=== PATIENT | female | born 1960 | race Two or more races ===

== ENCOUNTER 2020-09-20 12:51 | Outpatient (REF) | payer OTHER, SELFPAY ==
[2020-09-20 14:06] LABS: Alanine Aminotransferase 14 U/L (0-31); Albumin Level 4.1 g/dL (3.5-5.0); Alkaline Phosphatase 70 U/L (39-117); Anion Gap 10 (12-20); Aspartate Amino Transferase 17 U/L (5-31); Bilirubin Total 0.4 mg/dL (0.0-1.0); Blood Urea Nitrogen 14 mg/dL (9-16); Calcium 9.6 mg/dL (8.4-10.2); Carbon Dioxide 28 mmol/L (22-29); Chloride 106 mmol/L (96-108); Cholesterol 201 mg/dL; Estimated Glomerular Filt Rate > 60; Glucose Fasting 96 mg/dL (60-99); HDL Cholesterol 49 mg/dL; LDL Cholesterol Calculated 134 mg/dl; Potassium 4.3 mmol/L (3.3-5.1); Sodium 140 mmol/L (135-145); Total Protein 7.3 g/dL (6.5-8.0); Triglycerides 91 mg/dL
[2020-09-20 14:28] LABS: Vitamin D 25-OH Total 32.7 ng/mL (>30)
== END 2020-09-20 12:52 | disposition home or self-care (01) ==
LOC: HO.LAB 12:51
PROVIDERS: PCP Internal Medicine; Visit Provider Internal Medicine
DX: E55.9 Vitamin D deficiency, unspecified (principal); Z82.49 Family history of ischemic heart disease and other diseases of the circulatory system
CPT/HCPCS: 36415; 80053; 80061; 82306

== ENCOUNTER 2021-01-24 13:16 | Outpatient (REF) | payer OTHER, SELFPAY ==
[2021-01-25 01:10] LABS: CT PCR NOT DETECTED (Not Detect.); NG PCR NOT DETECTED (Not Detect.)
[2021-01-28 12:27] LABS: HPV mRNA E6/E7 rflx Not Detected (Not Detected)
== END 2021-01-24 13:17 | disposition home or self-care (01) ==
LOC: HO.LAB 13:16
PROVIDERS: PCP Internal Medicine; Visit Provider Advanced Practice Midwife
DX: Z01.419 Encounter for gynecological examination (general) (routine) without abnormal findings (principal); Z20.2 Contact with and (suspected) exposure to infections with a predominantly sexual mode of transmission
CPT/HCPCS: 87491; 87591; 87624; 88142

== ENCOUNTER 2021-03-01 12:56 | Outpatient (REF) | payer OTHER, SELFPAY ==
--- NOTE | ~2021-03-01 | MM_ITS ---
EXAMINATION: MM SCREENING DIGITAL BREAST TOMOSYNTHESIS, BILATERAL CLINICAL INFORMATION: Screening. Asymptomatic. The lifetime risk of breast cancer based on the Tyrer-Cuzick Model is 12%. COMPARISON: Mammography: 09/02/2017, 08/15/2016, 05/03/2015 TECHNIQUE: Digital breast tomosynthesis is performed in both the craniocaudal and mediolateral oblique views along with computer-aided detection (CAD). Synthesized 2D images are generated from the tomosynthesis. FINDINGS: There are scattered areas of fibroglandular density (ACR BI-RADS breast composition Category b). There are no significant masses, abnormal calcifications, or other abnormalities. Parenchymal pattern is similar to prior studies. There is no developing density or architectural abnormality. The axilla and skin contours are unremarkable. No significant changes. MM/MM tomosynthesis screening BI IMPRESSION: No mammographic evidence of malignancy. ASSESSMENT: BI-RADS 1: Negative RECOMMENDATION: Routine annual mammography screening. This patient's information was entered into a reminder system with a target due date for their next mammogram.
== END 2021-03-01 12:57 | disposition home or self-care (01) ==
LOC: HO.MAMMO 12:56
PROVIDERS: Visit Provider Advanced Practice Midwife
DX: Z12.31 Encounter for screening mammogram for malignant neoplasm of breast (principal)
CPT/HCPCS: 77063; 77067

== ENCOUNTER 2021-11-11 08:53 | Outpatient (REF) | payer OTHER, SELFPAY ==
[2021-11-11 09:05] LABS: MANUAL DIFF FLAG NO
[2021-11-11 09:12] LABS: Basophils Percent Auto 0.4 % (0-2); Eosinophils Percent Auto 0.4 % (0-4); Hematocrit 41.8 % (37.0-47.0); Hemoglobin 13.7 g/dl (12.0-16.0); Imm Gran Abs Auto 0.01 X10*3/uL (0.00-0.03); Imm Gran Pct Auto 0.1 % (0.0-0.4); Lymphocytes Percent Auto 40.4 % (20-40); Mean Corpuscular HGB Conc 32.8 g/dl (31.0-35.0); Mean Corpuscular Hemoglobin 30.4 pg (27.0-33.0); Mean Corpuscular Volume 92.7 fL (80.0-98.0); Mean Platelet Volume 11.3 fL (9.4-12.3); Monocytes Absolute Auto 0.6 X10*3/uL (0.1-1.2); Monocytes Percent Auto 8.1 % (2-11); Neutrophils Absolute Auto 3.8 x10*3/uL (2.0-8.3); Neutrophils Percent Auto 50.6 % (45-73); Platelet Count 262 X10*3/uL (160-400); Red Blood Count 4.51 X10*6/uL (4.20-5.50); Red Cell Distribution Width 13.1 % (11.0-16.0); White Blood Count 7.5 X10*3/uL (4.8-10.8)
[2021-11-11 09:44] LABS: Alanine Aminotransferase 15 U/L (0-31); Albumin Level 4.3 g/dL (3.5-5.0); Alkaline Phosphatase 75 U/L (39-117); Anion Gap 14 (12-20); Aspartate Amino Transferase 18 U/L (5-31); Bilirubin Total 0.4 mg/dL (0.0-1.0); Blood Urea Nitrogen 15 mg/dL (9-16); Calcium 9.7 mg/dL (8.4-10.2); Carbon Dioxide 25 mmol/L (22-29); Chloride 106 mmol/L (96-108); Cholesterol 217 mg/dL; Estimated Glomerular Filt Rate > 60; Glucose Fasting 94 mg/dL (60-99); HDL Cholesterol 50 mg/dL; LDL Cholesterol Calculated 150 mg/dl; Potassium 4.1 mmol/L (3.3-5.1); Sodium 141 mmol/L (135-145); Total Protein 7.5 g/dL (6.5-8.0); Triglycerides 89 mg/dL
[2021-11-11 10:05] LABS: Free T4 (Free Thyroxine) 1.15 ng/dL (0.71-1.85); Thyroid Stimulating Hormone 1.63 uIU/mL (0.32-4.0); Vitamin D 25-OH Total 30.7 ng/mL (>30)
[2021-11-11 11:09] LABS: Folate 19.4 ng/mL (> or = 4.0); Vitamin B12 795 pg/mL (200-900)
== END 2021-11-11 08:54 | disposition home or self-care (01) ==
LOC: HO.LAB 08:53
PROVIDERS: PCP Internal Medicine; Visit Provider Internal Medicine
DX: Z00.00 Encounter for general adult medical examination without abnormal findings (principal); E78.5 Hyperlipidemia, unspecified; R53.82 Chronic fatigue, unspecified; E55.9 Vitamin D deficiency, unspecified
CPT/HCPCS: 36415; 80053; 80061; 82306; 82607; 82746; 84439; 84443; 85025

== ENCOUNTER 2022-03-05 12:04 | Outpatient (REF) | payer OTHER, SELFPAY ==
--- NOTE | ~2022-03-05 | MM_ITS ---
EXAMINATION: MM SCREENING DIGITAL BREAST TOMOSYNTHESIS, BILATERAL CLINICAL INFORMATION: Screening. Asymptomatic. The lifetime risk of breast cancer based on the Tyrer-Cuzick Model is 10.5%. COMPARISON: Mammography: March 01, 2021 and studies dating back to April 04, 2014 TECHNIQUE: Digital breast tomosynthesis is performed in both the craniocaudal and mediolateral oblique views along with computer-aided detection (CAD). Synthesized 2D images are generated from the tomosynthesis. FINDINGS: The breasts are heterogeneously dense, which may obscure small masses (ACR BI-RADS breast composition Category c). There are no new significant masses, abnormal calcifications, or other abnormalities. A stable asymmetric density seen superior aspect of the left breast. MM/MM tomosynthesis screening BI IMPRESSION: No significant changes from prior exam. ASSESSMENT: BI-RADS 2: Benign RECOMMENDATION: Routine annual mammography screening. This patient's information was entered into a reminder system with a target due date for their next mammogram.
== END 2022-03-05 12:05 | disposition home or self-care (01) ==
LOC: HO.MAMMO 12:04
PROVIDERS: PCP Internal Medicine; Visit Provider Advanced Practice Midwife
DX: Z12.31 Encounter for screening mammogram for malignant neoplasm of breast (principal)
CPT/HCPCS: 77063; 77067

== ENCOUNTER 2022-04-23 10:31 | Outpatient (REF) | payer OTHER, SELFPAY ==
[2022-04-23 11:59] LABS: Anion Gap 13 (12-20); Blood Urea Nitrogen 24 mg/dL (9-16); Calcium 9.4 mg/dL (8.4-10.2); Carbon Dioxide 26 mmol/L (22-29); Chloride 107 mmol/L (96-108); Estimated Glomerular Filt Rate > 60; Glucose Fasting 95 mg/dL (60-99); Potassium 4.4 mmol/L (3.3-5.1); Sodium 142 mmol/L (135-145)
== END 2022-04-23 10:32 | disposition home or self-care (01) ==
LOC: HO.LAB 10:31
PROVIDERS: PCP Internal Medicine; Visit Provider Nurse Practitioner Family
DX: Z13.1 Encounter for screening for diabetes mellitus (principal); L98.9 Disorder of the skin and subcutaneous tissue, unspecified
CPT/HCPCS: 36415; 80048

== ENCOUNTER 2022-06-03 06:28 | Emergency (ER) | payer OTHER, SELFPAY ==
--- NOTE | ~2022-06-03 | XR_ITS ---
EXAMINATION: XR CHEST CLINICAL INFORMATION: SOB COMPARISON: None available. TECHNIQUE: 2 views of the chest were obtained. FINDINGS: No significant abnormality is noted involving the heart, lungs, mediastinum, bony thorax or soft tissues. XR/XR chest 2V IMPRESSION: Unremarkable chest exam.
[2022-06-03 06:39] VITALS: BP 120/70; BP 126/65; PULSE 67; PULSE 70; RESP 17; TEMP 37.1; O2SAT 100; BMI 22.3
--- NOTE | 2022-06-03 06:45 | ED_ITS ---
HPI - Asthma General Chief Complaint: Asthma Stated Complaint: SOB, 100% RA,FULL SENTENCES PER EMS Time Seen by Provider: 06/03/22 06:39 Source: patient and EMS Mode of arrival: EMS History of Present Illness HPI Narrative: 61-year-old female with a past medical history of asthma, HLD, presenting to the ED complaining sudden onset SOB since 04:00AM. Admits symptoms are intermittent. Denies associated chest pain, nausea/vomiting, pedal edema, calf pain. Admits grandson recently positive for influenza. MD complaint: shortness of breath Onset (ago): hour(s) Related Data Previous Rx's Medication Instructions Recorded albuterol sulfate 90 mcg/actuation 2 inh inhalation Q4-6H PRN 03/13/20 breath activated powder inhaler shortness of breath or wheezing 30 (ProAir RespiClick) days #1 ea cholecalciferol (vitamin D3) 25 25 mcg PO DAILY #30 caps 06/26/21 mcg (1,000 unit) tablet fluticasone propionate 50 2 inh inhalation BID 30 days #60 ea 06/26/21 mcg/actuation blister powder for inhalation (Flovent Diskus) hydrocortisone 1 % topical cream 1 appl topical TID PRN skin 04/04/22 (Anti-Itch (hydrocortisone)) irritation 30 days #28.4 grams albuterol sulfate 2.5 mg/3 mL 0.8333 mg PO Q6H #90 mL 04/16/22 (0.083 %) solution for nebulization Allergies Allergy/AdvReac Type Severity Reaction Status Date / Time Sulfa (Sulfonamide Allergy Intermediate swelling, Verified 04/22/22 15:40 Antibiotics) itchiness Review of Systems Review of Systems: Constitutional: No Fever, No Chills, No Fatigue, No Malaise ENT/Mouth: No Ear Pain, No Nasal Congestion, No sore throat, No Rhinorrhea, No Swallowing Difficulty Eyes: No Eye Pain, No Swelling, No Redness, No Vision Changes Cardiovascular: No Chest Pain, + SOB, No Dyspnea on Exertion, No Orthopnea, No Edema, No Palpitations Respiratory: No Cough, No Sputum, No Dyspnea Gastrointestinal: No Nausea, No Vomiting, No Diarrhea, No Constipation, No Abdominal pain Genitourinary: No Dysuria, No Urinary Frequency, No Hematuria, No Flank Pain Musculoskeletal: No joint pain, No Myalgias, No Joint Swelling Skin: No Skin Lesions, No rash Neuro: No Weakness, No Numbness, No Dizziness, No Headache Yes all other systems are reviewed and are negative Constitutional: Constitutional: Reports as per [facility] Past Medical History Attestation statement: The following information was validated with the patient. Medical History Hypovitaminosis D Moderate persistent asthma Pure hypercholesterolemia Surgical History History of tubal ligation Family History Family History Father Asthma Heart attack Mother Heart attack Asthma Sister History of breast cancer Family/Other Ovarian cancer Maternal Uncle Prostate cancer Paternal Uncle Colon cancer Social History Social History Housing: Apartment Alcohol intake: never Patient Tobacco Use Status: Never used Tobacco Smoked in Last 30 Days: No e-Cigarette/Vaping Use: Never Used Second Hand Smoke Exposure: No Advance Directives: No Advance Directives Information Provided: Yes Patient : No service: No Current occupational status: disabled Cognitive needs: No Hearing needs: No Vision needs: Yes Physical Exam Vital Signs: Vital Signs: Last Vital Signs Temp 98.6 F 06/03/22 07:44 Pulse 66 06/03/22 11:26 Resp 10 L 06/03/22 11:26 BP 117/65 06/03/22 11:26 Pulse Ox 98 06/03/22 11:26 O2 Del Method Room Air 06/03/22 11:26 BMI result Body Mass Index 22.3 Const: General: cooperative, healthy appearing and no acute distress Orientation/consciousness: patient oriented x3 Limitations: no limitations HEENT: Head: Yes normal to inspection and Yes atraumatic Ears: hearing pablo sly normal bilaterally General nose exam: Normal external nose present Face and sinus: Yes normal facial exam Eyes: General: appearance normal, both eyes and all related structures EOM: EOMs intact bilaterally Neck: Neck: Yes normal visual inspection and Yes no meningeal signs Resp: Effort & Inspection: normal respiratory effort and no respiratory distress Auscultation: clear to auscultation bilaterally, no crackles, no rales, no rhonchi and no wheezes Cardio: Rate: regular rate Heart sounds: S1 normal heart sound present and S2 normal heart sound present GI: Inspection: Yes normal to inspection Palpation (GI): Soft to palpation, nontender, no guarding and not rigid Skin: Rashes: no rashes Wounds: no wounds Neuro: General: patient oriented x3, tone normal and no meningeal signs Gait exam (Neuro): Normal gait present Extrem: General: Yes normal to inspection, Yes no pedal edema and Yes no calf tenderness Course Course Course Narrative: -1117--labs reassuring. Troponin x2 negative -CXR unremarkable Results discussed with patient including worrisome signs and symptoms and strict return precautions, and when to return to the emergency department. They verbalized understanding and feel safe for discharge at this time. Medical Decision Making Medical Decision Making MDM Narrative: 61-year-old female with a past medical history of asthma, HLD, presenting to the ED complaining sudden onset SOB since 04:00AM. On exam vital signs stable, NAD, nontoxic appearing, lungs CTA, abdomen soft/nontender, no pedal edema or calf tenderness. Concern for anxiety reaction vs atypical ACS vs ? Asthma exacerbation. Low suspicion for CHF or PE or dissection Plan: EKG, labs, CXR, COVID/flu testing Please refer to course for remaining clinical decision making, interpretation of labs/imaging results, and discussions with consultants and/or family members. Differential Diagnosis Differential Diagnoses: The differential diagnosis associated with the presentation includes As above Admission/Observation Consideration of admission/observation: Escalation of care including admission/observation considered Lab Data [facility] Lab Attestation statement: I reviewed the patient's lab results. 06/03/22 07:56 06/03/22 07:56 Labs: Lab Results 06/03/22 06/03/22 06/03/22 Range/Units 07:56 07:56 07:56 WBC 7.7 (4.8-10.8) X10*3/uL RBC 4.21 (4.20-5.50) X10*6/uL Hgb 12.7 (12.0-16.0) g/dl Hct 38.9 (37.0-47.0) % MCV 92.4 (80.0-98.0) fL MCH 30.2 (27.0-33.0) pg MCHC 32.6 (31.0-35.0) g/dl RDW 12.5 (11.0-16.0) % Plt Count 260 (160-400) X10*3/uL MPV 11.3 (9.4-12.3) fL Immature Gran % (Auto) 0.3 (0.0-0.4) % Neut % (Auto) 64.9 (45-73) % Lymph % (Auto) 26.2 (20-40) % Dupage % (Auto) 8.2 (2-11) % Eos % (Auto) 0.3 (0-4) % Baso % (Auto) 0.1 (0-2) % Lymph # (Auto) 2.0 (1.2-4.9) X10*3/uL Dupage # (Auto) 0.6 (0.1-1.2) X10*3/uL Eos # (Auto) 0.0 (0.0-0.4) X10*3/uL Baso # (Auto) 0.0 (0.0-0.2) X10*3/uL Abs Immat Gran (auto) 0.02 (0.00-0.03) X10*3/uL Absolute Neuts (auto) 5.0 (2.0-8.3) x10*3/uL Absolute Nucleated RBC 0.000 (0.0-0.012) X10*3/uL Nucleated RBC % (auto) 0.0 (0.0-0.2) /100WBC Sodium 143 (135-145) mmol/L Potassium 3.8 (3.3-5.1) mmol/L Chloride 110 H (96-108) mmol/L Carbon Dioxide 27 (22-29) mmol/L Anion Gap 10 L (12-20) BUN 18 H (9-16) mg/dL Creatinine 0.69 (0.5-1.4) mg/dL Estim Creat Clear Calc 85.3 Estimated GFR > 60 Random Glucose 95 (60-115) mg/dL Calcium 9.4 (8.4-10.2) mg/dL Troponin I High Sens < 2.7 (<3.5-17.0) ng/L COVID-19 (MARIFER) (Negative) COVID-19 Clin Com Influenza Type A (HAKEEM) (Negative) Influenza Type B (HAKEEM) (Negative) Influenza A & B Note 06/03/22 06/03/22 06/03/22 Range/Units 07:56 07:56 10:46 WBC (4.8-10.8) X10*3/uL RBC (4.20-5.50) X10*6/uL Hgb (12.0-16.0) g/dl Hct (37.0-47.0) % MCV (80.0-98.0) fL MCH (27.0-33.0) pg MCHC (31.0-35.0) g/dl RDW (11.0-16.0) % Plt Count (160-400) X10*3/uL MPV (9.4-12.3) fL Immature Gran % (Auto) (0.0-0.4) % Neut % (Auto) (45-73) % Lymph % (Auto) (20-40) % Dupage % (Auto) (2-11) % Eos % (Auto) (0-4) % Baso % (Auto) (0-2) % Lymph # (Auto) (1.2-4.9) X10*3/uL Dupage # (Auto) (0.1-1.2) X10*3/uL Eos # (Auto) (0.0-0.4) X10*3/uL Baso # (Auto) (0.0-0.2) X10*3/uL Abs Immat Gran (auto) (0.00-0.03) X10*3/uL Absolute Neuts (auto) (2.0-8.3) x10*3/uL Absolute Nucleated RBC (0.0-0.012) X10*3/uL Nucleated RBC % (auto) (0.0-0.2) /100WBC Sodium (135-145) mmol/L Potassium (3.3-5.1) mmol/L Chloride (96-108) mmol/L Carbon Dioxide (22-29) mmol/L Anion Gap (12-20) BUN (9-16) mg/dL Creatinine (0.5-1.4) mg/dL Estim Creat Clear Calc Estimated GFR Random Glucose (60-115) mg/dL Calcium (8.4-10.2) mg/dL Troponin I High Sens < 2.7 (<3.5-17.0) ng/L COVID-19 (MARIFER) Negative (Negative) COVID-19 Clin Com See Note Influenza Type A (HAKEEM) Negative (Negative) Influenza Type B (HAKEEM) Negative (Negative) Influenza A & B Note See Note Independent Interpretation I performed an independent interpretation of an: EKG Interpretation: EKG normal sinus rhythm at a rate of 64. CT interval 160. QTC 429. No STEMI Radiology Impression Discussion of test interpretation with radiology: I have reviewed the radiologist's reading. External Record Review External record reviewed: Inpatient record, Office record, Outpatient record, P rior outpatient labs, Prior outpatient radiology, Primary care record and Outside ED record Discharge Plan Discharge Clinical Impression: Shortness of breath Patient Disposition: Home, Self-Care Instructions: Shortness of Breath (ED) Additional Instructions: Your blood work and x-ray were reassuring Please follow-up with her doctor If symptoms persist or worsen return to the Prescriptions: No Action ProAir RespiClick 90 mcg/actuation aerosol powdr breath activated 2 inh inhalation Q4-6H PRN (Reason: shortness of breath or wheezing) 30 Days Qty: 1 6RF Flovent Diskus 50 mcg/actuation blister with device 2 inh inhalation BID 30 Days Qty: 60 6RF cholecalciferol (vitamin D3) 25 mcg (1,000 unit) tablet 25 mcg PO DAILY Qty: 30 6RF hydrocortisone [Anti-Itch (HC)] 1 % cream 1 appl topical TID PRN (Reason: skin irritation) 30 Days Qty: 28.4 0RF albuterol sulfate 2.5 mg /3 mL (0.083 %) solution for nebulization 0.8333 mg PO Q6H Qty: 90 0RF Referrals: Rama Mays MD [Primary Care Provider] - 5 days Interventions: ED Discharge Assessment Last Done: 06/03/22 12:32 Discharge Date/Time: 06/03/22 12:33
--- NOTE | 2022-06-03 06:50 | ECG_ITS ---
Test Reason : SOB Blood Pressure : / mmHG Vent. Rate : 065 BPM Atrial Rate : 065 BPM P-R Int : 148 ms QRS Dur : 086 ms QT Int : 418 ms P-R-T Axes : 026 050 062 degrees QTc Int : 434 ms Normal sinus rhythm Septal infarct , age undetermined Abnormal ECG No previous ECGs available Referred By: Courtney Calderon Electronically Signed By:NENO MORENO
[2022-06-03 07:44] VITALS: BP 124/76; PULSE 65; RESP 14; TEMP 37; O2SAT 97
[2022-06-03 08:05] LABS: MANUAL DIFF FLAG NO
[2022-06-03 08:07] LABS: Basophils Percent Auto 0.1 % (0-2); Eosinophils Percent Auto 0.3 % (0-4); Hematocrit 38.9 % (37.0-47.0); Hemoglobin 12.7 g/dl (12.0-16.0); Imm Gran Abs Auto 0.02 X10*3/uL (0.00-0.03); Imm Gran Pct Auto 0.3 % (0.0-0.4); Lymphocytes Percent Auto 26.2 % (20-40); Mean Corpuscular HGB Conc 32.6 g/dl (31.0-35.0); Mean Corpuscular Hemoglobin 30.2 pg (27.0-33.0); Mean Corpuscular Volume 92.4 fL (80.0-98.0); Mean Platelet Volume 11.3 fL (9.4-12.3); Monocytes Absolute Auto 0.6 X10*3/uL (0.1-1.2); Monocytes Percent Auto 8.2 % (2-11); Neutrophils Percent Auto 64.9 % (45-73); Platelet Count 260 X10*3/uL (160-400); Red Blood Count 4.21 X10*6/uL (4.20-5.50); Red Cell Distribution Width 12.5 % (11.0-16.0); White Blood Count 7.7 X10*3/uL (4.8-10.8)
[2022-06-03 08:22] LABS: Anion Gap 10 (12-20); Blood Urea Nitrogen 18 mg/dL (9-16); Calcium 9.4 mg/dL (8.4-10.2); Carbon Dioxide 27 mmol/L (22-29); Chloride 110 mmol/L (96-108); Creatinine Clr Calc Pharmacy 85.3; Estimated Glomerular Filt Rate > 60; Glucose Random 95 mg/dL (60-115); Potassium 3.8 mmol/L (3.3-5.1); Sodium 143 mmol/L (135-145)
[2022-06-03 08:24] LABS: COVID-19 Test Negative (Negative); IDNOW Serial# 08D9AD1C; IDNOW Serial# BCCEAD1C; Influenza A Negative (Negative); Influenza B2 Negative (Negative)
[2022-06-03 08:35] LABS: Troponin-I High Sensitivity < 2.7 ng/L (<3.5-17.0)
[2022-06-03 11:14] LABS: Troponin-I High Sensitivity < 2.7 ng/L (<3.5-17.0)
[2022-06-03 11:26] VITALS: BP 117/65; PULSE 66; RESP 10; O2SAT 98
== END 2022-06-03 12:33 | disposition home or self-care (01) ==
PROVIDERS: Physician Assistant; Emergency Provider Emergency Medicine; PCP Internal Medicine
DX: R06.02 Shortness of breath (principal); Z20.822 Contact with and (suspected) exposure to COVID-19
CPT/HCPCS: 36415; 71046; 80048; 84484; 85025; 87502; 87635; 93005; 99283; 99284

== ENCOUNTER 2022-06-11 13:35 | Outpatient (REF) | payer OTHER, SELFPAY ==
[2022-06-11 15:42] LABS: Appearance Urine Clear; Color Urine Yellow; Glucose Urine UA Negative (Negative); Leukocyte Esterase Urine Moderate (2+) (Negative); Nitrite Urine Negative (Negative); PH 5.5 (5.0-9.0); Specific Gravity - Urine 1.025 (1.005-1.025); UMIC TRIGGER UACC YES; Urine Blood Trace (Negative); Urine Ketones Trace mg/dL (Negative); Urine Protein Trace mg/dL (Neg-Trace)
[2022-06-11 17:10] LABS: Bacteria Urine 3+ (None Seen); Hyaline Casts Urine 0-2 /LPF (0-2); RBC Urine 0-2 /HPF (0-2); Squamous Epithelial Cell Urine 0-2 /HPF (0-2); UACC Culture Trigger YES
== END 2022-06-11 13:36 | disposition home or self-care (01) ==
LOC: HO.LAB 13:35
PROVIDERS: PCP Internal Medicine; Visit Provider Internal Medicine
DX: R30.0 Dysuria (principal)
CPT/HCPCS: 81001; 87086; 87088; 87186

== ENCOUNTER 2022-10-14 15:07 | Outpatient (REF) | payer OTHER, SELFPAY ==
--- NOTE | 2022-10-14 16:07 | PFT_ITS ---
FLOWS: 1. FEV1 91% of predicted at 2.62 L. 2. FVC 85% of predicted at 3.19 L. 3. FEV1 to FVC ratio of 0.82. 4. Positive bronchodilator response. LUNG VOLUMES: 1. Total lung capacity 83% of predicted at 4.63 L. 2. Residual volume 45% of predicted at 1.03 L. 3. Slow vital capacity 106% of predicted at 3.61 L. 4. Expiratory reserve volume 62% of predicted at 0.61 L. 5. Diffusion capacity is mildly decreased. IMPRESSION: No obstructive or restrictive ventilatory defect. Positive bronchodilator response. Decreased diffusion capacity suggests emphysema. Jose Guadalupe Amos MD AP/MODL / [id number]
== END 2022-10-14 15:08 | disposition home or self-care (01) ==
LOC: HO.RESP 15:07
PROVIDERS: PCP Internal Medicine; Visit Provider Internal Medicine
DX: J45.30 Mild persistent asthma, uncomplicated (principal)
CPT/HCPCS: 94010; 94727; 94729

== ENCOUNTER → 2022-10-14 16:07 | Outpatient (BNV) | payer OTHER, SELFPAY | PROVIDERS: PCP Internal Medicine; Visit Provider Internal Medicine Pulmonary Disease | DX: J45.30 Mild persistent asthma, uncomplicated (principal) | CPT/HCPCS: 94060; 94727; 94729 ==

== ENCOUNTER 2022-11-12 12:48 | Outpatient (AMB) | payer OTHER, SELFPAY ==
--- NOTE | 2022-11-12 12:50 | MHC.PC.OV ---
Vital Signs 11/12/22 12:53 Height 5 ft 8 in Weight 150 lb BMI 22.8 BP 110/62 Blood Pressure Location Lt brachial Position Sitting Intake Visit Reasons: Annual Exam Intake Note: Patient here for an annual physical exam General House Worker Required: No Accompanied by: Spouse Allergies Sulfa (Sulfonamide Antibiotics) Allergy (Intermediate, Verified 11/12/22 13:08) swelling, itchiness Medication List - Last Reconciled 11/12/22 by Rama Lockett MD albuterol sulfate 90 mcg/actuation (ProAir RespiClick) 2 inhalations inhalation Q4-6H PRN 30 days albuterol sulfate 0.8333 mg PO Q6H cholecalciferol (vitamin D3) 25 mcg PO DAILY clotrimazole 1% (Antifungal (clotrimazole)) 1 appl topical BID 2 weeks fluticasone propionate 50 mcg/actuation (Flovent Diskus) 2 inhalations inhalation BID 30 days hydrocortisone 1% (Anti-Itch (hydrocortisone)) 1 appl topical TID PRN 30 days Tobacco use date assessed: 04/22/22 Dental Screening Dental Screen Date: 11/12/22 Did you have a dental visit in the last 12 months?: Yes Did you have a dental problem in the last 6 months where you did not have access to dental care?: No Was dental information given to patient?: Patient has dentist HPI HPI Comments History of Present Illness Details This is a 62-year-old female that comes accompanied for her physical exam. Depression is in remission but she cannot sleep well. She also has headaches few times a week. Last mammogram was February 2022 but she has noticed a right breast lump at 04:00 o'clock and ultrasound of the breast and diagnostic mammogram will be order. Cologuard was done 2021 and was negative. Pap smear was done 2020 and was normal with HPV negative. Also complains of right hip pain that has been bothering her for few months but has full active range of motion. [facility] Medical History (Updated 11/12/22 @ 13:27 by Rama Lockett MD) Pure hypercholesterolemia Hypovitaminosis D Moderate persistent asthma Surgical History History of tubal ligation Family History Father Asthma Heart attack Mother Heart attack Asthma Sister History of breast cancer Family/Other Ovarian cancer Maternal Uncle Prostate cancer Paternal Uncle Colon cancer Social History Housing: Apartment Alcohol intake: never Patient Tobacco Use Status: Never used Tobacco e-Cigarette/Vaping Use: Never Used Second Hand Smoke Exposure: No service: No Current occupational status: disabled Cognitive needs: No Hearing needs: No Vision needs: Yes Female Reproductive History Menstrual Age of Menarche: 12 Questionnaire Thrive Questionnaire Date Thrive assessed: 03/17/22 JUSTUS-7 AMB Questionnaire JUSTUS-7 Date JUSTUS - 7 assessed: 03/17/22 Source: Developed by Drs. Narayan Nuñez, Thea Fisher, Radhames Young and colleagues, with an educational mark from [employer]. Review of Systems Const All systems reviewed & are unremarkable except as noted in HPI and below Eyes Reports no additional complaints, Denies change in vision and Denies other visual disturbances Card Denies chest pain at rest, Denies chest pain with activity, Denies edema, Denies irregular heart rhythm, Denies claudication, Denies dyspnea, Denies dyspnea on exertion, Denies orthopnea, Denies paroxysmal nocturnal dyspnea and Denies slow heart rate Resp Denies cough, Denies dyspnea and Denies dyspnea on exertion GI Denies abdominal pain, Denies change in bowel habits, Denies excessive flatus, Denies nausea and Denies vomiting Denies urinary incontinence, Denies urinary hesitancy and Denies urinary urgency Musc Denies abnormal gait, Denies atrophy, Denies deformity and Denies limited range of motion Skin/Breast Denies bleeding lesions, Denies changing lesions and Denies rash Neuro Denies abnormal gait and Denies lack of coordination Physical exam (Primary Care) Vital Signs: Last Vital Signs BP 110/62 11/12/22 12:53 BMI result Body Mass Index 22.8 Tobacco/Smoking Status: Tobacco use Status Tobacco use date assessed 04/22/22 11/12/22 12:52 Patient Tobacco Use Status Never used Tobacco 11/12/22 12:52 e-Cigarette/Vaping Use Never Used 11/12/22 12:52 Thrive Assessment: Date of Thrive Assessment Date Thrive assessed 03/17/22 11/12/22 12:52 Const Orientation/consciousness: patient oriented x3 HENMT Head: Yes normal to inspection, Yes normocephalic and Yes atraumatic Ears: external ears normal Eyes General: appearance normal, both eyes and all related structures Eyelids: Yes eyelids normal Conjunctivae: conjunctivae normal Neck Neck: Yes normal visual inspection and Yes supple Chest Breast/axilla palpation: abnormal palpation of the breast (lump at 4 o'clock) Resp Effort & Inspection: normal respiratory effort Auscultation: clear to auscultation bilaterally Cardio Jugular venous distension: no JVD Rate: regular rate Rhythm: regular rhythm Heart sounds: S1 normal heart sound present and S2 normal heart sound present GI Inspection: Yes normal to inspection Palpation (GI): Soft to palpation and nontender Auscultation: normal bowel sounds Skin General skin exam: no rashes or lesions noted Neuro General: patient oriented x3 and no focal motor deficits Extrem General: Yes full ROM Psych Appearance: grossly normal Assessment and Plan Assessment & Plan (1) Encounter for physical examination: Code(s): Z00.00 - Encounter for general adult medical examination without abnormal findings Plan: Repeat in a year (2) Mild recurrent major depression: Code(s): F33.0 - Major depressive disorder, recurrent, mild Plan: In remission Orders: Orders Vitamin D 25-OH Total Today E55.9 - Vitamin D deficiency, unspecified Lipid Panel Today Z00.00 - Encounter for general adult medical examination without abnormal findings MM diagnostic mammo unilat RT Today N63.10 - Unspecified lump in the right breast, unspecified quadrant Comprehensive Crosby. Panel Fast Today Z00.00 - Encounter for general adult medical examination without abnormal findings US breast RT complete Today N63.10 - Unspecified lump in the right breast, unspecified quadrant XR hip RT min 2V Today M25.551 - Pain in right hip Medications: New sumatriptan succinate do not exceed 8 doses per 24 hrs 25 mg PO Q2-4H 30 days PRN 9 tabs 2RF migraine headache amitriptyline 10 mg PO BEDTIME 90 days 90 tabs 1RF G47.00 - Insomnia, unspecified Changed From cholecalciferol (vitamin D3) 25 mcg PO DAILY 30 caps 6RF To cholecalciferol (vitamin D3) 25 mcg PO DAILY 90 days 90 caps 3RF Coding Level of Care Code Est Pt Prev Care 40-64y(42423) Diagnoses Encounter for physical examination Z00.00 Mild recurrent major depression F33.0 Time Spent (min) 35
[2022-11-12 12:53] VITALS: BP 110/62; BMI 22.8
== END 2022-11-12 13:18 | disposition home or self-care (01) ==
PROVIDERS: Visit Provider Internal Medicine
DX: Z00.00 Encounter for general adult medical examination without abnormal findings (principal); F33.0 Major depressive disorder, recurrent, mild
CPT/HCPCS: 99396

== ENCOUNTER 2022-11-12 13:37 | Outpatient (REF) | payer OTHER, SELFPAY ==
--- NOTE | ~2022-11-12 | XR_ITS ---
EXAMINATION: XR HIP, RIGHT CLINICAL INFORMATION: Pain. COMPARISON: None available. TECHNIQUE: AP and frog-leg lateral views of the right hip. FINDINGS: No fracture. Alignment is anatomic. Hip joint space is maintained. Soft tissues are unremarkable. XR/XR hip RT min 2V IMPRESSION: Normal right hip.
== END 2022-11-12 13:38 | disposition home or self-care (01) ==
LOC: HO.XRAY 13:37
PROVIDERS: PCP Internal Medicine; Visit Provider Internal Medicine
DX: M25.551 Pain in right hip (principal)
CPT/HCPCS: 73502

== ENCOUNTER 2022-11-13 13:31 | Outpatient (AMB) | payer OTHER, SELFPAY ==
--- NOTE | 2022-11-13 13:34 | MHC.OFFVIS ---
Intake Vital Signs 11/13/22 13:39 Height 5 ft 8 in Weight 149 lb 14.629 oz BMI 22.8 BP 92/62 Blood Pressure Location Lt brachial Pulse 79 Pulse Source Doppler Pulse Oximetry (%) 96 Intake Visit Reasons: COPD Allergies Sulfa (Sulfonamide Antibiotics) Allergy (Intermediate, Verified 11/12/22 13:08) swelling, itchiness HPI COPD HPI Details 62-year-old lady, nonsmoker, with underlying history of asthma referred for management of her pulmonary concerns. Patient states she gets intermittent wheezing that is suboptimally controlled on her current regimen of Flovent and albuterol MDI. She does complain of multiple environmental allergies. Patient is scheduled to see in airframe and power plant mechanic. She does not have pets in her house, though her daughter does have a dog in she gets worse allergy symptoms when visiting her. She denies exposure to industrial dusts. Patient's mother and father both have asthma. [facility] Medical History (Updated 11/13/22 @ 14:14 by Jose Guadalupe Amos MD) Pure hypercholesterolemia Hypovitaminosis D Moderate persistent asthma Surgical History History of tubal ligation Family History Father Asthma Heart attack Mother Heart attack Asthma Sister History of breast cancer Family/Other Ovarian cancer Maternal Uncle Prostate cancer Paternal Uncle Colon cancer Social History Housing: Apartment Alcohol intake: never Patient Tobacco Use Status: Never used Tobacco e-Cigarette/Vaping Use: Never Used Second Hand Smoke Exposure: No service: No Current occupational status: disabled Cognitive needs: No Hearing needs: No Vision needs: Yes Female Reproductive History Menstrual Age of Menarche: 12 Review of Systems Const Denies daytime sleepiness, Denies excessive sweating, Denies fatigue, Denies fever(s), Denies lethargy, Denies malaise, Denies night sweats, Denies snoring and Denies weight loss Eyes Denies blurry vision and Denies itchy eyes ENT Denies nasal congestion, Denies post nasal drip, Denies sinus pain, Denies sinus pressure and Denies other ( Thrush) Card Denies chest pain, Denies pedal edema, Denies dyspnea, Denies orthopnea and Denies paroxysmal nocturnal dyspnea Resp Denies cough, Denies hemoptysis, Denies excessive phlegm production, Denies dyspnea, Denies snoring and Reports wheezing GI Denies abdominal pain and Denies heartburn Musc Denies myalgias, Denies arthralgias and Denies joint swelling Skin/Breast Denies rash Neuro Denies memory loss and Denies seizure-like activity Psych Denies abnormal sleep pattern, Denies anxiety and Denies memory loss Endo Denies excessive sweating, Denies fatigue and Denies heat intolerance Cesar/Lymph Denies easy bruising Aller/Immun Denies itchy eyes, Denies seasonal rhinorrhea and Reports wheezing Physical Exam Vital Signs: Last Vital Signs Pulse 79 11/13/22 13:39 BP 92/62 11/13/22 13:39 Pulse Ox 96 11/13/22 13:39 BMI result Body Mass Index 22.8 Const General: no acute distress and alert Nutritional Appearance: not obese Orientation/consciousness: Other orientation findings ( oriented) HEENT Head: Yes atraumatic Eyes General: appearance normal, both eyes and all related structures Sclerae: sclerae normal EOM: EOMs intact bilaterally Neck Neck: Yes supple Lymphatic: no lymphadenopathy noted Resp Effort & Inspection: normal respiratory effort and no use of accessory muscles Auscultation: clear to auscultation bilaterally Cardio Rate: regular rate Rhythm: regular rhythm Heart sounds: no gallops, no murmurs and no rubs Skin General skin exam: other ( warm) Extrem General: No clubbing, No cyanosis and No edema Assessment & Plan Assessment & Plan (1) Moderate persistent asthma: Code(s): J45.40 - Moderate persistent asthma, uncomplicated Plan: Results of pulmonary function test reviewed. Underlying asthma suboptimally controlled on Flovent and albuterol MDI. Will change Flovent to Breo. (2) Environmental allergies: Code(s): Z91.09 - Other allergy status, other than to drugs and biological substances Plan: Will obtain IgE level, CBC with differential, and RAST panel for further evaluation. Orders: Orders Complete Blood Count Auto Diff Today J45.30 - Mild persistent asthma, uncomplicated Rast Allergen Today J45.30 - Mild persistent asthma, uncomplicated Medications: New fluticasone furoate-vilanterol 200-25 mcg/dose (Breo Ellipta) 1 inh inhalation DAILY 30 days 1 ea 6RF Discontinued fluticasone propionate 50 mcg/actuation (Flovent Diskus) Discontinued Reason: Doctor's Order 2 inhalations inhalation BID 30 days 60 ea 6RF Coding Level of Care Code New Pt Level 4 (68670) Diagnoses Moderate persistent asthma J45.40 Environmental allergies Z91.09
[2022-11-13 13:39] VITALS: BP 92/62; PULSE 79; O2SAT 96; BMI 22.8
== END 2022-11-13 13:54 | disposition home or self-care (01) ==
PROVIDERS: PCP Internal Medicine; Visit Provider Internal Medicine Pulmonary Disease
DX: J45.40 Moderate persistent asthma, uncomplicated (principal); Z91.09 Other allergy status, other than to drugs and biological substances
CPT/HCPCS: 99214

== ENCOUNTER → 2022-11-13 13:31 | Outpatient (BNVA) | payer OTHER, SELFPAY | PROVIDERS: PCP Internal Medicine; Visit Provider Internal Medicine Pulmonary Disease | DX: J45.40 Moderate persistent asthma, uncomplicated (principal); Z79.899 Other long term (current) drug therapy; Z91.09 Other allergy status, other than to drugs and biological substances | CPT/HCPCS: 99212 ==

== ENCOUNTER 2022-11-14 15:53 | Outpatient (REF) | payer OTHER, SELFPAY ==
[2022-11-14 16:07] LABS: MANUAL DIFF FLAG NO
[2022-11-14 16:13] LABS: Basophils Percent Auto 0.1 % (0-2); Eosinophils Percent Auto 0.4 % (0-4); Hematocrit 41.3 % (37.0-47.0); Hemoglobin 13.6 g/dl (12.0-16.0); Imm Gran Abs Auto 0.01 X10*3/uL (0.00-0.03); Imm Gran Pct Auto 0.1 % (0.0-0.4); Lymphocytes Absolute Auto 2.8 X10*3/uL (1.2-4.9); Lymphocytes Percent Auto 35.1 % (20-40); Mean Corpuscular HGB Conc 32.9 g/dl (31.0-35.0); Mean Corpuscular Hemoglobin 30.6 pg (27.0-33.0); Mean Platelet Volume 11.3 fL (9.4-12.3); Monocytes Absolute Auto 0.6 X10*3/uL (0.1-1.2); Monocytes Percent Auto 7.3 % (2-11); Neutrophils Absolute Auto 4.5 x10*3/uL (2.0-8.3); Platelet Count 269 X10*3/uL (160-400); Red Blood Count 4.44 X10*6/uL (4.20-5.50); Red Cell Distribution Width 12.9 % (11.0-16.0); White Blood Count 7.9 X10*3/uL (4.8-10.8)
[2022-11-14 17:25] LABS: Alanine Aminotransferase 10 U/L (0-31); Alkaline Phosphatase 76 U/L (39-117); Anion Gap 15 (12-20); Aspartate Amino Transferase 18 U/L (5-31); Bilirubin Total 0.4 mg/dL (0.0-1.0); Blood Urea Nitrogen 22 mg/dL (9-16); Calcium 9.3 mg/dL (8.4-10.2); Carbon Dioxide 24 mmol/L (22-29); Chloride 106 mmol/L (96-108); Cholesterol 208 mg/dL (<200); Estimated Glomerular Filt Rate > 60; Glucose Fasting 86 mg/dL (60-99); HDL Cholesterol 49 mg/dL (>40); LDL Cholesterol Calculated 122 mg/dL (<100); Potassium 4.2 mmol/L (3.3-5.1); Sodium 141 mmol/L (135-145); Total Protein 7.7 g/dL (6.5-8.0); Triglycerides 189 mg/dL (<150)
[2022-11-14 17:30] LABS: Vitamin D 25-OH Total 36.5 ng/mL (>30)
== END 2022-11-14 15:54 | disposition home or self-care (01) ==
LOC: HO.LAB 15:53
PROVIDERS: PCP Internal Medicine; Visit Provider Internal Medicine Pulmonary Disease
DX: Z00.00 Encounter for general adult medical examination without abnormal findings (principal); J45.30 Mild persistent asthma, uncomplicated; E55.9 Vitamin D deficiency, unspecified
CPT/HCPCS: 36415; 80053; 80061; 82306; 82785; 85025; 86003

== ENCOUNTER 2022-12-03 14:12 | Outpatient (REF) | payer OTHER, SELFPAY ==
--- NOTE | ~2022-12-03 | MM_ITS ---
EXAMINATION: MM DIAGNOSTIC DIGITAL BREAST TOMOSYNTHESIS, BILATERAL US BREAST LIMITED, RIGHT MAMMOGRAPHY: CLINICAL INFORMATION: 62-year-old female complaining of right breast palpable lump at the 4:00 axis. COMPARISON: Mammography: 03/05/2022, 03/01/2021, 09/02/2017, 08/15/2016, 05/03/2015 TECHNIQUE: Digital breast tomosynthesis is performed in both the craniocaudal and mediolateral oblique views along with computer-aided detection (CAD). Synthesized 2D images are generated from the tomosynthesis. FINDINGS: There are scattered areas of fibroglandular density (ACR BI-RADS breast composition Category b). There are no suspicious masses, suspicious grouped calcifications, or areas of architectural distortion in either breast. The parenchymal pattern is stable from prior exams. There are no skin changes or axillary abnormalities. No mammographic abnormalities evident in the region of the palpable focus of concern marked by a skin marker technologist. ULTRASOUND: CLINICAL INFORMATION: 62-year-old female complaining of right breast palpable lump at the 4:00 axis. COMPARISON: None relevant. TECHNIQUE: Targeted sonographic evaluation was performed using a high frequency linear transducer. Attention was given to the palpable abnormality right breast at the 4:00 axis. Selected archived documentation. FINDINGS: RIGHT BREAST: There is a mixture of fatty and fibroglandular tissue. No suspicious mass is seen. There is no pathologic acoustic shadowing. There is no axillary adenopathy.. There is no sonographic correlate or abnormality in the region of breast pain. MM/MM tomosynthesis diagnostic BI IMPRESSION: There are no findings suspicious for malignancy in either breast. Right breast shows no imaging abnormality associated with a palpable focus in the 4:00 region. Recommend clinical management. Otherwise, recommend resuming routine screening. OVERALL ASSESSMENT: Mammography: BI-RADS 1 - Negative Ultrasound: BI-RADS 1 - Negative RECOMMENDATION: 1. Patient should be managed based on the clinical impression. Decision to proceed with biopsy should be based on clinical grounds and degree of clinical concern. 2. Otherwise, routine annual screening mammography. Results were provided to the patient at time of visit by the technologist. This patient's information was entered into a reminder system with a target due date for their next mammogram.
== END 2022-12-03 14:13 | disposition home or self-care (01) ==
LOC: HO.MAMMO 14:12
PROVIDERS: PCP Internal Medicine; Visit Provider Internal Medicine
DX: N63.14 Unspecified lump in the right breast, lower inner quadrant (principal)
CPT/HCPCS: 76642; 77062; 77066

== ENCOUNTER → 2022-12-03 15:00 | Outpatient (BNV) | payer OTHER, SELFPAY | PROVIDERS: PCP Internal Medicine; Visit Provider Radiology Diagnostic Radiology | DX: R92.323 Mammographic fibroglandular density, bilateral breasts (principal); N63.14 Unspecified lump in the right breast, lower inner quadrant | CPT/HCPCS: 76642; 77062; 77066 ==

== ENCOUNTER 2022-12-11 13:07 | Outpatient (AMB) | payer OTHER, SELFPAY ==
[2022-12-11 13:08] VITALS: BP 102/60; PULSE 86; O2SAT 96; BMI 23.1
--- NOTE | 2022-12-11 13:08 | A.OFFVIS_ITS ---
Intake Vital Signs 12/11/22 13:08 Height 5 ft 8 in Weight 152 lb 1.903 oz BMI 23.1 BP 102/60 Blood Pressure Location Lt brachial Position Sitting Pulse 86 Pulse Source Doppler Pulse Oximetry (%) 96 Oxygen Delivery Method Room Air Intake Visit Reasons: COPD Allergies Sulfa (Sulfonamide Antibiotics) Allergy (Intermediate, Verified 12/11/22 13:10) swelling, itchiness HPI COPD HPI Details 62-year-old lady, nonsmoker, with underl yadira history of asthma referred for management of her pulmonary concerns. Patient states she gets intermittent wheezing that is suboptimally controlled on her current regimen of Flovent and albuterol MDI. She does complain of multiple environmental allergies. Patient is scheduled to see an alumni relations officer. She does not have pets in her house, though her daughter does have a dog in she gets worse allergy symptoms when visiting her. She denies exposure to industrial dusts. Patient's mother and father both have asthma. At the last office visit patient has been switched from Flovent to Symbicort with significantly improved symptom control. She also completed her immunologic testing. She denies any recent exacerbations. [facility] Medical History (Updated 11/13/22 @ 14:14 by Jose Guadalupe Amos MD) Pure hypercholesterolemia Hypovitaminosis D Moderate persistent asthma Surgical History History of tubal ligation Family History Father Asthma Heart attack Mother Heart attack Asthma Sister History of breast cancer Family/Other Ovarian cancer Maternal Uncle Prostate cancer Paternal Uncle Colon cancer Social History (Reviewed 11/13/22 @ 13:42 by Karol Mccarthy [facility]) Housing: Apartment Alcohol intake: never Patient Tobacco Use Status: Never used Tobacco e-Cigarette/Vaping Use: Never Used Second Hand Smoke Exposure: No service: No Current occupational status: disabled Cognitive needs: No Hearing needs: No Vision needs: Yes Female Reproductive History Menstrual Age of Menarche: 12 Review of Systems Const Denies daytime sleepiness, Denies excessive sweating, Denies fatigue, Denies fever(s), Denies lethargy, Denies malaise, Denies night sweats, Denies snoring and Denies weight loss Eyes Denies blurry vision and Denies itchy eyes ENT Denies nasal congestion, Denies post nasal drip, Denies sinus pain, Denies sinus pressure and Denies other ( Thrush) Card Denies chest pain, Denies pedal edema, Denies dyspnea, Denies orthopnea and Denies paroxysmal nocturnal dyspnea Resp Denies cough, Denies hemoptysis, Denies excessive phlegm production, Denies dyspnea, Denies snoring and Denies wheezing GI Denies abdominal pain and Denies heartburn Musc Denies myalgias, Denies arthralgias and Denies joint swelling Skin/Breast Denies rash Neuro Denies memory loss and Denies seizure-like activity Psych Denies abnormal sleep pattern, Denies anxiety and Denies memory loss Endo Denies excessive sweating, Denies fatigue and Denies heat intolerance Cesar/Lymph Denies easy bruising Aller/Immun Denies itchy eyes, Denies seasonal rhinorrhea and Denies wheezing Physical Exam Vital Signs: Last Vital Signs Pulse 86 12/11/22 13:08 BP 102/60 12/11/22 13:08 Pulse Ox 96 12/11/22 13:08 Oxygen Delivery Method Room Air 12/11/22 13:08 BMI result Body Mass Index 23.1 Const General: no acute distress and alert Nutritional Appearance: not obese Orientation/consciousness: Other orientation findings ( oriented) HEENT Head: Yes atraumatic Eyes General: appearance normal, both eyes and all related structures Sclerae: sclerae normal EOM: EOMs intact bilaterally Neck Neck: Yes supple Lymphatic: no lymphadenopathy noted Resp Effort & Inspection: normal respiratory effort and no use of accessory muscles Auscultation: clear to auscultation bilaterally Cardio Rate: regular rate Rhythm: regular rhythm Heart sounds: no gallops, no murmurs and no rubs Skin General skin exam: other ( warm) Extrem General: No clubbing, No cyanosis and No edema Assessment & Plan Assessment & Plan (1) Mild persistent asthma: Code(s): J45.30 - Mild persistent asthma, uncomplicated Plan: Now symptoms are well controlled on Symbicort and albuterol MDI. Continue current regimen. (2) Environmental allergies: Code(s): Z91.09 - Other allergy status, other than to drugs and biological substances Plan: Results for immunologic testing including IgE level, CBC with differential, and RAST panel reviewed. Patient does have underlying min allergic component and if her symptoms stop being controlled with inhaled corticosteroid/long-acting beta agonist, will consider immunologic therapy. Coding Level of Care Code Est Pt Level 4 (17505) Diagnoses Mild persistent asthma J45.30 Environmental allergies Z91.09
== END 2022-12-11 13:19 | disposition home or self-care (01) ==
PROVIDERS: PCP Internal Medicine; Visit Provider Internal Medicine Pulmonary Disease
DX: J45.30 Mild persistent asthma, uncomplicated (principal); Z91.09 Other allergy status, other than to drugs and biological substances
CPT/HCPCS: 99214

== ENCOUNTER → 2022-12-11 13:07 | Outpatient (BNVA) | payer OTHER, SELFPAY | PROVIDERS: PCP Internal Medicine; Visit Provider Internal Medicine Pulmonary Disease | DX: J45.30 Mild persistent asthma, uncomplicated (principal); Z91.09 Other allergy status, other than to drugs and biological substances | CPT/HCPCS: 99212 ==

== ENCOUNTER 2023-02-03 12:36 | Outpatient (REF) | payer OTHER, SELFPAY ==
[2023-02-04 12:43] LABS: BV Int Neg Control Negative (Negative); BV Int Pos Control Positive (Positive)
== END 2023-02-03 12:37 | disposition home or self-care (01) ==
LOC: HO.LAB 12:36
PROVIDERS: Visit Provider Advanced Practice Midwife
DX: Z01.419 Encounter for gynecological examination (general) (routine) without abnormal findings (principal); Z20.2 Contact with and (suspected) exposure to infections with a predominantly sexual mode of transmission
CPT/HCPCS: 87480; 87510; 87660; 99396

== ENCOUNTER 2023-02-03 12:36 | Outpatient (AMB) | payer OTHER, SELFPAY ==
--- NOTE | 2023-02-03 12:46 | MHC.OFFVIS ---
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 She is doing well with no concerns. Attempting to eat a healthy diet with calcium and vitamin D and stays active with exercise. Currently sexually active. Denies any vaginal dryness or irritation. STI testing offered; she accepts. Last pap smear; 01/2021. Last mammogram; 11/2022. Colonoscopy is UTD. Denies any family history of breast, ovarian or colon cancer. [facility] Medical History Pure hypercholesterolemia Hypovitaminosis D Moderate persistent asthma Surgical History History of tubal ligation Family History Father Asthma Heart attack Mother Heart attack Asthma Sister History of breast cancer Family/Other Ovarian cancer Maternal Uncle Prostate cancer Paternal Uncle Colon cancer Social History Housing: Apartment Alcohol intake: never Patient Tobacco Use Status: Never used Tobacco e-Cigarette/Vaping Use: Never Used Second Hand Smoke Exposure: No service: No Current occupational status: disabled Cognitive needs: No Hearing needs: No Vision needs: Yes Female Reproductive History Menstrual Age of Menarche: 12 Total pregnancies: 4 Full term: 2 Number of Living Children: 2 Ab spontaneous: 2 Date of last pap smear: 01/24/21 (neg pap and hpv) Date of Mammogram: 03/05/22 (Birad 2) Review of Systems Const All systems reviewed & are unremarkable except as noted in HPI and below Reports as per HPI Eyes Reports no additional complaints ENT Reports no additional complaints Card Reports no additional complaints Resp Reports no additional complaints GI Reports as per HPI and Reports no additional complaints Reports as per HPI Musc Reports no additional complaints Skin/Breast Reports as per HPI Neuro Reports no additional complaints Psych Reports no additional complaints Endo Reports no additional complaints Cesar/Lymph Reports no additional complaints Aller/Immun Reports no additional complaints Physical Exam Vital Signs: Last Vital Signs BP 100/64 02/03/23 12:47 BMI result Body Mass Index 23.1 Const General: cooperative, healthy appearing, no acute distress, well developed and alert Orientation/consciousness: patient oriented x3 HEENT Head: Yes normal to inspection Eyes General: appearance normal, both eyes and all related structures Neck Neck: Yes normal visual inspection Thyroid: Thyroid normal Chest Chest palpation & inspection: normal inspection of the chest and other (no puckering, dimpling, peau de orange, retraction, discharge, masses) Breast/axilla inspection: normal inspection of the breasts Breast/axilla palpation: normal palpation of the breasts Resp Effort & Inspection: normal respiratory effort GI Inspection: Yes normal to inspection Palpation (GI): Soft to palpation Rectal Exam - Female: deferred General: Yes bladder normal to palpation External Female Exam: normal external appearance and normal appearance of the urethra Speculum Exam - Vagina: normal appearance of the vagina, normal palpation and normal vaginal discharge Speculum Exam - Cervix: normal appearance of the cervix and normal palpation Bimanual exam- vagina & uterus: normal bimanual exam, normal palpation, uterine size normal, bladder normal to palpation, normal palpation and non-tender Bimanual Exam- Adnexa, other: no masses Skin General skin exam: no rashes or lesions noted Rashes: no rashes Neuro General: patient oriented x3 Cognition (Neuro): normal cognition Extrem General: Yes normal to inspection Psych Attitude: cooperative Thought process: Normal thought process present Assessment & Plan Assessment & Plan (1) Encounter for well woman exam with routine gynecological exam: Code(s): Z01.419 - Encounter for gynecological examination (general) (routine) without abnormal findings Plan Discussed: Current recommendations for pap smears per ASCCP guidelines. Breast awareness, periodic self breast exams and yearly mammogram. Maintain a healthy lifestyle, well balanced diet including Calcium 1,200 mg and Vitamin D 600 IU daily, and routine exercise. Use of condoms for STI if indicated. Contact the office with any postmenopausal bleeding. All of her questions and concerns were addressed to the best of my ability. RTO in 1 year for annual management analyst exam. This note is constructed using voice recognition software. While every effort has been made to ensure accuracy, investor relations associate errors may have been included. Orders: Orders HIV Ab/Ag Today Z20.2 - Contact with and (suspected) exposure to infections with a predominantly sexual mode of transmission Hepatitis B Core Antibody Today Z20.2 - Contact with and (suspected) exposure to infections with a predominantly sexual mode of transmission Bacterial Vaginosis Panel Today Z20.2 - Contact with and (suspected) exposure to infections with a predominantly sexual mode of transmission CT NG by PCR Today Z20.2 - Contact with and (suspected) exposure to infections with a predominantly sexual mode of transmission Hepatitis C Antibody Today Z20.2 - Contact with and (suspected) exposure to infections with a predominantly sexual mode of transmission Syphilis Screen Today Z20.2 - Contact with and (suspected) exposure to infections with a predominantly sexual mode of transmission Coding Level of Care Code Est Pt Prev Care 40-64y(00004) Diagnoses Encounter for well woman exam with routine gynecological exam Z01.419
[2023-02-03 12:47] VITALS: BP 100/64; BMI 23.1
== END 2023-02-03 13:27 | disposition home or self-care (01) ==
PROVIDERS: Visit Provider Advanced Practice Midwife
DX: Z01.419 Encounter for gynecological examination (general) (routine) without abnormal findings (principal)
CPT/HCPCS: 99396

== ENCOUNTER 2023-02-03 13:16 | Outpatient (REF) | payer OTHER, SELFPAY | END 2023-02-03 13:17 | disposition home or self-care (01) | LOC: HO.LNP 13:16 | PROVIDERS: Visit Provider Advanced Practice Midwife | DX: Z13.89 Encounter for screening for other disorder (principal) ==

== ENCOUNTER 2023-02-03 13:24 | Outpatient (REF) | payer OTHER, SELFPAY ==
[2023-02-03 16:19] LABS: CT PCR NOT DETECTED (Not Detect.); NG PCR NOT DETECTED (Not Detect.)
[2023-02-04 04:23] LABS: Syphilis Screen Nonreactive (Nonreactive)
[2023-02-04 04:41] LABS: HBc Num1 0.14 S/CO (0.00-0.79); HIV AB/AG Nonreactive (Nonreactive); HIV Num 1 0.06 S/CO (0.00-0.99); Hepatitis B Core Antibody Nonreactive (Nonreactive); ~HepC Num1 0.11 S/CO (0.00-0.79); ~Hepatitis C Antibody Nonreactive (Nonreactive)
== END 2023-02-03 13:25 | disposition home or self-care (01) ==
LOC: HO.LAB 13:24
PROVIDERS: PCP Internal Medicine; Visit Provider Advanced Practice Midwife
DX: Z20.2 Contact with and (suspected) exposure to infections with a predominantly sexual mode of transmission (principal)
CPT/HCPCS: 0353U; 86704; 86780; 86803; 87389

== ENCOUNTER 2023-02-19 14:40 | Outpatient (AMB) | payer OTHER, SELFPAY ==
[2023-02-19 14:41] VITALS: BP 108/70; PULSE 84; O2SAT 97; BMI 23.3
--- NOTE | 2023-02-19 14:41 | MHC.PC.OV ---
Vital Signs 02/19/23 14:41 Height 5 ft 8 in Weight 153 lb 0.8 oz BMI 23.3 BP 108/70 Blood Pressure Location Lt brachial Position Sitting Pulse 84 Pulse Source Pulse Oximeter Pulse Oximetry (%) 97 Oxygen Delivery Method Room Air Intake Visit Reasons: right ankle pain and swelling Intake Note: pt states right ankle pain and swelling [id number] Network Applications Specialist Required: No Allergies Sulfa (Sulfonamide Antibiotics) Allergy (Intermediate, Verified 02/19/23 14:45) swelling, itchiness Tobacco use date assessed: 02/19/23 HPI right ankle pain and swelling HPI Details 62-year-old female with a history of asthma hypercholesterolemia coming in for an acute problem. Patient states during her youth she had right ankle injury but this has been doing good did not ever have any workup. In the last month though have noted swelling of the right ankle with pain denies any fall or trauma and this has prompted for consultation. As for the asthma patient uses albuterol only once or twice a week and so has not been using any other inhaler. Discussed about the blood work having an elevated cholesterol and discussed about diet [facility] Medical History Pure hypercholesterolemia Hypovitaminosis D Moderate persistent asthma Surgical History History of tubal ligation Family History Father Asthma Heart attack Mother Heart attack Asthma Sister History of breast cancer Family/Other Ovarian cancer Maternal Uncle Prostate cancer Paternal Uncle Colon cancer Social History Housing: Apartment Alcohol intake: never Patient Tobacco Use Status: Never used Tobacco e-Cigarette/Vaping Use: Never Used Second Hand Smoke Exposure: No service: No Current occupational status: disabled Cognitive needs: No Hearing needs: No Vision needs: Yes Female Reproductive History Menstrual Age of Menarche: 12 Questionnaire PHQ-9 Over the last 2 weeks, how often have you been bothered by any of the following problems? 1. Little interest or pleasure in doing things: not at all 2. Feeling down, depressed, or hopeless: not at all 3. Trouble falling or staying asleep, or sleeping too much: not at all 4. Feeling tired or having little energy: not at all 5. Poor appetite or overeating: not at all 6. Feeling bad about yourself - or that you are a failure or have let yourself or your family down: not at all 7. Trouble concentrating on things, such as reading the newspaper or watching television: not at all 8. Moving or speaking so slowly that other people could have noticed. Or the opposite - being so fidgety or restless that you have been moving around a lot more than usual: not at all 9. Thoughts that you would be better off or of hurting yourself in some way: not at all Total score: 0 Depression Screening Interpretation: Positive Depression Screening Follow-up: Existing condition and Community Mental Health Worker F/U Depression Screening Done: Yes 74735 - PHQ-9 Billing: Yes Source: Developed by Drs. Narayan Nuñez, Thea Fisher, Radhames Young and colleagues, with an educational mark from [employer]. Thrive Questionnaire Date Thrive assessed: 03/17/22 AUDIT C Alcohol Use Questionnaire (AUDIT-C) 1. How often do you have a drink containing alcohol?: Never Total Score: 0 Score Reviewed/Action Taken: No UJSTUS-7 AMB Questionnaire JUSTUS-7 Date JUSTUS - 7 assessed: 02/19/23 Feeling nervous, anxious, or on edge: 1 = Several days Not being able to stop or control worryin = Not at all Worrying too much about different things: 0 = Not at all Trouble relaxin = Not at all Being so restless that it is hard to sit still: 0 = Not at all Becoming easily annoyed or irritable: 0 = Not at all Feeling afraid as if something awful might happen: 0 = Not at all Total JUSTUS-7 score (0-4 normal; 5-9 mild; 10-14 moderate; 15-21 severe): 1 Source: Developed by Drs. Narayan Nuñez, Thea Fisher, Radhames Young and colleagues, with an educational mark from [employer]. Physical exam (Primary Care) Vital Signs: Last Vital Signs Pulse 84 02/19/23 14:41 BP 108/70 02/19/23 14:41 Pulse Ox 97 02/19/23 14:41 Oxygen Delivery Method Room Air 02/19/23 14:41 BMI result Body Mass Index 23.3 Tobacco/Smoking Status: Tobacco use Status Tobacco use date assessed 02/19/23 02/19/23 14:47 Patient Tobacco Use Status Never used Tobacco 02/19/23 14:47 e-Cigarette/Vaping Use Never Used 02/19/23 14:47 PHQ-9: PHQ-9 Score PHQ-9: Total score 0 02/19/23 14:50 Depression Screening Interpretation: Positive Depression Screening Follow-up: Existing condition and Community Mental Health Worker F/U Thrive Assessment: Date of Thrive Assessment Date Thrive assessed 03/17/22 02/19/23 14:47 Immunizations pneumoc 20-terrell conj-dip cr(PF) 0.5 mL IM syringe Performing Provider: Rusty Chavez MD [facility] Administered by: DIEGO Davis on 02/19/23 15:16 Dose Route Admin Location Dispensed Lot Number Expiration Date NDC Wire Coater 0.5 mL IM Left Deltoid 0.5 mL [id number] 03/20/24 0333-7210-67 AGLOGIC/Dwllr VIS Given Date VIS Provided VIS Publication Date 02/19/23 Single Vaccine 21 Eligibility Eligibility Date Funding Source Not [facility] Eligible 02/19/23 Private Assessment and Plan Assessment & Plan (1) Mild persistent asthma: Code(s): J45.30 - Mild persistent asthma, uncomplicated Plan: controlled and uses albuterol once a week only-controlled (2) Ankle pain, right: Code(s): M25.571 - Pain in right ankle and joints of right foot Plan: xray to do , advised voltaren gel for now, if pain persist - ortho referral (3) Pure hypercholesterolemia: Code(s): E78.00 - Pure hypercholesterolemia, unspecified Plan: Avoid fried foods, chicken skin, eggs, butter margarine, pastries and meat. Be it pork or beef they have a lot of cholesterol LDL goal of less than 130 and triglyceride of less than 150 Orders: Orders Pneumococcal 20 Immunization Today Z23 - Encounter for immunization XR ankle RT 2V Today M25.571 - Pain in right ankle and joints of right foot Coding Level of Care Code Est Pt Level 4 (75315) Diagnoses Mild persistent asthma J45.30 Ankle pain, right M25.571 Pure hypercholesterolemia E78.00
== END 2023-02-19 15:18 | disposition home or self-care (01) ==
PROVIDERS: PCP Internal Medicine; Visit Provider Internal Medicine
DX: J45.30 Mild persistent asthma, uncomplicated (principal); M25.571 Pain in right ankle and joints of right foot; E78.00 Pure hypercholesterolemia, unspecified; Z23 Encounter for immunization
CPT/HCPCS: 90471; 90677; 99214

== ENCOUNTER 2023-02-19 15:25 | Outpatient (REF) | payer OTHER, SELFPAY ==
--- NOTE | ~2023-02-19 | XR_ITS ---
EXAMINATION: XR ANKLE, RIGHT CLINICAL INFORMATION: Right ankle pain COMPARISON: None available. TECHNIQUE: AP, lateral, and mortise views of the right ankle. FINDINGS: BONES: Bony structures are intact. Sharp dorsal and plantar calcaneal spurs are present. There is no focal bone destruction or periosteal reaction seen. JOINTS: Alignment of joints is normal. SOFT TISSUE: Soft tissue is normal. No radiopaque foreign body or abnormal air collection is seen. XR/XR ankle RT 2V IMPRESSION: 1. Sharp right Calcaneal spurs. 2. No fracture or dislocation could be seen in the right ankle.
== END 2023-02-19 15:26 | disposition home or self-care (01) ==
LOC: HO.XRAY 15:25
PROVIDERS: Visit Provider Internal Medicine
DX: M25.571 Pain in right ankle and joints of right foot (principal)
CPT/HCPCS: 73600

== ENCOUNTER 2023-06-18 15:45 | Outpatient (REF) | payer OTHER, SELFPAY ==
[2023-06-18 17:42] LABS: Appearance Urine Cloudy; Color Urine Yellow; Glucose Urine UA Negative (Negative); Leukocyte Esterase Urine Moderate (2+) (Negative); Nitrite Urine Negative (Negative); UMIC TRIGGER UACC YES; Urine Blood Negative (Negative); Urine Ketones Negative (Negative); Urine Protein Negative (Neg-Trace)
[2023-06-18 17:55] LABS: Bacteria Urine 1+ (None Seen); Hyaline Casts Urine 0-2 /LPF (0-2); RBC Urine 0-2 /HPF (0-2); WBC Urine 0-5 /HPF (0-5)
== END 2023-06-18 15:46 | disposition home or self-care (01) ==
LOC: HO.LAB 15:45
PROVIDERS: PCP Internal Medicine; Visit Provider Internal Medicine
DX: R39.9 Unspecified symptoms and signs involving the genitourinary system (principal)
CPT/HCPCS: 81001

== ENCOUNTER 2023-07-22 14:53 | Outpatient (AMB) | payer OTHER, SELFPAY ==
[2023-07-22 15:00] VITALS: BP 122/72; PULSE 70; O2SAT 97; BMI 23.3
--- NOTE | 2023-07-22 15:00 | A.OFFVIS_ITS ---
Vital Signs 07/22/23 15:00 Height 5 ft 8 in Weight 153 lb 3.54 oz BMI 23.3 BP 122/72 Blood Pressure Location Rt brachial Position Sitting Pulse 70 Pulse Source Doppler Pulse Oximetry (%) 97 Oxygen Delivery Method Room Air Intake Visit Reasons: COPD Allergies Sulfa (Sulfonamide Antibiotics) Allergy (Intermediate, Verified 07/22/23 15:05) swelling, itchiness HPI HPI COPD: Details: 62-year-old lady, nonsmoker, Now followed for underlying asthma and GERD. Patient states that her asthma symptoms are well controlled on Symbicort and albuterol MDI/ nebs. She does complain of worsening GERD symptoms. She denies any recent exacerbations of her underlying asthma. [facility] Medical History Pure hypercholesterolemia Hypovitaminosis D Moderate persistent asthma Surgical History History of tubal ligation Family History Father Asthma Heart attack Mother Heart attack Asthma Sister History of breast cancer Family/Other Ovarian cancer Maternal Uncle Prostate cancer Paternal Uncle Colon cancer Social History Housing: Apartment Alcohol intake: never Patient Tobacco Use Status: Never used Tobacco e-Cigarette/Vaping Use: Never Used Second Hand Smoke Exposure: No service: No Current occupational status: disabled Cognitive needs: No Hearing needs: No Vision needs: Yes Female Reproductive History Menstrual Age of Menarche: 12 Review of Systems Const Denies daytime sleepiness, Denies excessive sweating, Denies fatigue, Denies fever(s), Denies lethargy, Denies malaise, Denies night sweats, Denies snoring and Denies weight loss Eyes Denies blurry vision and Denies itchy eyes ENT Denies nasal congestion, Denies post nasal drip, Denies sinus pain, Denies sinus pressure and Denies other ( Thrush) Card Denies chest pain, Denies pedal edema, Denies dyspnea, Denies orthopnea and Denies paroxysmal nocturnal dyspnea Resp Denies cough, Denies hemoptysis, Denies excessive phlegm production, Denies dyspnea, Denies snoring and Denies wheezing GI Denies abdominal pain and Denies heartburn Musc Denies myalgias, Denies arthralgias and Denies joint swelling Skin/Breast Denies rash Neuro Denies memory loss and Denies seizure-like activity Psych Denies abnormal sleep pattern, Denies anxiety and Denies memory loss Endo Denies excessive sweating, Denies fatigue and Denies heat intolerance Cesar/Lymph Denies easy bruising Aller/Immun Denies itchy eyes, Denies seasonal rhinorrhea and Denies wheezing Physical Exam Vital Signs: Last Vital Signs Pulse 70 07/22/23 15:00 BP 122/72 07/22/23 15:00 Pulse Ox 97 07/22/23 15:00 Oxygen Delivery Method Room Air 07/22/23 15:00 BMI result Body Mass Index 23.3 Const General: no acute distress and alert Nutritional Appearance: not obese Orientation/consciousness: Other orientation findings ( oriented) HEENT Head: Yes atraumatic Eyes General: appearance normal, both eyes and all related structures Sclerae: sclerae normal EOM: EOMs intact bilaterally Neck Neck: Yes supple Lymphatic: no lymphadenopathy noted Resp Effort & Inspection: normal respiratory effort and no use of accessory muscles Auscultation: clear to auscultation bilaterally Cardio Rate: regular rate Rhythm: regular rhythm Heart sounds: no gallops, no murmurs and no rubs Skin General skin exam: other ( warm) Extrem General: No clubbing, No cyanosis and No edema Assessment & Plan Assessment & Plan (1) Moderate persistent asthma: Code(s): J45.40 - Moderate persistent asthma, uncomplicated Category: Medical Plan: Well controlled on current regimen of Symbicort and albuterol MDI. Continue current regimen. (2) GERD (gastroesophageal reflux disease): Code(s): K21.9 - Gastro-esophageal reflux disease without esophagitis Category: Medical Plan: now suboptimally controlled, will start on omeprazole 40 mg twice a day. Medications: New omeprazole 40 mg PO BID 60 caps 1RF Refilled budesonide-formoterol 160-4.5 mcg/actuation (Symbicort) 2 puffs inhalation BID 30 days 10.2 grams 6RF Coding Level of Care Code Est Pt Level 4 (12942) Diagnoses Moderate persistent asthma J45.40 GERD (gastroesophageal reflux disease) K21.9
== END 2023-07-22 15:15 | disposition home or self-care (01) ==
PROVIDERS: PCP Internal Medicine; Visit Provider Internal Medicine Pulmonary Disease
DX: J45.40 Moderate persistent asthma, uncomplicated (principal); K21.9 Gastro-esophageal reflux disease without esophagitis
CPT/HCPCS: 99214

== ENCOUNTER → 2023-07-22 14:53 | Outpatient (BNVA) | payer OTHER, SELFPAY | PROVIDERS: PCP Internal Medicine; Visit Provider Internal Medicine Pulmonary Disease | DX: J45.40 Moderate persistent asthma, uncomplicated (principal); K21.9 Gastro-esophageal reflux disease without esophagitis | CPT/HCPCS: 99212 ==

== ENCOUNTER 2024-03-07 16:43 | Outpatient (AMB) | payer OTHER, SELFPAY ==
--- NOTE | 2024-03-07 16:44 | A.OFFPC_ITS ---
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 Name: Rama Lockett MD Information Interpreted: non-clinical & clinical Accompanied by: Spouse Allergies Sulfa (Sulfonamide Antibiotics) Allergy (Intermediate, Verified 03/07/24 16:57) swelling, itchiness Medication List - Last Reconciled 03/07/24 by Rama Lockett MD albuterol sulfate 0.8333 mg PO Q6H amitriptyline 10 mg PO BEDTIME 90 days budesonide-formoterol 160-4.5 mcg/actuation (Symbicort) 2 puffs inhalation BID 30 days cholecalciferol (vitamin D3) 25 mcg PO DAILY 90 days clotrimazole 1% (Antifungal (clotrimazole)) 1 appl topical BID 2 weeks omeprazole 40 mg PO BID sumatriptan succinate 25 mg PO Q2-4H PRN 30 days Ventolin HFA 90 mcg/actuation (albuterol sulfate) 2 puffs inhalation Q6H PRN 30 days NS Tobacco use date assessed: 03/07/24 Fall risk assessment: No Falls in past year Last assessed Fall Risk: 03/07/24 Dental Screening Dental Screen Date: 03/07/24 Did you have a dental visit in the last 12 months?: No Did you have a dental problem in the last 6 months where you did not have access to dental care?: No Was dental information given to patient?: Patient has dentist HPI HPI Comments History of Present Illness Details The patient is a 63-year-old female presenting with musculoskeletal pain in the right foot and spine, migraine headaches, and gastrointestinal discomfort. She reports ongoing discomfort in her right foot, attributed to a possible bone spur affecting her ability to walk and perform daily activities. The discomfort has persisted for approximately a year, intensifying with prolonged walking. She describes spinal discomfort, possibly related to a longstanding presence of bumps accompanied by itching. Her migraine headaches, occurring primarily on the left side, are severe enough to affect her sleep. She experiences associated cheek numbness and discomfort that extends to the ear and molar region. Gastrointestinal symptoms have been troubling her for the last two weeks, with complaints of abdominal pain and a history of a gallbladder issue identified in a prior sonogram. Nausea occurs occasionally, and lower abdominal ache is noted, although diarrhea is absent. [facility] Medical History (Updated 03/07/24 @ 17:17 by Rama Lockett MD) Mild recurrent major depression Pure hypercholesterolemia Hypovitaminosis D Moderate persistent asthma Surgical History History of tubal ligation Family History Father Asthma Heart attack Mother Heart attack Asthma Sister History of breast cancer Family/Other Ovarian cancer Maternal Uncle Prostate cancer Paternal Uncle Colon cancer Social History Housing: Apartment Alcohol intake: never Patient Tobacco Use Status: Never used Tobacco e-Cigarette/Vaping Use: Never Used Second Hand Smoke Exposure: No service: No Current occupational status: disabled Cognitive needs: No Hearing needs: No Vision needs: Yes Female Reproductive History Menstrual Age of Menarche: 12 Questionnaire PHQ-9 Over the last 2 weeks, how often have you been bothered by any of the following problems? 1. Little interest or pleasure in doing things: not at all 2. Feeling down, depressed, or hopeless: not at all 3. Trouble falling or staying asleep, or sleeping too much: not at all 4. Feeling tired or having little energy: not at all 5. Poor appetite or overeating: not at all 6. Feeling bad about yourself - or that you are a failure or have let yourself or your family down: not at all 7. Trouble concentrating on things, such as reading the newspaper or watching television: not at all 8. Moving or speaking so slowly that other people could have noticed. Or the opposite - being so fidgety or restless that you have been moving around a lot more than usual: not at all 9. Thoughts that you would be better off or of hurting yourself in some way: not at all Total score: 0 Depression Screening Interpretation: Negative Depression Screening Done: Yes 06925 - PHQ-9 Billing: Yes Source: Developed by Drs. Narayan Nuñez, Thea Fisher, Radhames Young and colleagues, with an educational mark from [employer]. Thrive Questionnaire Date Thrive assessed: 03/07/24 I am a: Patient What is your living situation today?: I have a steady place to live Within the past 12 months, did the food you bought not last and you didn't have the money to get more?: Never true Within the past 12 months, did you worry whether your food would run out before you got money to buy more?: Never true Do you have trouble paying for medicines?: No Do you have trouble getting transportation to medical appointments?: No Do you have trouble paying your heating and electricity bill?: No Do you have trouble taking care of your child, family member or friend?: No Do you have trouble with day-to-day activities such as bathing, preparing meals, shopping, managing finances, etc.?: No Are you currently unemployed and looking for a job?: No Are you interested in more education?: No Please select the resources that you would like help with: None Currently or been in a relationship where the following occur: No concerns reported THRIVE Score: 0 AUDIT C Alcohol Use Questionnaire (AUDIT-C) 1. How often do you have a drink containing alcohol?: Never Total Score: 0 Score Reviewed/Action Taken: No JUSTUS-7 AMB Questionnaire JUSTUS-7 Date JUSTUS - 7 assessed: 03/07/24 Feeling nervous, anxious, or on edge: 0 = Not at all Not being able to stop or control worryin = Not at all Worrying too much about different things: 0 = Not at all Trouble relaxin = Not at all Being so restless that it is hard to sit still: 0 = Not at all Becoming easily annoyed or irritable: 0 = Not at all Feeling afraid as if something awful might happen: 0 = Not at all Total JUSTUS-7 score (0-4 normal; 5-9 mild; 10-14 moderate; 15-21 severe): 0 Source: Developed by Drs. Narayan Nuñez, Thea Fisher, Radhames Young and colleagues, with an educational mark from [employer]. JUSTUS-7 Assessment Billing JUSTUS-7 Assessment Tool: JUSTUS-7 Assessment 16930 Review of Systems Const All systems reviewed & are unremarkable except as noted in HPI and below ENT Reports neck pain Card Denies chest pain at rest, Denies chest pain with activity, Denies edema, Denies irregular heart rhythm, Denies claudication, Denies dyspnea, Denies dyspnea on exertion, Denies orthopnea, Denies paroxysmal nocturnal dyspnea and Denies slow heart rate Resp Denies cough, Denies dyspnea and Denies dyspnea on exertion GI Reports abdominal pain, Denies change in bowel habits, Denies excessive flatus, Denies nausea and Denies vomiting Denies urinary incontinence, Denies urinary hesitancy and Denies urinary urgency Musc Reports back pain, Denies atrophy, Denies deformity, Reports arthralgias, Denies limited range of motion and Reports neck pain Skin/Breast Denies bleeding lesions, Denies changing lesions, Reports lesions and Denies rash Physical exam (Primary Care) Vital Signs: Last Vital Signs BP 136/70 03/07/24 16:45 BMI result Body Mass Index 22.0 Tobacco/Smoking Status: Tobacco use Status Tobacco use date assessed 03/07/24 03/07/24 16:52 Patient Tobacco Use Status Never used Tobacco 03/07/24 16:52 e-Cigarette/Vaping Use Never Used 03/07/24 16:52 PHQ-9: PHQ-9 Score PHQ-9: Total score 0 03/07/24 17:01 Depression Screening Interpretation: Negative Thrive Assessment: Date of Thrive Assessment Date Thrive assessed 03/07/24 03/07/24 16:52 Currently or been in a relationship where the following occur: No concerns reported Resp Effort & Inspection: normal respiratory effort Auscultation: clear to auscultation bilaterally Cardio Jugular venous distension: no JVD Rate: regular rate Rhythm: regular rhythm Heart sounds: S1 normal heart sound present and S2 normal heart sound present GI Inspection: Yes normal to inspection Palpation (GI): Soft to palpation and nontender Auscultation: normal bowel sounds Skin Lesions: lesion noted Extrem General: Yes full ROM Immunizations Boostrix Tdap 2.5 Lf unit-8 mcg-5 Lf/0.5 mL intramuscular syringe Performing Provider: Rama Lockett MD [facility] Administered by: DIEGO Sainz on 03/07/24 17:08 Dose Route Admin Location Dispensed Lot Number Expiration Date NDC [place] Work[employer] 0.5 mL IM Left Deltoid 0.5 mL [id number] 05/04/26 [id number] [employer] VIS Given Date VIS Provided VIS Publication Date 03/07/24 Single Vaccine 20 Eligibility Eligibility Date Funding Source Not VFC Eligible 03/07/24 Private Coding Level of Care Code Est Pt Level 4 (59374) Complex EM visit Add On G2211 Diagnoses Skin lesion L98.9 GERD (gastroesophageal reflux disease) K21.9 Moderate persistent asthma J45.40 Ankle pain, right M25.571 Migraines G43.909 Additional Codes PHQ-9 - 20810 - PHQ-9 Billing: Yes ([id number]) JUSTUS-7 Assessment Billing - JUSTUS-7 Assessment Tool: JUSTUS-7 Assessment 24644 ([id number]) Time Spent (min) 23 Assessment & Plan Assessment & Plan (1) Skin lesion: Code(s): L98.9 - Disorder of the skin and subcutaneous tissue, unspecified Category: Medical (2) GERD (gastroesophageal reflux disease): Code(s): K21.9 - Gastro-esophageal reflux disease without esophagitis Category: Medical (3) Moderate persistent asthma: Code(s): J45.40 - Moderate persistent asthma, uncomplicated Category: Medical (4) Ankle pain, right: Code(s): M25.571 - Pain in right ankle and joints of right foot Category: Medical (5) Migraines: Code(s): G43.909 - Migraine, unspecified, not intractable, without status migrainosus Category: Medical Plan - Refer to podiatry for further evaluation and management of the right foot pain, likely due to a bone spur. - Recommend imaging of the spine to assess the longstanding bumps and discomfort. - Prescribe sumatriptan for the management of migraines, considering current migraine severity. - Evaluate gastrointestinal symptoms with pending lab work and consider follow- up imaging if necessary. - Continue current medications, including Symbicort and omeprazole, and vitamin D supplementation. Patient was informed and verbally consented to the use of an ambient scribe for clinic note documentation during this visit. During our discussion, I detailed the importance of evaluating the right foot pain and spinal discomfort thoroughly, including referral to podiatry and consideration of further imaging. We talked about managing migraine severity with the prescribed sumatriptan and maintaining the current regimen of Symbicort and omeprazole. I emphasized the necessity of further evaluation of gastrointestinal discomfort with additional possible diagnostics. We agreed that addressing these issues will improve her quality of life and discussed the importance of follow-up with any emerging symptoms. Orders: Orders XR ankle RT 2V Today M25.571 - Pain in right ankle and joints of right foot TDaP Immunization Today Z23 - Encounter for immunization Lipid Panel Today E78.5 - Hyperlipidemia, unspecified Vitamin D 25-OH Total Today E55.9 - Vitamin D deficiency, unspecified US abdomen complete Today R10.9 - Unspecified abdominal pain Complete Blood Count Auto Diff Today R10.9 - Unspecified abdominal pain Comprehensive [place]. Panel Fast Today R10.9 - Unspecified abdominal pain Referrals Podiatry Referral M25.571 - Pain in right ankle and joints of right foot Dermatology Referral L98.9 - Disorder of the skin and subcutaneous tissue, unspecified Medications: New clotrimazole-betamethasone 1-0.05 % 1 appl topical BID 2 weeks 15 grams 1RF Changed From omeprazole 40 mg PO BID 60 caps 1RF To omeprazole 40 mg PO DAILY 90 days 90 caps 1RF Refilled sumatriptan succinate do not exceed 8 doses per 24 hrs 25 mg PO Q2-4H 30 days PRN 9 tabs 2RF migraine headache Patient Instructions: - Follow up with a customs agent for foot pain evaluation. - Take sumatriptan as prescribed for migraines. - Continue with current medications: Symbicort, omeprazole, and vitamin D. - Monitor gastrointestinal symptoms and seek care if symptoms worsen. - Report any new or worsening symptoms promptly for further evaluation.
[2024-03-07 16:45] VITALS: BP 136/70; BMI 22.0
== END 2024-03-07 17:16 | disposition home or self-care (01) ==
PROVIDERS: PCP Internal Medicine; Visit Provider Internal Medicine
DX: L98.9 Disorder of the skin and subcutaneous tissue, unspecified (principal); K21.9 Gastro-esophageal reflux disease without esophagitis; J45.40 Moderate persistent asthma, uncomplicated; M25.571 Pain in right ankle and joints of right foot; G43.909 Migraine, unspecified, not intractable, without status migrainosus; Z23 Encounter for immunization

== ENCOUNTER → 2024-03-07 16:43 | Outpatient (BNVA) | payer OTHER, SELFPAY | PROVIDERS: PCP Internal Medicine; Visit Provider Internal Medicine | DX: Z23 Encounter for immunization (principal); L98.9 Disorder of the skin and subcutaneous tissue, unspecified; K21.9 Gastro-esophageal reflux disease without esophagitis; J45.40 Moderate persistent asthma, uncomplicated; M25.571 Pain in right ankle and joints of right foot; G43.909 Migraine, unspecified, not intractable, without status migrainosus | CPT/HCPCS: 90471; 90715; 96127; 99212 ==

== ENCOUNTER 2024-03-10 12:11 | Outpatient (REF) | payer OTHER, SELFPAY ==
--- NOTE | ~2024-03-10 | XR_ITS ---
CLINICAL HISTORY: M25.571 - Pain in right ankle and joints of right foot 4 view right ankle Comparison: None Findings: Bones intact. No dislocations. No significant loss of joint space, osteophytes, or erosions. There is a nonspecific plantar calcaneal spur. No ankle effusion. No radiopaque foreign body. IMPRESSION: 1. No acute findings. This document has been electronically signed by: Yahir Marvin MD on 03/12/2024 08:02:34
== END 2024-03-10 12:12 | disposition home or self-care (01) ==
LOC: HO.LAB 12:11
PROVIDERS: PCP Internal Medicine; Visit Provider Internal Medicine
DX: M25.571 Pain in right ankle and joints of right foot (principal)
CPT/HCPCS: 73600

== ENCOUNTER → 2024-03-10 12:17 | Outpatient (BNV) | payer OTHER, SELFPAY | PROVIDERS: PCP Internal Medicine; Visit Provider Specialist | DX: M25.571 Pain in right ankle and joints of right foot (principal) | CPT/HCPCS: 73610 ==

== ENCOUNTER 2024-04-01 10:40 | Outpatient (REF) | payer OTHER, SELFPAY ==
--- NOTE | ~2024-04-01 | US_ITS ---
CLINICAL HISTORY: R10.9 - Unspecified abdominal pain US abdomen complete Comparison: None Findings: The visualized pancreas is normal. The aorta and inferior vena cava are normal caliber. The appearance of the liver suggests fatty infiltration without focal lesion. There is no intrahepatic bile duct dilatation. The common duct is 3.0 mm in diameter. There is a 0.4 cm polyp versus sludge ball. The gallbladder is otherwise normal. There is no sonographic Bahena sign. The main portal vein is antegrade. The right kidney is 10.4 cm in length. The left kidney is 9.8 cm in length. The spleen is normal. No ascites. IMPRESSION: 1. Hepatic steatosis. 2. Possible incidental gallbladder polyp versus sludge ball. Consider a 6-12 month follow-up ultrasound to reassess. This document has been electronically signed by: Yahir Marvin MD on 04/02/2024 08:41:30
--- OUTSIDE RECORDS SUMMARY | 2024-04-01 11:29 | XMS_ITS | Clinical Summary ---
Author Organization [address] [place] [address] Address [address] [place] [address] Phone Care Team Providers Care Warehouse Receiver Name Role Phone Rama Lockett MD Primary Care Provider [phone] Allergies Active Allergy Reactions Criticality Noted Date Comments Sulfa (Sulfonamide Antibiotics) 08/14/2016 Other Reaction(s): Hives/Urticaria Medications cholecalciferol (VITAMIN D-3) 50 mcg (2,000 unit) capsule Take by mouth daily. Active Social History Tobacco Use Types Packs/Day Years Used Date Smoking Tobacco: Never Assessed Comments Unknown Sex and Gender Information Value Date Recorded Sex Assigned at Not on file Legal Sex Female 2:16 AM EST Gender Identity Not on file Sexual Orientation Not on file Plan of Treatment Upcoming Encounters Date Type Department Care Team (Late st Contact Info) Description 05/18/2024 1:15 PM EDT Office Visit Orthopedic Surgery - [place] [address] [id number] Hernán [place], KELLY [address] [address] Health Maintenance Due Date Last Done Comments Breast Cancer Screening 1960 DTaP,Tdap,and Td Vaccines (1 - Tdap) 11/06/1978 Pneumococcal Vaccine: 50+ Years (1 of 1 - PCV) 11/06/2009 Zoster Vaccines (1 of 2) 11/06/2009 Hepatitis B Vaccines (3 of 3 - 19+ 3-dose series) 02/18/2017 10/21/2016, 08/18/2016 Cervical Cancer Screening: P ap Smear 03/30/2017 03/30/2014, 03/30/2014 COVID-19 Vaccine ( - 2023-2 5 season) 2023 Influenza Vaccine (#1) 2023 Colorectal Cancer Screening: Colonoscopy 03/30/2024 Depression Screening 03/30/2024 Social Influencers of Health Screening 03/30/2024 RSV Immunization Patients 60 + Years Old (1 - 1-dose 75+ series) 11/06/2034 HIV Screening Completed 08/14/2016 Hepatitis C Screening Completed 08/14/2016 HIB Vaccines Aged Out No longer eligi ble based on patient's age to complete this topic HPV Vaccines Aged Out No longer eligi ble based on patient's age to complete this topic Hepatitis A Vaccines Aged Out No long er eligible based on patient's age to complete this topic IPV Vaccines Aged Out No longer eligi ble based on patient's age to complete this topic MMR Vaccines Aged Out No longer eligi ble based on patient's age to complete this topic Meningococcal ACWY Vaccine Aged Out N o longer eligible based on patient's age to complete this topic Meningococcal B Vacine Aged Out No lo nger eligible based on patient's age to complete this topic Pneumococcal Vaccine: Pediatrics (0 to 5 Years) and At-Risk Patients (6 to 64 Years) Aged Out No longer eligible b ased on patient's age to complete this topic RSV Immunization Patients Under 20 months Aged Out No longer eligible b ased on patient's age to complete this topic Varicella Vaccines Aged Out No longer eligible based on patient's age to complete this topic Procedures Procedure Name Priority Date/Time Associated Diagnosis Comments HEPATITIS C SCREENING Routine 08/14/2016 HIV SCREENING Routine 08/14/2016 HPV Routine 03/30/2014 from Last 3 Months or Most Recently Relevant to Health Maintenance Results * HIV Screening (08/14/2016) HIV Screening abstracted us Historical Provider HEALTH MAINTENANCE Final Result * Hepatitis C Screening (08/14/2016) Hepatitis C Screening abstracted us Historical Provider HEALTH MAINTENANCE Final Result * Cervical Cancer Screening: HPV (03/30/2014) Cervical Cancer Screening: HPV no interpreta tion,abstr acted us Historical Provider HEALTH MAINTENANCE Final Result from Last 3 Months or Most Recently Relevant to Health Maintenance Insurance [facility] [employer] Care Teams Warehouse Receiver Relationship Specialty Start Date End Date Rama Lockett MD [address] [facility] , [address] [facility]: [facility] [place], [place] PCP - General Internal Medicine 08/12/16
== END 2024-04-01 10:41 | disposition home or self-care (01) ==
LOC: HO.US 10:40
PROVIDERS: PCP Internal Medicine; Visit Provider Internal Medicine
DX: R10.9 Unspecified abdominal pain (principal)
CPT/HCPCS: 76700

== ENCOUNTER → 2024-04-01 10:42 | Outpatient (BNV) | payer OTHER, SELFPAY | PROVIDERS: PCP Internal Medicine; Visit Provider Specialist | DX: K76.0 Fatty (change of) liver, not elsewhere classified (principal) | CPT/HCPCS: 76700 ==

== ENCOUNTER 2024-04-12 09:51 | Outpatient (AMB) | payer OTHER, SELFPAY ==
--- NOTE | 2024-04-12 09:53 | MHC.OFFVIS ---
Vital Signs 04/12/24 10:03 Height 5 ft 8 in Weight 145 lb BMI 22.0 BP 126/76 Blood Pressure Location Rt brachial Position Sitting Pulse 80 Intake Visit Reasons: abdominal pain, gallbladder Intake Note: Patient referred by pcp Dr. Bennie Lockett for abdominal pain gallbladder. Patient c/o: abdominal pain that comes and goes. Pain started 1m ago. US Abd: 04-01-2024 Transportation Maintenance Supervisor Required: No Accompanied by: Wilmer Bush Allergies Sulfa (Sulfonamide Antibiotics) Allergy (Intermediate, Verified 04/12/24 09:59) swelling, itchiness HPI Comments Details: Patient presents with a significant other. She has had several bouts of epigastric/right upper quadrant pain. Because of persistence of the symptoms, she went on to have an ultrasound which demonstrates cholelithiasis/sludge. She presents here further evaluation. Patient was states at this point, all foods tend to bring on her symptoms. She has never been jaundiced before. She otherwise has regular bowel habits. Chart was reviewed and patient evaluated. Past medical history most noteworthy for asthma. [facility] Medical History Mild recurrent major depression Pure hypercholesterolemia Hypovitaminosis D Moderate persistent asthma Surgical History History of tubal ligation Family History Father Asthma Heart attack Mother Heart attack Asthma Sister History of breast cancer Family/Other Ovarian cancer Maternal Uncle Prostate cancer Paternal Uncle Colon cancer Social History Housing: Apartment Alcohol intake: never Patient Tobacco Use Status: Never used Tobacco e-Cigarette/Vaping Use: Never Used Second Hand Smoke Exposure: No service: No Current occupational status: disabled Cognitive needs: No Hearing needs: No Vision needs: Yes Female Reproductive History Menstrual Age of Menarche: 12 Physical Exam Vital Signs: Last Vital Signs Pulse 80 04/12/24 10:03 BP 126/76 04/12/24 10:03 BMI result Body Mass Index 22.0 Eyes Other: Anicteric Chest Other: Chest breath sounds bilaterally, HS 1 in 2 GI Other: Abdomen is soft, benign Assessment & Plan Assessment & Plan (1) Recurrent biliary colic: Code(s): K80.50 - Calculus of bile duct without cholangitis or cholecystitis without obstruction Category: Surgical Plan Risks, benefits, and alternatives of laparoscopic possible open cholecystectomy reviewed with the patient included but not limited to bleeding, infection, recurrence of symptoms, numbness, pain, scarring, bowel or bile duct injury or leak and the patient wishes to proceed. All questions answered. Arrangements were made for this on a day which is convenient for her. Coding Level of Care Code New Pt Level 5 (42384) Diagnoses Recurrent biliary colic K80.50
[2024-04-12 10:03] VITALS: BP 126/76; PULSE 80; BMI 22.0
--- OUTSIDE RECORDS SUMMARY | 2024-04-12 11:14 | XMS_ITS | Clinical Summary ---
Author Organization [address] [place] [address] Address [address] [place] [address] Phone Care Team Providers Care Brake Repair Mechanic Name Role Phone Rama Lockett MD Primary Care Provider [phone] Allergies Active Allergy Reactions Criticality Noted Date [...] PM EDT Office Visit Orthopedic Surgery - [place] [address] [phone] Hernán Dover, KELLY [address] [address] Health Maintenance Due Date Last Done Comments [...] Most Recently Relevant to Health Maintenance Insurance [facility] [employer] PLAN Care Teams Brake Repair Mechanic Relationship Specialty Start Date End Date Rama Lockett MD 2 [facility] , [address] [facility] Physician Associ D/B/A: [facility] [place], [place] PCP - General Internal Medicine 08/12/16
== END 2024-04-12 10:06 | disposition home or self-care (01) ==
PROVIDERS: PCP Internal Medicine; Visit Provider Surgery
DX: K80.50 Calculus of bile duct without cholangitis or cholecystitis without obstruction (principal)
CPT/HCPCS: 99204

== ENCOUNTER → 2024-04-12 09:51 | Outpatient (BNVA) | payer OTHER, SELFPAY | PROVIDERS: PCP Internal Medicine; Visit Provider Surgery | DX: K80.50 Calculus of bile duct without cholangitis or cholecystitis without obstruction (principal) | CPT/HCPCS: 99202 ==

== ENCOUNTER 2024-05-02 17:18 | Outpatient (AMB) | payer OTHER, SELFPAY ==
--- NOTE | 2024-05-02 17:22 | A.OFFPC_ITS ---
Vital Signs 05/02/24 17:24 Height 5 ft 8 in Weight 146 lb BMI 22.2 BP 118/70 Blood Pressure Location Lt brachial Position Sitting Intake Visit Reasons: Annual Exam Intake Note: Patient here for a physical exam Heavy Equipment Sales Associate Required: Yes Heavy Equipment Sales Associate Language: Shift Engineer Name: Rama Lockett MD Information Interpreted: non-clinical & clinical Accompanied by: Self / Same As Patient Allergies Sulfa (Sulfonamide Antibiotics) Allergy (Intermediate, Verified 05/02/24 17:34) swelling, itchiness Medication List - Last Reconciled 05/02/24 by Rama Lockett MD albuterol sulfate 0.8333 mg PO Q6H amitriptyline 10 mg PO BEDTIME 90 days budesonide-formoterol 160-4.5 mcg/actuation (Symbicort) 2 puffs inhalation BID 30 days cholecalciferol (vitamin D3) 25 mcg PO DAILY 90 days clotrimazole 1% (Antifungal (clotrimazole)) 1 appl topical BID 2 weeks clotrimazole-betamethasone 1-0.05 % 1 appl topical BID 2 weeks sumatriptan succinate 25 mg PO Q2-4H PRN 30 days Ventolin HFA 90 mcg/actuation (albuterol sulfate) 2 puffs inhalation Q6H PRN 30 days NS Tobacco use date assessed: 03/07/24 Fall risk assessment: No Falls in past year Last assessed Fall Risk: 05/02/24 Dental Screening Dental Screen Date: 05/02/24 Did you have a dental visit in the last 12 months?: Yes Did you have a dental problem in the last 6 months where you did not have access to dental care?: No Was dental information given to patient?: Patient has dentist HPI HPI Comments 2 History of Present Illness Details The patient is a 63-year-old female presenting for an annual physical examination and review of ongoing medical issues, particularly concerning the upcoming cholecystectomy planned for cholelithiasis. She reports chronic pain in the left leg and abdominal region associated with gallbladder disease, for which she has been advised to reduce dietary fat following her diagnosis and scheduled surgery. Her past medical history includes migraines, which are managed with sumatriptan, and allergy to sulfa drugs. Moderate depression scores and mild anxiety are noted without current psychiatric treatment due to the patient's preference. A family history indicates the presence of asthma and heart disease in both parents and breast cancer in a sister. She has undergone relevant screenings, including a prior Cologuard test in November 2021, with adequate follow-up screening plans arranged. - Mammography screening ordered - Bone density screening (DEXA scan) rec ommended every two years - Colon cancer screening was last comple karl with Cologuard in November 2021; next screening due in 2024 - Upcoming gallbladder removal [facility] Medical History Mild recurrent major depression Pure hypercholesterolemia Hypovitaminosis D Moderate persistent asthma Surgical History History of tubal ligation Family History Father Asthma Heart attack Mother Heart attack Asthma Sister History of breast cancer Family/Other Ovarian cancer Maternal Uncle Prostate cancer Paternal Uncle Colon cancer Social History Housing: Apartment Alcohol intake: never Patient Tobacco Use Status: Never used Tobacco e-Cigarette/Vaping Use: Never Used Second Hand Smoke Exposure: No service: No Current occupational status: disabled Cognitive needs: No Hearing needs: No Vision needs: Yes Female Reproductive History Menstrual Age of Menarche: 12 Questionnaire PHQ-9 Over the last 2 weeks, how often have you been bothered by any of the following problems? 1. Little interest or pleasure in doing things: several days 2. Feeling down, depressed, or hopeless: several days 3. Trouble falling or staying asleep, or sleeping too much: nearly every day 4. Feeling tired or having little energy: nearly every day 5. Poor appetite or overeating: several days 6. Feeling bad about yourself - or that you are a failure or have let yourself or your family down: several days 7. Trouble concentrating on things, such as reading the newspaper or watching television: several days 8. Moving or speaking so slowly that other people could have noticed. Or the opposite - being so fidgety or restless that you have been moving around a lot more than usual: not at all 9. Thoughts that you would be better off or of hurting yourself in some way: not at all Total score: 11 Depression Screening Interpretation: Positive Depression Screening Follow-up: Existing condition, Follow-up Visit Requested and Declines treatment Depression Screening Done: Yes 63163 - PHQ-9 Billing: Yes Source: Developed by Drs. Narayan Nuñez, Thea Fisher, Radhames Young and colleagues, with an educational mark from [employer] Thrive Questionnaire Date Thrive assessed: 03/07/24 I am a: Patient What is your living situation today?: I have a steady place to live Within the past 12 months, did the food you bought not last and you didn't have the money to get more?: Never true Within the past 12 months, did you worry whether your food would run out before you got money to buy more?: Never true Do you have trouble paying for medicines?: No Do you have trouble getting transportation to medical appointments?: No Do you have trouble paying your heating and electricity bill?: No Do you have trouble taking care of your child, family member or friend?: No Do you have trouble with day-to-day activities such as bathing, preparing meals, shopping, managing finances, etc.?: No Are you currently unemployed and looking for a job?: No Are you interested in more education?: No Please select the resources that you would like help with: None Currently or been in a relationship where the following occur: No concerns reported THRIVE Score: 0 AUDIT C Alcohol Use Questionnaire (AUDIT-C) 1. How often do you have a drink containing alcohol?: Never Total Score: 0 Score Reviewed/Action Taken: No JUSTUS-7 AMB Questionnaire JUSTUS-7 Date JUSTUS - 7 assessed: 03/07/24 Feeling nervous, anxious, or on edge: 1 = Several days Not being able to stop or control worryin = Nearly every day Worrying too much about different things: 3 = Nearly every day Trouble relaxin = Nearly every day Being so restless that it is hard to sit still: 3 = Nearly every day Becoming easily annoyed or irritable: 3 = Nearly every day Feeling afraid as if something awful might happen: 3 = Nearly every day Total JUSTUS-7 score (0-4 normal; 5-9 mild; 10-14 moderate; 15-21 severe): 19 Source: Developed by Drs. Narayan Nuñez, Thea Fisher, Radhames Young and colleagues, with an educational mark from [employer] JUSTUS-7 Assessment Billing JUSTUS-7 Assessment Tool: JUSTUS-7 Assessment 30494 Review of Systems Const All systems reviewed & are unremarkable except as noted in HPI and below Card Denies chest pain at rest, Denies chest pain with activity, Denies edema, Denies irregular heart rhythm, Denies claudication, Denies dyspnea, Denies dyspnea on exertion, Denies orthopnea, Denies paroxysmal nocturnal dyspnea and Denies slow heart rate Resp Denies cough, Denies dyspnea and Denies dyspnea on exertion GI Denies abdominal pain, Denies change in bowel habits, Denies excessive flatus, Denies nausea and Denies vomiting Physical exam (Primary Care) Vital Signs: Last Vital Signs BP 118/70 05/02/24 17:24 BMI result Body Mass Index 22.2 Tobacco/Smoking Status: Tobacco use Status Tobacco use date assessed 03/07/24 05/02/24 17:29 Patient Tobacco Use Status Never used Tobacco 05/02/24 17:29 e-Cigarette/Vaping Use Never Used 05/02/24 17:29 PHQ-9: PHQ-9 Score PHQ-9: Total score 11 05/02/24 17:39 Depression Screening Interpretation: Positive Depression Screening Follow-up: Existing condition, Follow-up Visit Requested and Declines treatment Thrive Assessment: Date of Thrive Assessment Date Thrive assessed 03/07/24 05/02/24 17:29 Currently or been in a relationship where the following occur: No concerns reported [facility] Head: Yes normal to inspection, Yes normocephalic and Yes atraumatic Ears: external ears normal Eyes General: appearance normal, both eyes and all related structures Eyelids: Yes eyelids normal Conjunctivae: conjunctivae normal Neck Neck: Yes normal visual inspection and Yes supple Resp Effort & Inspection: normal respiratory effort Auscultation: clear to auscultation bilaterally Cardio Jugular venous distension: no JVD Rate: regular rate Rhythm: regular rhythm Heart sounds: S1 normal heart sound present and S2 normal heart sound present GI Inspection: Yes normal to inspection Palpation (GI): Soft to palpation and nontender Auscultation: normal bowel sounds Skin General skin exam: no rashes or lesions noted Neuro General: no focal motor deficits Extrem General: Yes full ROM Psych Appearance: grossly normal Coding Level of Care Code Est Pt Prev Care 40-64y([address]062) Diagnoses Encounter for physical examination Z00.00 Additional Codes JUSTUS-7 Assessment Billing - JUSTUS-7 Assessment Tool: JUSTUS-7 Assessment 52991 ([id number]) PHQ-9 - 87105 - PHQ-9 Billing: Yes ([id number]) Time Spent (min) 31 Assessment & Plan Assessment & Plan (1) Encounter for physical examination: Code(s): Z00.00 - Encounter for general adult medical examination without abnormal findings Category: Medical Plan Scheduled surgery for cholelithiasis will be conducted progressively, with dietary adjustments recommended to mitigate pain until the procedure. Osteoporosis screening is maintained with a DEXA scan every two years. The patient's depression and anxiety management align with her current preferences against medication or therapy, yet require ongoing observation. Coordination of care with pulmonology to evaluate respiratory symptoms is advised, ensuring a holistic approach to musculoskeletal complaints. Routine follow-ups for preven tive screenings and mammography are established, with colonoscopy planned post- 2024. Patient was informed and verbally consented to the use of an ambient scribe for clinic note documentation during this visit. I discussed with the patient the need for surgery for gallbladder removal due to persistent abdominal pain and the role of dietary fat in exacerbating her symptoms. I reviewed the options for managing her depression and anxiety, respecting her choice against pharmacological treatment, and explained the importance of monitoring symptoms periodically. I highlighted the significance of continuing her scheduled screenings and consultations with a construction director, emphasizing preventive care and maintenance of her current regiment of medications. We agreed on the current plan and acknowledged areas requiring further assessment. Orders: Orders XR DEXA axial skeleton Today Z78.0 - Asymptomatic menopausal state Vitamin D 25-OH Total Today E55.9 - Vitamin D deficiency, unspecified Comprehensive Tiro. Panel Fast Today R10.9 - Unspecified abdominal pain Complete Blood Count Auto Diff Today R10.9 - Unspecified abdominal pain Lipid Panel Today E78.5 - Hyperlipidemia, unspecified, Z00.00 - Encounter for general adult medical examination without abnormal findings MM tomosynthesis screening BI Today Z12.31 - Encounter for screening mammogram for malignant neoplasm of breast Patient Instructions: - Follow dietary guidelines to reduce fat intake to manage gallbladder symptoms before surgery - Continue current medications for migraines and asthma management - Attend all scheduled appointments, including with pulmonology - Prioritize DEXA scan every two years for osteoporosis monitoring - Maintain regular cancer screening schedule; next Cologuard test in 2024 - Monitor symptoms of fatigue and leg pain, and report any significant changes - Consider emotional well-being and follow up further if depressive symptoms increase
[2024-05-02 17:24] VITALS: BP 118/70; BMI 22.2
--- OUTSIDE RECORDS SUMMARY | 2024-05-02 18:40 | XMS_ITS | Clinical Summary ---
Author Organization [address] [place] [address] Address [address] [place] [address] Phone Care Team Providers Care Granite Polisher Machine Name Role Phone Rama Lockett MD Primary Care Provider [phone] Allergies Active Allergy Reactions Criticality Noted Date [...] PM EDT Office Visit Orthopedic Surgery - [place] [address] [phone] Hernán Dover, KELLY [address] [address] Health Maintenance Due Date Last Done Comments [...] Most Recently Relevant to Health Maintenance Insurance [facility] [employer] PLAN Care Teams Granite Polisher Machine Relationship Specialty Start Date End Date Rama Lockett MD 2 [facility] , [address] [facility] Physician Associ D/B/A: [facility] [place], [place] PCP - General Internal Medicine 08/12/16
== END 2024-05-02 17:51 | disposition home or self-care (01) ==
LOC: HO.HMCH 17:18
PROVIDERS: PCP Internal Medicine; Visit Provider Internal Medicine
DX: Z00.00 Encounter for general adult medical examination without abnormal findings (principal)

== ENCOUNTER → 2024-05-02 17:18 | Outpatient (BNVA) | payer OTHER, SELFPAY | PROVIDERS: PCP Internal Medicine; Visit Provider Internal Medicine | DX: Z00.00 Encounter for general adult medical examination without abnormal findings (principal) | CPT/HCPCS: 96127; 99396 ==

== ENCOUNTER 2024-05-04 10:28 | Outpatient (REF) | payer OTHER, SELFPAY ==
[2024-05-04 11:09] LABS: MANUAL DIFF FLAG NO
[2024-05-04 11:43] LABS: Basophils Percent Auto 0.4 % (0-2); Eosinophils Percent Auto 0.3 % (0-4); Hematocrit 39.5 % (37.0-47.0); Imm Gran Abs Auto 0.01 X10*3/uL (0.00-0.03); Imm Gran Pct Auto 0.1 % (0.0-0.4); Lymphocytes Absolute Auto 2.6 X10*3/uL (1.2-4.9); Lymphocytes Percent Auto 37.3 % (20-40); Mean Corpuscular HGB Conc 32.9 g/dl (31.0-35.0); Mean Corpuscular Hemoglobin 30.7 pg (27.0-33.0); Mean Corpuscular Volume 93.4 fL (80.0-98.0); Mean Platelet Volume 11.8 fL (9.4-12.3); Monocytes Absolute Auto 0.5 X10*3/uL (0.1-1.2); Monocytes Percent Auto 7.1 % (2-11); Neutrophils Absolute Auto 3.9 x10*3/uL (2.0-8.3); Neutrophils Percent Auto 54.8 % (45-73); Platelet Count 254 X10*3/uL (160-400); Red Blood Count 4.23 X10*6/uL (4.20-5.50); White Blood Count 7.1 X10*3/uL (4.8-10.8)
[2024-05-04 12:21] LABS: Alanine Aminotransferase 14 U/L (0-31); Albumin Level 3.8 g/dL (3.5-5.0); Alkaline Phosphatase 75 U/L (39-117); Anion Gap 7 (12-20); Aspartate Amino Transferase 19 U/L (5-31); Bilirubin Total 0.6 mg/dL (0.0-1.0); Blood Urea Nitrogen 17 mg/dL (9-16); Calcium 9.1 mg/dL (8.4-10.2); Carbon Dioxide 27 mmol/L (22-29); Chloride 110 mmol/L (96-108); Cholesterol 197 mg/dL (<200); Estimated Glomerular Filt Rate > 60; Glucose Fasting 90 mg/dL (60-99); HDL Cholesterol 48 mg/dL (>40); LDL Cholesterol Calculated 129 mg/dL (<100); Sodium 140 mmol/L (135-145); Total Protein 7.4 g/dL (6.5-8.0); Triglycerides 102 mg/dL (<150)
== END 2024-05-04 10:29 | disposition home or self-care (01) ==
LOC: HO.LAB 10:28
PROVIDERS: PCP Internal Medicine; Visit Provider Internal Medicine
DX: Z01.811 Encounter for preprocedural respiratory examination (principal); Z91.09 Other allergy status, other than to drugs and biological substances; J45.40 Moderate persistent asthma, uncomplicated; E55.9 Vitamin D deficiency, unspecified; R10.9 Unspecified abdominal pain; E78.5 Hyperlipidemia, unspecified
CPT/HCPCS: 36415; 80053; 80061; 82306; 85025; 99212

== ENCOUNTER 2024-05-04 10:28 | Outpatient (AMB) | payer OTHER, SELFPAY ==
--- NOTE | 2024-05-04 10:40 | A.OFFVIS_ITS ---
Vital Signs 05/04/24 10:42 Height 5 ft 8 in Weight 145 lb BMI 22.0 BP 108/70 Blood Pressure Location Rt brachial Position Sitting Pulse 70 Pulse Source Doppler Pulse Oximetry (%) 98 Oxygen Delivery Method Room Air Intake Visit Reasons: Pre-op cholecystectomy Allergies Sulfa (Sulfonamide Antibiotics) Allergy (Intermediate, Verified 05/04/24 10:44) swelling, itchiness HPI HPI Pre-op cholecystectomy: Details: 63-year-old lady, nonsmoker, Now followed for underlying asthma and GERD. Patient states that her asthma symptoms continue to be well controlled on Symbicort and albuterol MDI/ nebs. She denies any recent exacerbations of her underlying asthma. She does complain of worsening allergic rhinitis. [facility] Medical History Mild recurrent major depression Pure hypercholesterolemia Hypovitaminosis D Moderate persistent asthma Surgical History History of tubal ligation Family History Father Asthma Heart attack Mother Heart attack Asthma Sister History of breast cancer Family/Other Ovarian cancer Maternal Uncle Prostate cancer Paternal Uncle Colon cancer Social History Housing: Apartment Alcohol intake: never Patient Tobacco Use Status: Never used Tobacco e-Cigarette/Vaping Use: Never Used Second Hand Smoke Exposure: No service: No Current occupational status: disabled Cognitive needs: No Hearing needs: No Vision needs: Yes Female Reproductive History Menstrual Age of Menarche: 12 Review of Systems Const Denies daytime sleepiness, Denies excessive sweating, Denies fatigue, Denies fever(s), Denies lethargy, Denies malaise, Denies night sweats, Denies snoring and Denies weight loss Eyes Denies blurry vision and Denies itchy eyes ENT Reports nasal congestion, Reports post nasal drip, Denies sinus pain, Denies sin us pressure and Denies other ( Thrush) Card Denies chest pain, Denies pedal edema, Denies dyspnea, Denies orthopnea and Denies paroxysmal nocturnal dyspnea Resp Denies cough, Denies hemoptysis, Denies excessive phlegm production, Denies dyspnea, Denies snoring and Denies wheezing GI Denies abdominal pain and Denies heartburn Musc Denies myalgias, Denies arthralgias and Denies joint swelling Skin/Breast Denies rash Neuro Denies memory loss and Denies seizure-like activity Psych Denies abnormal sleep pattern, Denies anxiety and Denies memory loss Endo Denies excessive sweating, Denies fatigue and Denies heat intolerance Cesar/Lymph Denies easy bruising Aller/Immun Denies itchy eyes, Denies seasonal rhinorrhea and Denies wheezing Physical Exam Vital Signs: Last Vital Signs Pulse 70 05/04/24 10:42 BP 108/70 05/04/24 10:42 Pulse Ox 98 05/04/24 10:42 Oxygen Delivery Method Room Air 05/04/24 10:42 BMI result Body Mass Index 22.0 Const General: no acute distress and alert Nutritional Appearance: not obese Orientation/consciousness: Other orientation findings ( oriented) HEENT Head: Yes atraumatic Eyes General: appearance normal, both eyes and all related structures Sclerae: sclerae normal EOM: EOMs intact bilaterally Neck Neck: Yes supple Lymphatic: no lymphadenopathy noted Resp Effort & Inspection: normal respiratory effort and no use of accessory muscles Auscultation: clear to auscultation bilaterally Cardio Rate: regular rate Rhythm: regular rhythm Heart sounds: no gallops, no murmurs and no rubs Skin General skin exam: other ( warm) Extrem General: No clubbing, No cyanosis and No edema Assessment & Plan Assessment & Plan (1) Moderate persistent asthma: Code(s): J45.40 - Moderate persistent asthma, uncomplicated Category: Medical Plan: Well controlled on current regimen of Symbicort and albuterol MDI/nebs. Continue current regimen. (2) Environmental allergies: Code(s): Z91.09 - Other allergy status, other than to drugs and biological substances Category: Medical Plan: Now with worsening allergic rhinitis, will start on empiric nasal ipratropium. Will obtain RAST panel, CBC with differential, and IgE level for further evaluation. (3) Encounter for preoperative pulmonary examination: Code(s): Z01.811 - Encounter for preprocedural respiratory examination Category: Medical Plan: At this time patient is at low risk for pulmonary perioperative complications for the proposed cholecystectomy under general anesthesia. Medications: New ipratropium bromide administer into each nostril 2 sprays intranasal TID-QID PRN 15 mL 3RF nasal congestion Coding Level of Care Code Est Pt Level 4 (28907) Complex EM visit Add On G2211 Diagnoses Moderate persistent asthma J45.40 Environmental allergies Z91.09 Encounter for preoperative pulmonary examination Z01.811
[2024-05-04 10:42] VITALS: BP 108/70; PULSE 70; O2SAT 98; BMI 22.0
--- OUTSIDE RECORDS SUMMARY | 2024-05-04 12:23 | XMS_ITS | Clinical Summary ---
Author Organization [address] [place] [address] Address [address] [place] [address] Phone Care Team Providers Care Manager Administrative Name Role Phone Rama Lockett MD Primary Care Provider [phone] Allergies Active Allergy Reactions Criticality Noted Date [...] PM EDT Office Visit Orthopedic Surgery - [place] [address] [phone] Hernán Dover, KELLY [address] [address] Health Maintenance Due Date Last Done Comments [...] Most Recently Relevant to Health Maintenance Insurance [facility] [employer] Care Teams Manager Administrative Relationship Specialty Start Date End Date Rama Lockett MD 2 [facility] , [address] [facility] Physician Associ D/B/A: [facility] [place], [place] PCP - General Internal Medicine 08/12/16
== END 2024-05-04 10:54 | disposition home or self-care (01) ==
LOC: HO.HPS 10:29
PROVIDERS: PCP Internal Medicine; Visit Provider Internal Medicine Pulmonary Disease
DX: J45.40 Moderate persistent asthma, uncomplicated (principal); Z91.09 Other allergy status, other than to drugs and biological substances; Z01.811 Encounter for preprocedural respiratory examination
CPT/HCPCS: 99214; G2211

== ENCOUNTER 2024-05-27 11:39 | Day surgery (SDC) | payer OTHER, SELFPAY ==
[2024-05-24 15:10] VITALS: BMI 22.0
--- NOTE | 2024-05-26 12:07 | P.HPSUR_ITS ---
Pre-Procedural Eval Section A - 24 Hr Update-Section A only Date of Service: 05/27/24 The patient is an INPATIENT: No Changes since office visit: No Cold of Flu in the past 2 weeks, No New Medical Problems, No Changes in Medication and No Patient answered all questions Section B - Complete if H&P > 30 days Chief Complaint: Calculus of bile duct without cholangitis or arminda Allergies: Allergies Allergy/AdvReac Type Severity Reaction Status Date / Time Sulfa (Sulfonamide Allergy Intermediate swelling, Verified 05/04/24 10:44 Antibiotics) itchiness Review of Systems Sugical H&P ROS: Negative: Constitution, Cardiovascular, Respiratory, Neurological, Psychiatric, Hem-Onc, Allergic/Immunologic, Gastrointestinal, Genitourinary, Musculoskeletal, Integumentary, Endocrine and Eyes/Ears/Nose/Throat Exam Surgical H&P Exam: Normal: HEENT, Normal: Heart, Normal: Lungs, Normal: Ext remities, Normal: Abdomen, Normal: Skin and Normal: Neurological Plan I have reviewed the history and physical and performed a pertinent physical examination on my patient. No changes have occurred unless specified. Time Spent With Patient Time: Total time managing care of this patient today ____ minutes.
[2024-05-27] VITALS (7 sets, daily range): BP systolic 120–134; BP diastolic 56–67; PULSE 60–77; RESP 12–18; TEMP 36.3–36.4; O2SAT 97–99; BMI 21.5
[2024-05-27] MEDS: Lactated Ringers 1,000 ML 100 ML IVCONT (12:15)
--- NOTE | 2024-05-27 13:51 | HO.ANESPROP2 ---
Documented by User: Miroslava Blandon NP 05/26/24 12:48 HPI - Anesthesia Eval Consult details Narrative: 63yo F for Cholecystectomy Laparoscopic, possible open [place] [facility] asthma/allergic rhinitis. Stable and optimized to proceed. ON LICENSE OF [facility] Active Problems Active Problems: All Active Problems Encounter for preoperative pulmonary examination (Acute) Recurrent biliary colic (Acute) Gallbladder anomaly (Acute) Abdominal pain (Acute) Migraines (Acute) Skin lesion (Acute) GERD (gastroesophageal reflux disease) (Acute) Moderate persistent asthma (Acute) COVID-19 virus infection (Acute) Ankle pain, right (Acute) Environmental allergies (Acute) Right hip pain (Acute) Lump of right breast (Acute) Insomnia (Acute) Rash (Acute) Mild persistent asthma (Acute) Screening for diabetes mellitus (Acute) Skin lesion (Acute) Multiple allergies (Acute) Encounter for physical examination (Acute) Chronic fatigue (Acute) Encounter for annual routine gynecological examination (Acute) Pure hypercholesterolemia (Acute) Hypovitaminosis D (Acute) Moderate persistent asthma (Acute) Past Medical History Medical History (Updated 05/24/24 @ 15:12 by Blanca Sparks RN) Allergic rhinitis Mild recurrent major depression Pure hypercholesterolemia Hypovitaminosis D Moderate persistent asthma Family History Family History Father Asthma Heart attack Mother Heart attack Asthma Sister History of breast cancer Family/Other Ovarian cancer Maternal Uncle Prostate cancer Paternal Uncle Colon cancer Surgical History Surgical History History of tubal ligation Social History Social History Housing: Apartment Alcohol intake: never Patient Tobacco Use Status: Never used Tobacco e-Cigarette/Vaping Use: Never Used Second Hand Smoke Exposure: No Have you been hit, kicked, punched, or otherwise hurt by someone within the past year? If so, by whom?: No Are you DNR?: No Advance Directives: No Advance Directives Information Provided: Yes service: No Current occupational status: disabled Cognitive needs: No Hearing needs: No Vision needs: Yes Meds Allergies Allergy/AdvReac Type Severity Reaction Status Date / Time Sulfa (Sulfonamide Allergy Intermediate swelling, Verified 05/04/24 10:44 Antibiotics) itchiness Exam Height,Weight and Vital Signs: Height 5 ft 8 in Weight 65.771 kg Pertinent Lab Results Pertinent Lab Results: Laboratory Tests 05/04/24 11:07 WBC 7.1 Hgb 13.0 Hct 39.5 Plt Count 254 Sodium 140 Potassium 4.0 Chloride 110 H Carbon Dioxide 27 BUN 17 H Creatinine 0.63 Assessment and Plan Assessment Anesthesia Assessment: Chart Reviewed Documented by User: Ciera Landeros DO 05/27/24 13:52 ON LICENSE OF [facility] Past Medical History Medical History (Updated 05/24/24 @ 15:12 by Blanca Sparks RN) Allergic rhinitis Mild recurrent major depression Pure hypercholesterolemia Hypovitaminosis D Moderate persistent asthma Family History Family History Father Asthma Heart attack Mother Heart attack Asthma Sister History of breast cancer Family/Other Ovarian cancer Maternal Uncle Prostate cancer Paternal Uncle Colon cancer Family history of problems with anesthesia: No Surgical History Surgical History History of tubal ligation History of Problems with Anesthesia: No Social History Social History Housing: Apartment Alcohol intake: never Patient Tobacco Use Status: Never used Tobacco e-Cigarette/Vaping Use: Never Used Second Hand Smoke Exposure: No Have you been hit, kicked, punched, or otherwise hurt by someone within the past year? If so, by whom?: No Are you DNR?: No Advance Directives: No Advance Directives Information Provided: Yes service: No Current occupational status: disabled Cognitive needs: No Hearing needs: No Vision needs: Yes Meds Allergies Allergy/AdvReac Type Severity Reaction Status Date / Time Sulfa (Sulfonamide Allergy Intermediate swelling, Verified 05/04/24 10:44 Antibiotics) itchiness Exam Exam Date and Time: 05/27/24 1350 Height,Weight and Vital Signs: Height 5 ft 8 in Weight 65.771 kg Vital Signs Temperature 97.4 F 05/27/24 11:53 Pulse Rate 77 05/27/24 11:53 Respiratory Rate 18 05/27/24 11:53 Blood Pressure 126/67 05/27/24 11:53 Pulse Oximetry 98 05/27/24 11:53 Oxygen Delivery Method Blow By 05/27/24 11:53 Temperature 97.4 F 05/27/24 11:53 Pulse Rate 77 05/27/24 11:53 Respiratory Rate 18 05/27/24 11:53 Blood Pressure 126/67 05/27/24 11:53 Pulse Oximetry 98 05/27/24 11:53 Oxygen Delivery Method Blow By 05/27/24 11:53 Airway Mallampati Class: I TM Dist: >3cm Neck ROM: Full Partial: Upper and Lower Heart: S1S2 Lungs: CTAB Assessment and Plan Assessment Anesthesia Assessment: Anesthesia Plan Discussed and Chart Reviewed Final Anesthetic Review Family History of Problems with Anesthesia: No History of Problems with Anesthesia: No NPO: Yes ASA Class: II Final Preanesthetic Review: No Changes in Pt Med Stat, Meds/Allgs Chart Reviewed, Consent Obtained/Reviewed and Anes Risks/Benef Reviewed Patient Risk: Low Procedure Risk: Intermediate Anesthetic Plan Anesthetic Plan: GA and Agree w/ Assess. and Plan Disposition: Standard PACU
--- NOTE | 2024-05-27 15:58 | W.PM.OPN ---
Operative Note Operative Note Date of Service: 05/27/24 Narrative: Preoperative diagnosis: [] Symptomatic gallbladder Postop diagnosis: [] The same Procedure [] laparoscopic cholecystectomy Surgeon: [] Harvinder End User Consultant: [] Luz Maria Type of Anesthesia: [] General Indication for surgery: [] Gallbladder with omental adhesions to it. Moderately intrahepatic gallbladder. Findings: [] Patient brought to the operating room, placed on operative table supine position, after an adequate level of general anesthesia was induced, the patient's abdomen was prepped and draped in usual sterile fashion. Using a supraumbilical curvilinear incision, Arnold technique was used to insufflate abdominal cavity to 15 mm of CO2. Upper midline and right subcostal ports were placed under direct laparoscopic view, and the patient placed in reverse Trendelenburg position, and tilted to the left. Findings were as noted above. Gallbladder was grasped using laparoscopic graspers and retracted superiorly and laterally. Soft omental adhesions were swept off the gallbladder the hilum was approached. Cystic artery and cystic duct were each identified, circumferentially skeletonized, traced directly into the gallbladder, and critical view obtained. Each was clipped proximally x2, distally x1, and transected. The gallbladder which was moderately intrahepatic was then cauterized from the gallbladder fossa using Bovie. Specimen was placed in an Endo-Catch bag, and retrieved through the umbilical port. Abdominal cavity was copiously irrigated and secured hemostasis. All ports removed under direct laparoscopic view. Wounds were closed in the following manner; umbilical wound is fascia reapproximated using interrupted 0 Vicryl sutures. Skin wounds were closed using subcuticular 4-0 Vicryl sutures followed by Steri-Strips and sterile dressings. Wounds were infiltrated 0.5% Marcaine at completion. Sponge, needle, and instrument counts reported correct. Patient tolerated the procedure well and emerged from anesthesia stable condition. EBL minimal
== END 2024-05-27 17:04 | disposition home or self-care (01) ==
PROVIDERS: PCP Internal Medicine; Visit Provider Surgery
PROC: 0FT44ZZ Resection of Gallbladder, Percutaneous Endoscopic Approach (ICD-10-PCS; CPT 47562; principal; 2024-05-27 13:40)
DX: K81.1 Chronic cholecystitis (principal); K82.8 Other specified diseases of gallbladder; Q44.1 Other congenital malformations of gallbladder; E78.00 Pure hypercholesterolemia, unspecified; E55.9 Vitamin D deficiency, unspecified; J45.40 Moderate persistent asthma, uncomplicated; F33.0 Major depressive disorder, recurrent, mild; Z79.51 Long term (current) use of inhaled steroids; Z79.899 Other long term (current) drug therapy; Z88.2 Allergy status to sulfonamides
CPT/HCPCS: 47562; 88304; J0131; J0690; J1100; J1885; J2003; J2250; J2371; J2405; J2704; J2795; J3010

== ENCOUNTER → 2024-05-27 11:39 | Outpatient (BNV) | payer OTHER, SELFPAY | PROVIDERS: PCP Internal Medicine; Visit Provider Surgery | DX: K80.50 Calculus of bile duct without cholangitis or cholecystitis without obstruction (principal) | CPT/HCPCS: 47562 ==

== ENCOUNTER 2024-06-07 10:41 | Outpatient (AMB) | payer OTHER, SELFPAY ==
--- NOTE | 2024-06-07 10:47 | A.OFFVIS_ITS ---
Vital Signs 06/07/24 10:52 Weight 142 lb BP 117/66 Blood Pressure Location Rt brachial Position Sitting Pulse 76 Intake Visit Reasons: S/P lap arminda Intake Note: Patient here s/p laparoscopic cholecystectomy. Reports incision healing well. Patient c/o: some steri strips fell off. Only took pain meds for the first night. Surgery: 05-27-2024. Claim Investigator Required: No Accompanied by: Allergies Sulfa (Sulfonamide Antibiotics) Allergy (Intermediate, Verified 06/07/24 10:52) swelling, itchiness HPI Comments Details: Patient presents with her significant other. Status post laparoscopic cholecystectomy. Patient was doing well. She is tolerating a diet. She is having regular bowel habits. Increasing her activity level. Minimal incisional discomfort [facility] Medical History (Updated 05/24/24 @ 15:12 by Blanca Sparks RN) Allergic rhinitis Mild recurrent major depression Pure hypercholesterolemia Hypovitaminosis D Moderate persistent asthma Surgical History (Updated 06/07/24 @ 11:04 by Ruben Blanton MD) History of tubal ligation Family History Father Asthma Heart attack Mother Heart attack Asthma Sister History of breast cancer Family/Other Ovarian cancer Maternal Uncle Prostate cancer Paternal Uncle Colon cancer Social History Housing: Apartment Alcohol intake: never Patient Tobacco Use Status: Never used Tobacco e-Cigarette/Vaping Use: Never Used Second Hand Smoke Exposure: No service: No Current occupational status: disabled Cognitive needs: No Hearing needs: No Vision needs: Yes Female Reproductive History Menstrual Age of Menarche: 12 Physical Exam Vital Signs: Last Vital Signs Pulse 76 06/07/24 10:52 BP 117/66 06/07/24 10:52 Eyes Other: Anicteric GI Other: Abdomen is soft. All wounds clean dry and intact healing well Assessment & Plan Assessment & Plan (1) Status post laparoscopic cholecystectomy: Code(s): Z90.49 - Acquired absence of other specified parts of digestive tract Category: Medical Plan Patient was been given local instructions including avoiding strenuous activities next few weeks time and will otherwise follow-up p.r.n.. All questions answered. Coding Level of Care Code Global (55523) Diagnoses Status post laparoscopic cholecystectomy Z90.49
[2024-06-07 10:52] VITALS: BP 117/66; PULSE 76
--- OUTSIDE RECORDS SUMMARY | 2024-06-07 12:44 | XMS_ITS | Clinical Summary ---
Author Organization [address] [facility] Address [address] [place] [address] Phone Care Team Providers Care Boilermaker Apprentice Name Role Phone Rama Lockett MD Primary Care Provider [phone] Allergies Active Allergy Reactions Criticality Noted Date Comments Sulfa (Sulfonamide Antibiotics) 08/14/2016 Other Reaction(s): Hives/Urticaria Medications cholecalciferol (VITAMIN D-3) 50 mcg (2,000 unit) capsule Take by mouth daily. Active Hospital, Clinic, or Other Facility Administered Medication Ordered Dose Route Frequency Start Date End Date Status lidocaine (PF) (XYLOCAINE-MPF) 1 % injection 1 mLIndications:Planta r fasciitis 1 mL inj Once PRN Procedure 05/18/2024 05/18/2024 Ended triamcinolone acetonide (KENALOG-40) 40 mg/mL injection 40 mgIndications:Planta r fasciitis 40 mg IAtc Once PRN Procedure 05/18/2024 05/18/2024 Ended Encounters Date Type Department Care Team Description 05/18/2024 1:15 PM EDT Office Visit Orthopedic Surgery [facility] [address] [id number] Hernán Dover DPM Pain in right ankle and joints of right foot (Primary Dx); Pes planus of both feet; Equinus contracture of right ankle; Plantar fasciitis from Last 3 Months Social History Tobacco Use Types Packs/Day Years Used Date Smoking Tobacco: Never Assessed Comments Unknown Sex and Gender Information Value Date Recorded Sex Assigned at Not on file Legal Sex Female 2:16 AM EST Gender Identity Not on file Sexual Orientation Not on file Last Filed Vital Signs Vital Sign Reading Time Taken Comments Blood Pressure - - Pulse - - Temperature - - Respiratory Rate - - Oxygen Saturation - - Inhaled Oxygen Concentration - - Weight 65.8 kg (145 lb) 05/18/2024 1:03 PM EDT Height 172.7 cm (5' 8 ) 05/18/2024 1:03 PM EDT Body Mass Index 22.05 05/18/2024 1:03 PM EDT Plan of Treatment Health Maintenance Due Date Last Done Comments Breast Cancer Screening 1960 Hepatitis B Vaccines (3 of 3 - 19+ 3-dose series) 02/18/2017 10/21/2016, 08/18/2016 Cervical Cancer Screening: Pap Smear 03/30/2017 03/30/2014, 03/30/2014 COVID-19 Vaccine ( season) 2023 01/21/2021, 05/19/2020 Colorectal Cancer Screening: Colonoscopy 03/30/2024 Depression Screening 03/30/2024 Social Influencers of Health Screening 03/30/2024 DTaP,Tdap,and Td Vaccines (2 - Td or Tdap) 03/07/2034 03/07/2024 RSV Immunization Adult Patients (1 - 1-dose 75+ series) 11/06/2034 HIV Screening Completed 08/14/2016 Hepatitis C Screening Completed 08/14/2016 Zoster Vaccines Completed 03/01/2018, 09/08/2017 Pneumococcal Vaccine: 50+ Years Completed 02/19/2023, 07/27/2020 Pneumococcal Vaccine: Pediatrics (0 to 5 Years) and At-Risk Patients (6 to 64 Years) Aged Out 02/19/2023, 07/27/2020 No longer eligibl e based on patient's age to complete this topic Influenza Vaccine Completed 11/10/2023, , 11/06/2021, Additional history exists HIB Vaccines Aged Out No longer eligi [...] age to complete this topic Meningococcal B Vaccine Aged Out No l onger eligible based on patient's age to complete this topic RSV Immunization Patients Under 20 months Aged Out No longer eligible based on patient's age to complete this topic Varicella Vaccines Aged Out No longer eligible based on patient's age to complete this topic Procedures Procedure Name Priority Date/Time Associated Diagnosis Comments INJECTION TENDON OR LIGAMENT Routine 05/18/2024 1:15 PM EDT Plantar fasciitis HEPATITIS C SCREENING Routine 08/14/2016 HIV SCREENING Routine 08/14/2016 HPV Routine 03/30/2014 from Last 3 Months or Most Recently Relevant to Health Maintenance Results * Injection tendon or ligament (05/18/2024 1:15 PM EDT) Narrative Hernán Dover DPM - 05/18/2024 1:15 PM EDT Hernán Dover DPM ? 05/18/2024 ??6:02 PM Injection tendon or ligament Indications: pain Details: 25 G needle Medications: 1 mL lidocaine (PF) 1 %; 40 mg triamcinolone acetonide 40 mg/mL Informed Consent: ??Laterality: ??Right Hernán Dover DPM IN CLINIC/BEDSIDE ORDERABLE S Final Result * HIV Screening (08/14/2016) HIV Screening abstracted Result [facility] Provider HEALTH MAINTENANCE Final Result * Hepatitis C Screening (08/14/2016) Pathologist [facility] Hepatitis C Screening abstracted [facility] Provider HEALTH MAINTENANCE Final Result * Cervical Cancer Screening: HPV (03/30/2014) Pathologist [facility] Cervical Cancer Screening: HPV no interpreta tion,abstr acted [facility] Provider HEALTH MAINTENANCE Final Result from Last 3 Months or Most Recently Relevant to Health Maintenance Insurance [facility] [place] [address] Care Teams Boilermaker Apprentice Relationship Specialty Start Date End Date Rama Lockett MD [facility] , [address] Physician Associ D/B/A: [facility] [place] PCP - General Internal Medicine 08/12/16
== END 2024-06-07 11:32 | disposition home or self-care (01) ==
LOC: HO.HGS 10:42
PROVIDERS: PCP Internal Medicine; Visit Provider Surgery
DX: Z90.49 Acquired absence of other specified parts of digestive tract (principal)
CPT/HCPCS: 99024

== ENCOUNTER → 2024-06-07 10:41 | Outpatient (BNVA) | payer OTHER, SELFPAY | PROVIDERS: PCP Internal Medicine; Visit Provider Surgery | DX: Z09 Encounter for follow-up examination after completed treatment for conditions other than malignant neoplasm (principal); Z90.49 Acquired absence of other specified parts of digestive tract | CPT/HCPCS: 99212 ==

== ENCOUNTER 2024-06-23 13:57 | Outpatient (REF) | payer OTHER, SELFPAY ==
--- NOTE | ~2024-06-23 | MM_ITS ---
EXAMINATION: DXA BONE DENSITY AXIAL HISTORY: Z78.0 - Asymptomatic menopausal state TECHNIQUE: CC video Dual energy absorptiometry (DEXA) of the lumbar spine, total left hip, and femoral neck was performed. COMPARISON: Comparison is made with the prior examination dated 01/12/2019. FINDINGS: The bone mineral density of the lumbar spine is 1.033 with a T-score of -1.2, and a Z-score of 0.3. This is indicative of osteopenia. This represents a BMD change of -5.4% compared to the prior exam. This is statistically significant. The bone mineral density of the left total hip is 0.796 with a T-score of -1.7, and a Z-score of -0.5. This is indicative of osteopenia. This represents a BMD change of -2.1% compared to the prior exam. This is not statistically significant. The bone mineral density of the left femoral neck is 0.815 with a T-score of -1.6, and a Z-score of -0.2. This is indicative of osteopenia. This represents a BMD change of -4.8% compared to the prior exam. FRACTURE RISK: The FRAX index suggests a ten year probability of major osteoporotic fracture of 4.8%, and of hip fracture 0.6%. MM/XR DEXA axial skeleton IMPRESSION: Based on bone mineral density, and according to World Health Organization (WHO) criteria, the diagnosis is consistent with osteopenia. All bone density values are in grams per centimeter squared (g/cm2). Statistically, 68% of repeat scans fall within 1 SD (+/- 0.010 g/cm2 for AP spine L1-L4) and 1 SD (+/- 0.012 g/cm2 for femur total) FRAX is a trademark of the [employer]'s [place] [employer] Metabolic Bone Disease, a World Health Organization (WHO) Collaborating Center. Electronically signed by: Narayan Perez MD 06/23/2024 03:00 PM EDT
--- OUTSIDE RECORDS SUMMARY | 2024-06-23 14:52 | XMS_ITS | Clinical Summary ---
Author Organization [address] [facility] Address [address] [place] [address] Phone Care Team Providers Care Bingo Manager Name Role Phone Rama Lockett MD Primary Care Provider [phone] Allergies Active Allergy Reactions Criticality Noted Date Comments Sulfa (Sulfonamide Antibiotics) 08/14/2016 Other Reaction(s): Hives/Urticaria Medications cholecalciferol (VITAMIN D-3) 50 mcg (2,000 unit) capsule Take by mouth daily. Active Encounters Date Type Department Care Team Description 05/18/2024 1:15 PM EDT Office Visit Orthopedic Surgery - [place] [address] [place] [id number] Hernán Dover DPM Pain in right [...] Routine 05/18/2024 1:15 PM EDT Plantar fasciitis HM HEPATITIS C SCREENING Routine 08/14/2016 HIV SCREENING [...] * HIV Screening (08/14/2016) HIV Screening abstracted Historical Provider HEALTH MAINTENANCE Final Result * Hepatitis C Screening (08/14/2016) Hepatitis C Screening abstracted [facility] Provider HEALTH MAINTENANCE Final Result * Cervical Cancer Screening: HPV (03/30/2014) Pathologist [facility] Cervical Cancer Screening: HPV no interpreta tion,abstr acted [facility] Provider HEALTH MAINTENANCE Final Result from Last 3 Months or Most Recently Relevant to Health Maintenance Insurance [facility] [facility] Care Teams Bingo Manager Relationship Specialty Start Date End Date Rama Lockett MD 2 [facility] , [address] Physician Associ D/B/A: [facility] [place] PCP - General Internal Medicine 08/12/16
== END 2024-06-23 13:58 | disposition home or self-care (01) ==
LOC: HO.MAMMO 13:57
PROVIDERS: PCP Internal Medicine; Visit Provider Internal Medicine
DX: Z12.31 Encounter for screening mammogram for malignant neoplasm of breast (principal); Z13.820 Encounter for screening for osteoporosis; Z78.0 Asymptomatic menopausal state
CPT/HCPCS: 77063; 77067; 77080

== ENCOUNTER → 2024-06-23 14:30 | Outpatient (BNV) | payer OTHER, SELFPAY | PROVIDERS: PCP Internal Medicine; Visit Provider Radiology Diagnostic Radiology | DX: E28.39 Other primary ovarian failure (principal) | CPT/HCPCS: 77080 ==

== ENCOUNTER 2024-10-18 16:02 | Outpatient (AMB) | payer MEDICARE, MEDICAID, SELFPAY ==
--- NOTE | 2024-10-18 16:08 | MHC.PC.OV ---
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 Required: No Accompanied by: Self / Same As Patient Allergies Sulfa (Sulfonamide Antibiotics) Allergy (Intermediate, Verified 10/18/24 16:32) swelling, itchiness Medication List - Last Reconciled 10/18/24 by Rama Lockett MD albuterol sulfate 0.8333 mg PO Q6H amitriptyline 10 mg PO BEDTIME 90 days budesonide-formoterol 160-4.5 mcg/actuation (Symbicort) 2 puffs inhalation BID 30 days calcium carbonate-vitamin D3 500 mg-10 mcg (400 unit) (Oyster Shell Calcium-Vitamin D3) 1 tab PO BID 90 days ipratropium bromide 2 sprays intranasal TID-QID PRN sumatriptan succinate 25 mg PO Q2-4H PRN 30 days Ventolin HFA 90 mcg/actuation (albuterol sulfate) 2 puffs inhalation Q6H PRN 30 days NS Tobacco use date assessed: 10/18/24 Fall risk assessment: No Falls in past year Last assessed Fall Risk: 10/18/24 Dental Screening Dental Screen Date: 10/18/24 Did you have a dental visit in the last 12 months?: Yes Did you have a dental problem in the last 6 months where you did not have access to dental care?: No Was dental information given to patient?: Patient has dentist HPI HPI Comments History of Present Illness Details This is a 63-year-old female with osteopenia, low vitamin-D and moderate persistent asthma that complains of persistent headaches that happens every day. This has been going on for over 2 weeks. No neurological deficit associated with it but she does have a history of migraines and I will refer her to Neurology and order an MRI of the brain. She also complains of neck pain and low back pain due to cervical radiculopathy and lumbar radiculopathy and will be referred to pain management. DEXA scan done 2024 and next DEXA should be 2026. Cologuard done 2021 and I will order another Cologuard. Asthma well controlled with long-acting inhaler and use rescue inhaler as needed. Has some mild major depression that has been stable with amitriptyline. PFSH Medical History (Updated 10/18/24 @ 16:42 by Rama Lockett MD) Allergic rhinitis Mild recurrent major depression Pure hypercholesterolemia Hypovitaminosis D Moderate persistent asthma Surgical History History of tubal ligation Family History Father Asthma Heart attack Mother Heart attack Asthma Sister History of breast cancer Family/Other Ovarian cancer Maternal Uncle Prostate cancer Paternal Uncle Colon cancer Social History Housing: Apartment Alcohol intake: never Patient Tobacco Use Status: Never used Tobacco e-Cigarette/Vaping Use: Never Used Second Hand Smoke Exposure: No service: No Current occupational status: disabled Cognitive needs: No Hearing needs: No Vision needs: Yes Female Reproductive History Menstrual Age of Menarche: 12 Questionnaire PHQ-9 Over the last 2 weeks, how often have you been bothered by any of the following problems? 1. Little interest or pleasure in doing things: several days 2. Feeling down, depressed, or hopeless: several days 3. Trouble falling or staying asleep, or sleeping too much: nearly every day 4. Feeling tired or having little energy: nearly every day 5. Poor appetite or overeating: several days 6. Feeling bad about yourself - or that you are a failure or have let yourself or your family down: several days 7. Trouble concentrating on things, such as reading the newspaper or watching television: several days 8. Moving or speaking so slowly that other people could have noticed. Or the opposite - being so fidgety or restless that you have been moving around a lot more than usual: not at all 9. Thoughts that you would be better off or of hurting yourself in some way: not at all Total score: 11 Depression Screening Interpretation: Positive Depression Screening Follow-up: Existing condition, In treatment, Follow-up Visit Requested and Declines treatment Depression Screening Done: Yes 99218 - PHQ-9 Billing: Yes Source: Developed by Drs. Narayan Nuñez, Thea Fisher, Radhames Young and colleagues, with an educational mark from [employer]. Thrive Questionnaire Date Thrive assessed: 05/02/24 I am a: Patient What is your living situation today?: I have a steady place to live Within the past 12 months, did the food you bought not last and you didn't have the money to get more?: Never true Within the past 12 months, did you worry whether your food would run out before you got money to buy more?: Never true Do you have trouble paying for medicines?: No Do you have trouble getting transportation to medical appointments?: No Do you have trouble paying your heating and electricity bill?: No Do you have trouble taking care of your child, family member or friend?: No Do you have trouble with day-to-day activities such as bathing, preparing meals, shopping, managing finances, etc.?: No Are you currently unemployed and looking for a job?: No Are you interested in more education?: No Please select the resources that you would like help with: None Currently or been in a relationship where the following occur: No concerns reported THRIVE Score: 0 AUDIT C Alcohol Use Questionnaire (AUDIT-C) 1. How often do you have a drink containing alcohol?: Never Total Score: 0 Score Reviewed/Action Taken: No JUSTUS-7 AMB Questionnaire JUSTUS-7 Date JUSTUS - 7 assessed: 03/07/24 Feeling nervous, anxious, or on edge: 1 = Several days Not being able to stop or control worryin = Nearly every day Worrying too much about different things: 3 = Nearly every day Trouble relaxin = Nearly every day Being so restless that it is hard to sit still: 3 = Nearly every day Becoming easily annoyed or irritable: 3 = Nearly every day Feeling afraid as if something awful might happen: 3 = Nearly every day Total JUSTUS-7 score (0-4 normal; 5-9 mild; 10-14 moderate; 15-21 severe): 19 Source: Developed by Drs. Narayan Nuñez, Thea Fisher, Radhames Young and colleagues, with an educational mark from [employer]. JUSTUS-7 Assessment Billing JUSTUS-7 Assessment Tool: JUSTUS-7 Assessment 44310 Review of Systems Const All systems reviewed & are unremarkable except as noted in HPI and below Card Denies chest pain at rest, Denies chest pain with activity, Denies edema, Denies irregular heart rhythm, Denies claudication, Denies dyspnea, Denies dyspnea on exertion, Denies orthopnea, Denies paroxysmal nocturnal dyspnea and Denies slow heart rate Resp Denies cough, Denies dyspnea and Denies dyspnea on exertion GI Denies abdominal pain, Denies change in bowel habits, Denies excessive flatus, Denies nausea and Denies vomiting Physical exam (Primary Care) Vital Signs: Last Vital Signs Pulse 86 10/18/24 16:09 BP 112/78 10/18/24 16:09 Pulse Ox 97 10/18/24 16:09 Tobacco/Smoking Status: Tobacco use Status Tobacco use date assessed 10/18/24 10/18/24 16:14 Patient Tobacco Use Status Never used Tobacco 10/18/24 16:14 e-Cigarette/Vaping Use Never Used 10/18/24 16:14 PHQ-9: PHQ-9 Score PHQ-9: Total score 11 10/18/24 16:14 Depression Screening Interpretation: Positive Depression Screening Follow-up: Existing condition, In treatment, Follow-up Visit Requested and Declines treatment Thrive Assessment: Date of Thrive Assessment Date Thrive assessed 05/02/24 10/18/24 16:14 Currently or been in a relationship where the following occur: No concerns reported Resp Effort & Inspection: normal respiratory effort Auscultation: clear to auscultation bilaterally Cardio Jugular venous distension: no JVD Rate: regular rate Rhythm: regular rhythm Heart sounds: S1 normal heart sound present and S2 normal heart sound present Extrem General: Yes full ROM Coding Level of Care Code Est Pt Level 4 (14138) Complex EM visit Add On G2211 Diagnoses Osteopenia M85.80 Hypovitaminosis D E55.9 Persistent headaches R51.9 Cervical radiculopathy M54.12 Lumbar radiculopathy M54.16 Moderate persistent asthma J45.40 Additional Codes JUSTUS-7 Assessment Billing - JUSTUS-7 Assessment Tool: JUSTUS-7 Assessment 61280 ([id number]) PHQ-9 - 55767 - PHQ-9 Billing: Yes ([id number]) Time Spent (min) 21 Assessment & Plan Assessment & Plan (1) Osteopenia: Code(s): M85.80 - Other specified disorders of bone density and structure, unspecified site Category: Medical (2) Hypovitaminosis D: Code(s): E55.9 - Vitamin D deficiency, unspecified Category: Medical (3) Persistent headaches: Code(s): R51.9 - Headache, unspecified Category: Medical (4) Cervical radiculopathy: Code(s): M54.12 - Radiculopathy, cervical region Category: Medical (5) Lumbar radiculopathy: Code(s): M54.16 - Radiculopathy, lumbar region Category: Medical (6) Moderate persistent asthma: Code(s): J45.40 - Moderate persistent asthma, uncomplicated Category: Medical Plan Continue current meds. MRI of the brain ordered. Refer her to Neurology done. Referred to pain management for neck and low back pain. Orders: Orders MR head/brain wo con Today R51.9 - Headache, unspecified Referrals Cologuard Test Z12.11 - Encounter for screening for malignant neoplasm of colon, Z12.12 - Encounter for screening for malignant neoplasm of rectum Neurology Referral R51.9 - Headache, unspecified Pain Management Referral M54.12 - Radiculopathy, cervical region, M54.16 - Radiculopathy, lumbar region
[2024-10-18 16:09] VITALS: BP 112/78; PULSE 86; O2SAT 97; BMI 20.4
--- OUTSIDE RECORDS SUMMARY | 2024-10-18 16:45 | XMS_ITS | Clinical Summary ---
Author Organization [address] [place] [address] Address [address] [place] [address] Phone Care Team Providers Care Laundry Press Operator Name Role Phone Rama Lockett MD Primary Care Provider [phone] Allergies Active Allergy Reactions Criticality Noted Date [...] Cancer Screening: Pap Smear 03/30/2017 03/30/2014, 03/30/2014 Depression Screening 02/17/2024 Colorectal Cancer Screening: Colonoscopy 03/30/2024 Social Influencers of Health Screening 03/30/2024 COVID-19 Vaccine ( season) 2024 01/21/2021, 05/19/2020 Influenza Vaccine (#1) 2024 4, 11/17/2022, 11/06/2021, Additional history exists DTaP,Tdap,and Td Vaccines (2 - Td or Tdap) 03/07/2034 03/07/2024 RSV Immunization Adult Patients (1 - 1-dose 75+ series) 11/06/2034 HIV Screening Completed 08/14/2016 Hepatitis C Screening Completed 08/14/2016 Zoster Vaccines Completed 03/01/2018, 09/08/2017 Pneumococcal Vaccine: 50+ Years Completed 02/19/2023, 07/27/2020 HIB Vaccines Aged Out No longer eligi [...] * Cervical Cancer Screening: HPV (03/30/2014) Pathologist [facility] Cervical Cancer Screening: HPV no interpreta tion,abstr acted us Historical Provider HEALTH MAINTENANCE Final Result from Last 3 Months or Most Recently Relevant to Health Maintenance Insurance [facility] [place] [address] Care Teams Laundry Press Operator Relationship Specialty Start Date End Date Rama Lockett MD [address] [place] [address] , [address] [facility] D/B/A: [facility] [place] PCP - General Internal Medicine 08/12/16
== END 2024-10-18 16:45 | disposition home or self-care (01) ==
LOC: HO.HMCH 16:03
PROVIDERS: PCP Internal Medicine; Visit Provider Internal Medicine
DX: M85.80 Other specified disorders of bone density and structure, unspecified site (principal); E55.9 Vitamin D deficiency, unspecified; R51.9 Headache, unspecified; M54.12 Radiculopathy, cervical region; M54.16 Radiculopathy, lumbar region; J45.40 Moderate persistent asthma, uncomplicated

== ENCOUNTER → 2024-10-18 16:02 | Outpatient (BNVA) | payer MEDICARE, MEDICAID, SELFPAY | PROVIDERS: PCP Internal Medicine; Visit Provider Internal Medicine | DX: J45.40 Moderate persistent asthma, uncomplicated (principal); M85.80 Other specified disorders of bone density and structure, unspecified site; E55.9 Vitamin D deficiency, unspecified; G43.909 Migraine, unspecified, not intractable, without status migrainosus; M54.12 Radiculopathy, cervical region; M54.16 Radiculopathy, lumbar region | CPT/HCPCS: 96127; 99212 ==

== ENCOUNTER 2024-11-01 13:32 | Outpatient (REF) | payer MEDICARE, MEDICAID, SELFPAY ==
--- NOTE | ~2024-11-01 | XR_ITS ---
EXAMINATION: XR LUMBOSACRAL SPINE WITH OBLIQUES CLINICAL INFORMATION: M54.16 - Radiculopathy, lumbar region COMPARISON: January 22, 2016 TECHNIQUE: AP oblique and lateral views FINDINGS: Endplate sclerosis marginal osteophyte formation and decreased intervertebral disc height at L5-S1. Small marginal osteophyte formation at multiple levels from L2 to L5 S1. No acute cortical disruption or malalignment. Mild S-shaped curvature of the lumbar spine. No lytic or blastic lesions. Vascular clips in the right upper quadrant abdomen. XR/XR lumbar spine 4V min IMPRESSION: Multilevel spondylosis pronounced at L5-S1 and to a lesser extent L4-5. Electronically signed by: Joseph Crooks MD 11/01/2024 03:14 PM EDT
--- NOTE | ~2024-11-01 | XR_ITS ---
EXAMINATION: XR CERVICAL SPINE CLINICAL INFORMATION: M54.12 - Radiculopathy, cervical region COMPARISON: January 22, 2016. TECHNIQUE: AP oblique lateral and atlantoodontoid views. FINDINGS: Craniocervical junction is intact. Anterior and posterior marginal osteophytes formations, decreased intervertebral disc height and endplate sclerosis C5-6 and to a lesser extent C6-7. Left neuroforamina and narrowing on a degenerative basis C5-C6 C6-7. No gross acute cortical disruption. No gross malalignment. No lytic or blastic lesions XR/XR cervical spine 4V IMPRESSION: Spondylosis C5-6 and C6-7, worsened since prior exam. Electronically signed by: Joseph Crooks MD 11/01/2024 03:07 PM EDT
== END 2024-11-01 13:33 | disposition home or self-care (01) ==
LOC: HO.XRAY 13:32
PROVIDERS: PCP Internal Medicine; Visit Provider Nurse Practitioner Family
DX: M47.22 Other spondylosis with radiculopathy, cervical region (principal); M47.26 Other spondylosis with radiculopathy, lumbar region; D17.22 Benign lipomatous neoplasm of skin and subcutaneous tissue of left arm; G89.29 Other chronic pain; M54.31 Sciatica, right side
CPT/HCPCS: 72050; 72110; 99202

== ENCOUNTER 2024-11-01 13:32 | Outpatient (AMB) | payer MEDICARE, MEDICAID, SELFPAY ==
--- NOTE | 2024-11-01 13:44 | MHC.OFFVIS ---
Vital Signs 11/01/24 13:48 Height 5 ft 8 in Weight 137 lb BMI 20.8 BP 104/65 Blood Pressure Location Rt brachial Position Sitting Pulse 80 Pulse Source Pulse Oximeter Pulse Oximetry (%) 100 Oxygen Delivery Method Room Air Intake Visit Reasons: RADICULOPATHY, CERVICAL Intake Note: Pain today 510 Pump Servicer Required: No Accompanied by: Self / Same As Patient Allergies Sulfa (Sulfonamide Antibiotics) Allergy (Intermediate, Verified 11/01/24 13:47) swelling, itchiness Medication List - Last Reconciled 11/01/24 by JACOBO Valle albuterol sulfate 0.8333 mg PO Q6H budesonide-formoterol 160-4.5 mcg/actuation (Symbicort) 2 puffs inhalation BID 30 days calcium carbonate-vitamin D3 500 mg-10 mcg (400 unit) (Oyster Shell Calcium-Vitamin D3) 1 tab PO BID 90 days ipratropium bromide 2 sprays intranasal TID-QID PRN sumatriptan succinate 25 mg PO Q2-4H PRN 30 days Ventolin HFA 90 mcg/actuation (albuterol sulfate) 2 puffs inhalation Q6H PRN 30 days NS HPI Comments Details: The patient is a 63-year-old female presenting with chronic neck pain and sciatica. The neck pain has been present for a long time, with no prior evaluations or treatments sought. The pain radiates to the left shoulder but does not extend down the arm. The sciatica is localized to the right side, extending from the buttock to the foot, and has been occurring for a few months. There were no specific inciting events reported. Denies previous spine surgery or injections. 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 It is not painful upon palpation and has not been previously reported to her primary care provider. Patient requests surgical consult to further evaluate this as this has been increasing in size. The patient experiences depression, which she manages through dancing and staying active, without psychiatric intervention. She reports insomnia, a condition she has experienced since childhood, and is awaiting a Neurology appointment for further evaluation. She also has migraines, for which she takes sumatriptan. - Neck pain: Chronic, radiates to left shoulder, does not extend down the arm - Sciatica: Right-sided, extends from buttock to foot, present for a few months - Exacerbating factors: Movement, particularly left neck rotation and extension - Relieving factors: Resting, heat therapy, does not like to take medications - Affect: Depression managed through dancing and staying active - Analgesia: No current pain medications mentioned for neck pain or sciatica - Adverse Effects: None reported - Activities of Daily Living: Pain impacts sleep and daily activities, but patient remains active - Aberrant Drug Related Behaviors: None reported [facility] Medical History Allergic rhinitis Mild recurrent major depression Pure hypercholesterolemia Hypovitaminosis D Moderate persistent asthma Surgical History History of tubal ligation Family History Father Asthma Heart attack Mother Heart attack Asthma Sister History of breast cancer Family/Other Ovarian cancer Maternal Uncle Prostate cancer Paternal Uncle Colon cancer Social History Housing: Apartment Alcohol intake: never Patient Tobacco Use Status: Never used Tobacco e-Cigarette/Vaping Use: Never Used Second Hand Smoke Exposure: No service: No Current occupational status: disabled Cognitive needs: No Hearing needs: No Vision needs: Yes Female Reproductive History Menstrual Age of Menarche: 12 Review of Systems Const Details: - Musculoskeletal: Reports chronic neck pain, right-sided sciatica, left shoulder non-tender lump - Neurological: Reports migraines, denies numbness or tingling in arms or legs, weakness, bladder or bowel dysfunction or saddle anesthesia - Psychiatric: Reports depression, insomnia All systems reviewed & are unremarkable except as noted in HPI and below Physical Exam Vital Signs: Last Vital Signs Pulse 80 11/01/24 13:48 BP 104/65 11/01/24 13:48 Pulse Ox 100 11/01/24 13:48 Oxygen Delivery Method Room Air 11/01/24 13:48 BMI result Body Mass Index 20.8 General: Appears afebrile. Alert and oriented. Mood and affect appropriate. Follows and participates in conversation appropriately. Respiratory effort is unlabored. No cough. Able to transition from sit to stand unassisted. Ambulates with bilaterally normal heel strike and toe off. Neck Neck: Yes normal visual inspection, Yes full ROM, Yes no lymphadenopathy, Yes supple, No anterior neck swelling, Yes no JVD, No prominent supraclavicular fat pad, No prominent dorsocervical fat pad and Yes other (left shoulder lipoma, non-tender, mobile, ~ 2x2 inch) General: Yes no CVA tenderness Back/Spine/Pelvis Back: no CVA tenderness Cervical Spine: cervical ROM normal, No Lhermitte's sign positive, cervical muscular tenderness, pain with cervical ROM (lateral rotations and extension), No Cervical spine scars present, cervical spasm, No Cervical spine tenderness and No step off deformity Thoracic/Lumbar Spine: thoracic and lumbar spine normal to inspection, No Thoracic/lumbar spine scar(s), Lasegue's sign negative, straight leg raise negative bilaterally, pain with thoraco-lumbar ROM, paraspinal muscle tenderness, thoraco-lumbar ROM limited, Thoracic/lumbar scoliosis, No thoracic spinal tenderness and lumbar spinal tenderness (L4-S1) Sacroiliac joints: bilaterally nontender Extrem General: Yes capillary refill normal, Yes no clubbing, cyanosis or edema and Yes no calf tenderness Results Reviewed Results Reviewed: XR LUMBOSACRAL SPINE WITH OBLIQUES 11/01/24 CLINICAL INFORMATION: M54.16 - Radiculopathy, lumbar region COMPARISON: January 22, 2016 TECHNIQUE: AP oblique and lateral views FINDINGS: Endplate sclerosis marginal osteophyte formation and decreased intervertebral disc height at L5-S1. Small marginal osteophyte formation at multiple levels from L2 to L5 S1. No acute cortical disruption or malalignment. Mild S-shaped curvature of the lumbar spine. No lytic or blastic lesions. Vascular clips in the right upper quadrant abdomen. IMPRESSION: Multilevel spondylosis pronounced at L5-S1 and to a lesser extent L4-5. XR CERVICAL SPINE 11/01/24 CLINICAL INFORMATION: M54.12 - Radiculopathy, cervical region COMPARISON: January 22, 2016. TECHNIQUE: AP oblique lateral and atlantoodontoid views. FINDINGS: Craniocervical junction is intact. Anterior and posterior marginal osteophytes formations, decreased intervertebral disc height and endplate sclerosis C5-6 and to a lesser extent C6-7. Left neuroforamina and narrowing on a degenerative basis C5-C6 C6-7. No gross acute cortical disruption. No gross malalignment. No lytic or blastic lesions IMPRESSION: Spondylosis C5-6 and C6-7, worsened since prior exam. Assessment & Plan Assessment & Plan (1) Cervical radiculopathy: Code(s): M54.12 - Radiculopathy, cervical region Category: Medical (2) Cervical spondylosis: Code(s): M47.812 - Spondylosis without myelopathy or radiculopathy, cervical region Category: Medical (3) Lumbar radiculopathy: Code(s): M54.16 - Radiculopathy, lumbar region Category: Medical (4) Lumbar spondylosis: Code(s): M47.816 - Spondylosis without myelopathy or radiculopathy, lumbar region Category: Medical (5) Chronic neck and back pain: Code(s): M54.2 - Cervicalgia; M54.9 - Dorsalgia, unspecified; G89.29 - Other chronic pain Category: Medical (6) Lipoma of left shoulder: Code(s): D17.22 - Benign lipomatous neoplasm of skin and subcutaneous tissue of left arm Category: Medical Plan The plan includes initiating physical therapy for both neck and back pain, before considering interventional procedures. X-rays of the neck and back have been completed after today's visit and noted for multilevel spondylosis in cervical and lumbar spine. If physical therapy is ineffective, diagnostic injections may be considered to evaluate the potential benefit of radiofrequency ablation or stimulation procedures for long-term pain relief. The patient is advised to continue staying active, including dancing and walking, maintain good posture, adequate hydration and well balanced diet. Consider cervical support pillow for improved sleep. A referral to a General Surgeon has been made for evaluation of the lipoma on the left shoulder, although it is not currently causing pain or functional impairment. Patient walks to her appointments as she has no transportation. [facility] [place] were discussed with patient and contact information was provided to her. All questions and concerns have been answered and patient agreed with the treatment plan. Follow up after PT and sooner as needed. Patient was informed and verbally consented to the use of an ambient scribe for clinic note documentation during this visit. Orders: Orders XR cervical spine 4V Today M47.812 - Spondylosis without myelopathy or radiculopathy, cervical region, M54.12 - Radiculopathy, cervical region XR lumbar spine 4V min Today M47.816 - Spondylosis without myelopathy or radiculopathy, lumbar region, M54.16 - Radiculopathy, lumbar region PT Evaluation and Treatment Today G89.29 - Other chronic pain, M47.812 - Spondylosis without myelopathy or radiculopathy, cervical region, M47.816 - Spondylosis without myelopathy or radiculopathy, lumbar region, M54.12 - Radiculopathy, cervical region, M54.16 - Radiculopathy, lumbar region, M54.2 - Cervicalgia, M54.9 - Dorsalgia, unspecified Referrals General Surgery Referral D17.22 - Benign lipomatous neoplasm of skin and subcutaneous tissue of left arm Coding Level of Care Code New Pt Level 4 (95262) Diagnoses Cervical radiculopathy M54.12 Cervical spondylosis M47.812 Lumbar radiculopathy M54.16 Lumbar spondylosis M47.816 Chronic neck and back pain M54.2; M54.9; G89.29 Lipoma of left shoulder D17.22
[2024-11-01 13:48] VITALS: BP 104/65; PULSE 80; O2SAT 100; BMI 20.8
--- OUTSIDE RECORDS SUMMARY | 2024-11-01 17:28 | XMS_ITS | Clinical Summary ---
Author Organization [address] [place] [address] Address [address] [place] [address] Phone Care Team Providers Care Counter Dish Carrier Name Role Phone Rama Lockett MD Primary Care Provider [phone] Allergies Active Allergy Reactions Criticality Noted Date [...] Cervical Cancer Screening: HPV (03/30/2014) Pathologist [facility] Cervical Cancer Screening: HPV no interpreta tion,abstr acted us Historical Provider HEALTH MAINTENANCE Final Result from Last 3 Months or Most Recently Relevant to Health Maintenance Insurance [facility] [employer] Care Teams Counter Dish Carrier Relationship Specialty Start Date End Date Rama Lockett MD [address] [place] [address] , [address] [facility]ician [facility] D/B/A: [facility] [place] PCP - General Internal Medicine 08/12/16
--- OUTSIDE RECORDS SUMMARY | 2024-11-01 17:28 | XMS_ITS | Patient Health Record ---
Author Organization [facility] Address [address] [place] [address] Care Team Providers Care Pressurised Container Filler Name Role Phone Rama Mays Primary Care Provider Narayan Kiran Unavailable [phone] Allergies Allergen (clinical drug ingredient) Drug/Non Drug Allergy documented on EMR Reaction Allergy Type Onset Date Status Sulfa Unknown Drug Allergy Active Reason For Referral No Information Medications Medication SIG (Take, Route, Frequency, Duration) Notes Start Date End Date Status Omeprazole Not-Takin g Dicyclomine HCl 10 MG 1-2 Orally QID prn abdominal bloating/discomfort for 30 days 02/05/2016 Active Vitamin D 2000 UNIT Orally Once a day Active Problems Problem Type SNOMED Code ICD Code Onset Dates Problem Status W/U Status Risk Notes Problem [id number] Abdominal bloating (R14.0) Active confirmed Problem [id number] Irritable bowel syndrome, unspecified type (K58.9) Active confirmed Plan Of Treatment Future Test Test Name Order Date COLONOSCOPY 10/23/2011 Insurance Providers Payer Name Payer Address Payer Phone Subscriber Number Group Number Insured Name Patient Relationship to Insured Coverage Start Date Coverage End Date [facility] Typeform [facility] [address] [address] [place], [place] [id number] BEATRIZ JI Self - patient is the insured Medical (General) History Medical History History ICD Code Denies ID,DM,CVA,Lung disease,renal dise ase GERD/gastritis with H. pylori found on E GD [place] [address] Edwar Kincaid. screening colonoscopy in 11/2011 ex cept internal hemorrhoids Surgical History Surgery Date(Month/Year) BTL
== END 2024-11-01 14:27 | disposition home or self-care (01) ==
LOC: HO.PMC 13:33
PROVIDERS: PCP Internal Medicine; Visit Provider Nurse Practitioner Family
DX: M54.12 Radiculopathy, cervical region (principal); M47.812 Spondylosis without myelopathy or radiculopathy, cervical region; M54.16 Radiculopathy, lumbar region; M47.816 Spondylosis without myelopathy or radiculopathy, lumbar region; M54.2 Cervicalgia; M54.9 Dorsalgia, unspecified; G89.29 Other chronic pain; D17.22 Benign lipomatous neoplasm of skin and subcutaneous tissue of left arm
CPT/HCPCS: 99204

== ENCOUNTER → 2024-11-01 14:30 | Outpatient (BNV) | payer MEDICARE, MEDICAID, SELFPAY | PROVIDERS: PCP Internal Medicine; Visit Provider Radiology Diagnostic Radiology | DX: M47.22 Other spondylosis with radiculopathy, cervical region (principal); M47.27 Other spondylosis with radiculopathy, lumbosacral region | CPT/HCPCS: 72050; 72110 ==

== ENCOUNTER → 2024-11-05 14:20 | Outpatient (BNV) | payer MEDICARE, MEDICAID, SELFPAY | PROVIDERS: PCP Internal Medicine; Visit Provider Radiology Diagnostic Radiology | DX: R51.9 Headache, unspecified (principal) | CPT/HCPCS: 70551 ==

== ENCOUNTER 2024-11-05 14:21 | Outpatient (REF) | payer MEDICARE, MEDICAID, SELFPAY ==
--- NOTE | ~2024-11-05 | MR_ITS ---
EXAMINATION: MR BRAIN WITHOUT IV CONTRAST HISTORY: R51.9 - Headache, unspecified TECHNIQUE: Sagittal T1, and axial T1, FLAIR, T2, gradient echo, and diffusion weighted MR images of the brain were obtained. COMPARISON: There are no prior studies available for comparison. FINDINGS: The pituitary is normal in size. The cerebellar tonsils are normally located. A few scattered periventricular and subcortical white matter hyperintensities are noted on the FLAIR and T2-weighted images. These are nonspecific, but often seen in the setting of small vessel ischemic disease. Nunn/white differentiation is otherwise normal. There is no mass effect or midline shift. The ventricular system is normal in size and configuration. No intra or extra-axial fluid collections are identified. There are no foci of restricted diffusion. Normal vascular flow voids are noted in the basilar and carotid arteries. The visualized paranasal sinuses are clear. MR/MR head/brain wo con IMPRESSION: Nonspecific white matter hyperintensities, likely representing small vessel ischemic disease. Otherwise unremarkable MRI of the brain without contrast. Electronically signed by: Narayan Perez MD 11/07/2024 07:42 AM EDT
--- OUTSIDE RECORDS SUMMARY | 2024-11-05 14:25 | XMS_ITS | Patient Health Record ---
Author Organization [facility] Address [address] [place] [address] Care Team Providers Care Conduit Installer Name Role Phone Rama Mays Primary Care Provider Narayan Kiran Unavailable [phone] Allergies Allergen (clinical drug ingredient) Drug/Non Drug [...] Problem Status W/U Status Risk Notes Problem [id number] Abdominal bloating (R14.0) Active confirmed Problem [id number] Irritable bowel syndrome, unspecified type (K58.9) Active confirmed Plan Of Treatment Future Test Test Name Order Date COLONOSCOPY 10/23/2011 Insurance Providers Payer Name Payer Address Payer Phone Subscriber Number Group Number Insured Name Patient Relationship to Insured Coverage Start Date Coverage End Date [facility] [address] [address] [place], [place] [id number] BEATRIZ JI Self - patient is the insured Medical (General) History Medical History History ICD Code Denies [place],DM,CVA,Lung disease,renal dise ase GERD/gastritis with H. pylori [place] E GD [place] [address] Edwar Kincaid. screening colonoscopy in 11/2011 ex cept internal hemorrhoids Surgical History Surgery Date(Month/Year) BTL
--- OUTSIDE RECORDS SUMMARY | 2024-11-05 14:25 | XMS_ITS | Clinical Summary ---
Author Organization [address] [place] [address] [address] [place] [address] Phone Care Team Providers Care Clock Mechanic Name Role Phone Rama Lockett MD Primary Care Provider [phone] Allergies Active Allergy Reactions Criticality Noted Date [...] * Cervical Cancer Screening: HPV (03/30/2014) Pathologist [facility] Cervical Cancer Screening: HPV no interpreta tion,abstr acted us Historical Provider HEALTH MAINTENANCE Final Result from Last 3 Months or Most Recently Relevant to Health Maintenance Insurance [facility] [employer] Care Teams Clock Mechanic Relationship Specialty Start Date End Date Rama Lockett MD [address] [place] [address] , [address] [facility] [place] PCP - General Internal Medicine 08/12/16
== END 2024-11-05 14:22 | disposition home or self-care (01) ==
LOC: HO.MRI 14:21
PROVIDERS: PCP Internal Medicine; Visit Provider Internal Medicine
DX: R51.9 Headache, unspecified (principal)
CPT/HCPCS: 70551

== ENCOUNTER 2024-11-14 13:15 | Outpatient (AMB) | payer MEDICARE, MEDICAID, SELFPAY ==
[2024-11-14 13:27] VITALS: BP 110/54; PULSE 41; RESP 18; TEMP 36.2; O2SAT 98; BMI 20.4
--- NOTE | 2024-11-14 13:27 | A.OFFPC_ITS ---
Vital Signs 11/14/24 13:27 Height 5 ft 8 in Weight 134 lb BMI 20.4 BP 110/54 L Blood Pressure Location Lt brachial Position Sitting Respiration 18 Pulse 41 L Pulse Source Pulse Oximeter Temp 97.1 F Temp Source Temporal Artery Scan Pulse Oximetry (%) 98 Oxygen Delivery Method Room Air Intake Visit Reasons: Discuss MRI results Forging Roll Operator Required: No Accompanied by: Self / Same As Patient Allergies Sulfa (Sulfonamide Antibiotics) Allergy (Intermediate, Verified 11/14/24 13:35) swelling, itchiness Medication List - Last Reconciled 11/14/24 by Rama Lockett MD albuterol sulfate 0.8333 mg PO Q6H budesonide-formoterol 160-4.5 mcg/actuation (Symbicort) 2 puffs inhalation BID 30 days calcium carbonate-vitamin D3 500 mg-10 mcg (400 unit) (Oyster Shell Calcium- Vitamin D3) 1 tab PO BID 90 days ipratropium bromide 2 sprays intranasal TID-QID PRN sumatriptan succinate 25 mg PO Q2-4H PRN 30 days Ventolin HFA 90 mcg/actuation (albuterol sulfate) 2 puffs inhalation Q6H PRN 30 days NS Tobacco use date assessed: 11/14/24 Fall risk assessment: No Falls in past year Last assessed Fall Risk: 11/14/24 Dental Screening Dental Screen Date: 11/14/24 Did you have a dental visit in the last 12 months?: Yes Did you have a dental problem in the last 6 months where you did not have access to dental care?: No Was dental information given to patient?: Patient has dentist HPI HPI Comments History of Present Illness Details The patient is a 64-year-old female presenting with migraines. The migraines occur almost daily and are managed with sumatriptan, which provides temporary relief, although the headaches frequently recur. The patient has a history of chronic small vessel disease, identified on an MRI that showed no significant abnormalities related to the migraines. The MRI was otherwise normal, with no evidence of masses or hemorrhage. The patient experiences bradycardia and reports occasional low diastolic blood pressure readings, especially when lying on the left side. There is a family history of myocardial infarction, with both parents having from heart attacks, the mother at age 51. [facility] Medical History (Updated 11/14/24 @ 13:45 by Rama Lockett MD) Allergic rhinitis Mild recurrent major depression Pure hypercholesterolemia Hypovitaminosis D Moderate persistent asthma Surgical History History of tubal ligation Family History Father Asthma Heart attack Mother Heart attack Asthma Sister History of breast cancer Family/Other Ovarian cancer Maternal Uncle Prostate cancer Paternal Uncle Colon cancer Social History Housing: Apartment Alcohol intake: never Patient Tobacco Use Status: Never used Tobacco e-Cigarette/Vaping Use: Never Used Second Hand Smoke Exposure: No service: No Current occupational status: disabled Cognitive needs: No Hearing needs: No Vision needs: Yes Female Reproductive History Menstrual Age of Menarche: 12 Questionnaire Thrive Questionnaire Date Thrive assessed: 05/02/24 I am a: Patient What is your living situation today?: I have a steady place to live Within the past 12 months, did the food you bought not last and you didn't have the money to get more?: Never true Within the past 12 months, did you worry whether your food would run out before you got money to buy more?: Never true Do you have trouble paying for medicines?: No Do you have trouble getting transportation to medical appointments?: No Do you have trouble paying your heating and electricity bill?: No Do you have trouble taking care of your child, family member or friend?: No Do you have trouble with day-to-day activities such as bathing, preparing meals, shopping, managing finances, etc.?: No Are you currently unemployed and looking for a job?: No Are you interested in more education?: No Please select the resources that you would like help with: None Currently or been in a relationship where the following occur: No concerns reported THRIVE Score: 0 JUSTUS-7 AMB Questionnaire JUSTUS-7 Date JUSTUS - 7 assessed: 03/07/24 Source: Developed by Drs. Narayan Nuñez, Thea Fisher, Radhames Young and colleagues, with an educational mark from [employer]. Review of Systems Const All systems reviewed & are unremarkable except as noted in HPI and below Card Denies chest pain at rest, Denies chest pain with activity, Denies edema, Denies irregular heart rhythm, Denies claudication, Denies dyspnea, Denies dyspnea on exertion, Denies orthopnea, Denies paroxysmal nocturnal dyspnea and Denies slow heart rate Resp Denies cough, Denies dyspnea and Denies dyspnea on exertion GI Denies abdominal pain, Denies change in bowel habits, Denies excessive flatus, Denies nausea and Denies vomiting Physical exam (Primary Care) Vital Signs: Last Vital Signs Temp 97.1 F 11/14/24 13:27 Pulse 41 L 11/14/24 13:27 Resp 18 11/14/24 13:27 BP 110/54 L 11/14/24 13:27 Pulse Ox 98 11/14/24 13:27 Oxygen Delivery Method Room Air 11/14/24 13:27 BMI result Body Mass Index 20.4 Tobacco/Smoking Status: Tobacco use Status Tobacco use date assessed 11/14/24 11/14/24 13:33 Patient Tobacco Use Status Never used Tobacco 11/14/24 13:33 e-Cigarette/Vaping Use Never Used 11/14/24 13:33 Thrive Assessment: Date of Thrive Assessment Date Thrive assessed 05/02/24 11/14/24 13:33 Currently or been in a relationship where the following occur: No concerns reported Resp Effort & Inspection: normal respiratory effort Auscultation: clear to auscultation bilaterally Cardio Jugular venous distension: no JVD Rate: regular rate Rhythm: regular rhythm Heart sounds: S1 normal heart sound present and S2 normal heart sound present Extrem General: Yes full ROM Coding Level of Care Code Est Pt Level 3 (56736) Diagnoses Migraines G43.909 Moderate persistent asthma J45.40 Bradycardia R00.1 Time Spent (min) 19 Assessment & Plan Assessment & Plan (1) Migraines: Code(s): G43.909 - Migraine, unspecified, not intractable, without status migrainosus Category: Medical (2) Moderate persistent asthma: Code(s): J45.40 - Moderate persistent asthma, uncomplicated Category: Medical (3) Bradycardia: Code(s): R00.1 - Bradycardia, unspecified Category: Medical Plan Plan Patient was informed and verbally consented to the use of an ambient scribe for clinic note documentation during this visit. 1. Migraine, unspecified, not intractable, without status migrainosus G43.909 The patient experiences migraines almost daily, managed with sumatriptan, which provides temporary relief. A preventative medication was discussed, but the patient declined due to a preference to avoid additional medications. 2. Bradycardia, unspecified R00.1 The patient exhibits bradycardia with occasional low diastolic blood pressure readings. A referral to cardiology for further evaluation, including a Holter monitor to assess cardiac rhythm over two days, was planned. Orders: Orders ECG holter monitor 48 hour Today R00.1 - Bradycardia, unspecified Referrals Cardiology Referral R00.1 - Bradycardia, unspecified
--- OUTSIDE RECORDS SUMMARY | 2024-11-14 14:42 | XMS_ITS | Patient Health Record ---
Author Organization [facility] Address [address] [place] [address] Care Team Providers Care Sql Report Analyst Name Role Phone Rama Mays Primary Care Provider Narayan Kiran Unavailable [phone] Allergies Allergen (clinical drug ingredient) Drug/Non Drug [...] Problem Status W/U Status Risk Notes Problem [id number] Abdominal bloating (R14.0) Active confirmed Problem 61649161 Irritable bowel syndrome, unspecified type (K58.9) Active confirmed Plan Of Treatment Future Test Test Name Order Date COLONOSCOPY 10/23/2011 Insurance Providers Payer Name Payer Address Payer Phone Subscriber Number Group Number Insured Name Patient Relationship to Insured Coverage Start Date Coverage End Date [facility] [address] [address] [place], [place] [id number] BEATRIZ JI Self - patient is the insured Medical (General) History Medical History History ICD Code Denies [place],DM,CVA,Lung disease,renal dise ase GERD/gastritis with H. pylori [place] on E GD [place] [address] Edwar Kincaid. screening colonoscopy in 11/2011 ex cept internal hemorrhoids Surgical History Surgery Date(Month/Year) BTL
== END 2024-11-14 13:47 | disposition home or self-care (01) ==
LOC: HO.HMCH 13:16
PROVIDERS: PCP Internal Medicine; Visit Provider Internal Medicine
DX: G43.909 Migraine, unspecified, not intractable, without status migrainosus (principal); J45.40 Moderate persistent asthma, uncomplicated; R00.1 Bradycardia, unspecified

== ENCOUNTER → 2024-11-14 13:15 | Outpatient (BNVA) | payer MEDICARE, MEDICAID, SELFPAY | PROVIDERS: PCP Internal Medicine; Visit Provider Internal Medicine | DX: J45.40 Moderate persistent asthma, uncomplicated (principal); R00.1 Bradycardia, unspecified; G43.909 Migraine, unspecified, not intractable, without status migrainosus | CPT/HCPCS: 99212 ==

== ENCOUNTER 2024-11-21 13:43 | Outpatient (AMB) | payer MEDICARE, MEDICAID, SELFPAY ==
--- NOTE | 2024-11-21 13:45 | MHC.OFFVIS ---
Vital Signs 11/21/24 13:49 Height 5 ft 8 in Weight 134 lb BMI 20.4 BP 107/58 L Blood Pressure Location Lt brachial Position Sitting Pulse 83 Pulse Source Pulse Oximeter Pulse Oximetry (%) 100 Oxygen Delivery Method Room Air Intake Visit Reasons: Discuss X-Ray Results Intake Note: Pain today 05/26 Chemistry Instructor Required: No Accompanied by: Self / Same As Patient Allergies Sulfa (Sulfonamide Antibiotics) Allergy (Intermediate, Verified 11/21/24 13:49) swelling, itchiness HPI Comments Details: The patient is a 64-year-old female presenting with neck and back pain and discuss recent spine xray results. The patient reports that the pain has worsened over time, particularly in the cervical region lower neck and lower back regions. Pain affects her daily activities, functioning, mobility and sleep. She was provided with physical therapy referral at previous visit, this has not been scheduled yet. Cervical and lumbar spine xrays revealed spondylosis C5-6 and C6-7, worsened since prior exam and multilevel spondylosis pronounced at L5-S1 and to a lesser extent L4-5 associated with marginal osteophyte formation at multiple levels which contributes to her ongoing symptoms. Denies any recent cough, cold, infection, fever or any significant changes in medical history since last office visit. PRIOR: The patient is a 63-year-old female presenting with chronic neck pain and sciatica. The neck pain has been present for a long time, with no prior evaluations or treatments sought. The pain radiates to the left shoulder but does not extend down the arm. The sciatica is localized to the right side, extending from the buttock to the foot, and has been occurring for a few months. There were no specific inciting events reported. Denies previous spine surgery or injections. 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 It is not painful upon palpation and has not been previously reported to her primary care provider. Patient requests surgical consult to further evaluate this as this has been increasing in size. The patient experiences depression, which she manages through dancing and staying active, without psychiatric intervention. She reports insomnia, a condition she has experienced since childhood, and is awaiting a Neurology appointment for further evaluation. She also has migraines, for which she takes sumatriptan. - Neck pain: Chronic, radiates to left shoulder, does not extend down the arm - Sciatica: Right-sided, extends from buttock to foot, present for a few months - Exacerbating factors: Movement, particularly left neck rotation and extension - Relieving factors: Resting, heat therapy, does not like to take medications - Affect: Depression managed through dancing and staying active - Analgesia: No current pain medications mentioned for neck pain or sciatica - Adverse Effects: None reported - Activities of Daily Living: Pain impacts sleep and daily activities, but patient remains active - Aberrant Drug Related Behaviors: None reported [facility] Medical History Allergic rhinitis Mild recurrent major depression Pure hypercholesterolemia Hypovitaminosis D Moderate persistent asthma Surgical History History of tubal ligation Family History Father Asthma Heart attack Mother Heart attack Asthma Sister History of breast cancer Family/Other Ovarian cancer Maternal Uncle Prostate cancer Paternal Uncle Colon cancer Social History Housing: Apartment Alcohol intake: never Patient Tobacco Use Status: Never used Tobacco e-Cigarette/Vaping Use: Never Used Second Hand Smoke Exposure: No service: No Current occupational status: disabled Cognitive needs: No Hearing needs: No Vision needs: Yes Female Reproductive History Menstrual Age of Menarche: 12 Review of Systems Const Details: - Musculoskeletal: Reports neck and back pain, denies leg or arm pain - Neurological: Reports headaches associated with chronic neck pain, denies other neurological symptoms - Cardiovascular: Denies chest pain, reports history of uncontrolled blood pressure All systems reviewed & are unremarkable except as noted in HPI and below Physical Exam Vital Signs: Last Vital Signs Pulse 83 11/21/24 13:49 BP 107/58 L 11/21/24 13:49 Pulse Ox 100 11/21/24 13:49 Oxygen Delivery Method Room Air 11/21/24 13:49 BMI result Body Mass Index 20.4 General: Appears afebrile. Alert and oriented. Mood and affect appropriate. Follows and participates in conversation appropriately. Respiratory effort is unlabored. No cough. Able to transition from sit to stand unassisted. Ambulates with bilaterally normal heel strike and toe off. Neck Neck: Yes normal visual inspection, Yes full ROM, Yes no lymphadenopathy, Yes supple, No anterior neck swelling, Yes no JVD, No prominent supraclavicular fat pad, No prominent dorsocervical fat pad and Yes other (left shoulder lipoma, non-tender, mobile, ~ 2x2 inch) General: Yes no CVA tenderness Back/Spine/Pelvis Back: no CVA tenderness Cervical Spine: cervical ROM normal, No Lhermitte's sign positive, cervical muscular tenderness, pain with cervical ROM (lateral rotations and extension), No Cervical spine scars present, cervical spasm, No Cervical spine tenderness and No step off deformity Thoracic/Lumbar Spine: thoracic and lumbar spine normal to inspection, No Thoracic/lumbar spine scar(s), Lasegue's sign negative, straight leg raise negative bilaterally, pain with thoraco-lumbar ROM, paraspinal muscle tenderness, thoraco-lumbar ROM limited, Thoracic/lumbar scoliosis, No thoracic spinal tenderness and lumbar spinal tenderness (L4-S1) Sacroiliac joints: bilaterally nontender Results Reviewed Results Reviewed: XR LUMBOSACRAL SPINE WITH OBLIQUES 11/01/24 CLINICAL INFORMATION: M54.16 - Radiculopathy, lumbar region COMPARISON: January 22, 2016 TECHNIQUE: AP oblique and lateral views FINDINGS: Endplate sclerosis marginal osteophyte formation and decreased intervertebral disc height at L5-S1. Small marginal osteophyte formation at multiple levels from L2 to L5 S1. No acute cortical disruption or malalignment. Mild S-shaped curvature of the lumbar spine. No lytic or blastic lesions. Vascular clips in the right upper quadrant abdomen. IMPRESSION: Multilevel spondylosis pronounced at L5-S1 and to a lesser extent L4-5. XR CERVICAL SPINE 11/01/24 CLINICAL INFORMATION: M54.12 - Radiculopathy, cervical region COMPARISON: January 22, 2016. TECHNIQUE: AP oblique lateral and atlantoodontoid views. FINDINGS: Craniocervical junction is intact. Anterior and posterior marginal osteophytes formations, decreased intervertebral disc height and endplate sclerosis C5-6 and to a lesser extent C6-7. Left neuroforamina and narrowing on a degenerative basis C5-C6 C6-7. No gross acute cortical disruption. No gross malalignment. No lytic or blastic lesions IMPRESSION: Spondylosis C5-6 and C6-7, worsened since prior exam. Assessment & Plan Assessment & Plan (1) Cervical spondylosis: Code(s): M47.812 - Spondylosis without myelopathy or radiculopathy, cervical region Category: Medical (2) Lumbar spondylosis: Code(s): M47.816 - Spondylosis without myelopathy or radiculopathy, lumbar region Category: Medical (3) Chronic neck and back pain: Code(s): M54.2 - Cervicalgia; M54.9 - Dorsalgia, unspecified; G89.29 - Other chronic pain Category: Medical Plan The plan includes initiating physical therapy to address the neck and back pain associated with arthritis. If physical therapy does not provide relief, the patient may consider interventional procedures such as peripheral nerve stimulation or radiofrequency ablation for longer-term pain management. All questions and concerns have been answered and patient agreed with the treatment plan. Follow up after PT and sooner as needed. Patient was informed and verbally consented to the use of an ambient scribe for clinic note documentation during this visit. Coding Level of Care Code Est Pt Level 3 (36429) Complex EM visit Add On G2211 Diagnoses Cervical spondylosis M47.812 Lumbar spondylosis M47.816 Chronic neck and back pain M54.2; M54.9; G89.29
[2024-11-21 13:49] VITALS: BP 107/58; PULSE 83; O2SAT 100; BMI 20.4
--- OUTSIDE RECORDS SUMMARY | 2024-11-21 16:10 | XMS_ITS | Patient Health Record ---
Author Organization [facility] Address [address] [place] [address] Care Team Providers Care Ragman Name Role Phone Rama Mays Primary Care Provider Narayan Kiran Unavailable [phone] Allergies Allergen (clinical drug ingredient) Drug/Non Drug [...] Problem Status W/U Status Risk Notes Problem [id number] Abdominal bloating (R14.0) Active confirmed Problem 89441798 Irritable bowel syndrome, unspecified type (K58.9) Active confirmed Plan Of Treatment Future Test Test Name Order Date COLONOSCOPY 10/23/2011 Insurance Providers Payer Name Payer Address Payer Phone Subscriber Number Group Number Insured Name Patient Relationship to Insured Coverage Start Date Coverage End Date [facility] [address] [address] [place], [place] [id number] BEATRIZ JI Self - patient is the insured Medical (General) History Medical History History ICD Code Denies [place],DM,CVA,Lung disease,renal dise ase GERD/gastritis with H. pylori found on E GD [place] [address] Edwar Kincaid. screening colonoscopy in 11/2011 ex cept internal hemorrhoids Surgical History Surgery Date(Month/Year) BTL
--- OUTSIDE RECORDS SUMMARY | 2024-11-21 16:10 | XMS_ITS | Clinical Summary ---
Author Organization 175 [facility] Address [address] [place] [address] Phone Care Team Providers Care Magnetic Tape Winder Name Role Phone Rama Lockett MD Primary Care Provider [phone] Allergies Active Allergy Reactions Criticality Noted Date [...] 05/18/2024 1:03 PM EDT Plan of Treatment Upcoming Encounters Date Type Department Care Team (Late st Contact Info) Description 12/19/2024 2:00 PM EST Office Visit Orthopedic Surgery - [place] [address] [phone] Hernán Dover DPM [address] [address] Health Maintenance Due Date Last Done Comments Breast Cancer Screening 1960 Colorectal Cancer Screening: Colonoscopy 1960 Hepatitis B Vaccines (3 of 3 - 19+ 3-dose series) 02/18/2017 10/21/2016, 08/18/2016 Cervical Cancer Screening: Pap Smear 03/30/2017 03/30/2014, 03/30/2014 Depression Screening 02/17/2024 Osteoporosis Screening (Bone Density Screening) 03/30/2024 Social Influencers of Health Screening 03/30/2024 COVID-19 Vaccine ( season) 2024 01/21/2021, 05/19/2020 Influenza Vaccine (#1) 2024 , 11/17/2022, 11/06/2021, Additional history exists Falls Risk Assessment 11/06/2024 DTaP,Tdap,and Td Vaccines (2 - Td or Tdap) 03/07/2034 03/07/2024 RSV Immunization Adult Patients (1 - 1-dose 75+ series) 11/06/2034 Hepatitis C Screening Completed 08/14/2016 Zoster Vaccines [...] Procedure Name Priority Date/Time Associated Diagnosis Comments HM HEPATITIS C SCREENING Routine 08/14/2016 HM HPV Routine 03/30/2014 from Last 3 Months or Most Recently Relevant to Health Maintenance Results * Hm Hepatitis C Screening (08/14/2016) Hepatitis C Screening abstracted us Historical Provider HEALTH MAINTENANCE Final Result * Cervical Cancer Screening: HPV (03/30/2014) Cervical Cancer Screening: HPV no interpreta tion,abstr acted us Historical Provider HEALTH MAINTENANCE Final Result from Last 3 Months or Most Recently Relevant to Health Maintenance Insurance [facility] Care Teams Magnetic Tape Winder Relationship Specialty Start Date End Date Rama Lockett MD [address] [facility] , [address] [facility] [place], [place] PCP - General Internal Medicine 08/12/16
== END 2024-11-21 13:59 | disposition home or self-care (01) ==
LOC: HO.PMC 13:44
PROVIDERS: PCP Internal Medicine; Visit Provider Nurse Practitioner Family
DX: M47.812 Spondylosis without myelopathy or radiculopathy, cervical region (principal); M47.816 Spondylosis without myelopathy or radiculopathy, lumbar region; M54.2 Cervicalgia; M54.9 Dorsalgia, unspecified; G89.29 Other chronic pain
CPT/HCPCS: 99213; G2211

== ENCOUNTER → 2024-11-21 13:43 | Outpatient (BNVA) | payer MEDICARE, MEDICAID, SELFPAY | PROVIDERS: PCP Internal Medicine; Visit Provider Nurse Practitioner Family | DX: M47.812 Spondylosis without myelopathy or radiculopathy, cervical region (principal); M47.816 Spondylosis without myelopathy or radiculopathy, lumbar region; M54.2 Cervicalgia; M54.9 Dorsalgia, unspecified; G89.29 Other chronic pain | CPT/HCPCS: 99212 ==

== ENCOUNTER 2024-12-08 10:46 | Outpatient (AMB) | payer MEDICARE, MEDICAID, SELFPAY ==
--- NOTE | 2024-12-08 10:47 | A.OFFVIS_ITS ---
Vital Signs 12/08/24 10:48 Height 5 ft 8 in Weight 137 lb BMI 20.8 Intake Visit Reasons: Benign lipomatous neoplasm of skin and subcutaneou Intake Note: This patient presents for an assessment for Benign lipomatous neoplasm of skin and subcutaneous. Pt c/o; left shoulder mass, discomfort when lifting, denies redness, fever or chills. Bank Representative Required: No Accompanied by: Spouse Allergies Sulfa (Sulfonamide Antibiotics) Allergy (Intermediate, Verified 12/08/24 10:53) swelling, itchiness HPI HPI Benign lipomatous neoplasm of skin and subcutaneou: Details: [age] year old female referred for a lipoma. She says she has 2 lumps on her left shoulder that she wants removed. She says he has had these for years and these have been starting to bother her. She denies any drainage. She says she has no other medical issues and is healthy overall. [facility] Medical History (Updated 12/08/24 @ 10:59 by Sudhakar Hernandez MD) Epidermal cyst Allergic rhinitis Mild recurrent major depression Pure hypercholesterolemia Hypovitaminosis D Moderate persistent asthma Surgical History History of tubal ligation Family History Father Asthma Heart attack Mother Heart attack Asthma Sister History of breast cancer Family/Other Ovarian cancer Maternal Uncle Prostate cancer Paternal Uncle Colon cancer Social History Housing: Apartment Alcohol intake: never Patient Tobacco Use Status: Never used Tobacco e-Cigarette/Vaping Use: Never Used Second Hand Smoke Exposure: No service: No Current occupational status: disabled Cognitive needs: No Hearing needs: No Vision needs: Yes Female Reproductive History Menstrual Age of Menarche: 12 Review of Systems Const Denies chills and Denies fever(s) Card Denies chest pain, Denies dyspnea and Denies dyspnea on exertion Resp Denies cough, Denies dyspnea and Denies dyspnea on exertion GI Denies hematochezia and Denies change in bowel habits Denies hematuria Musc Denies back pain and Denies limited range of motion Neuro Denies focal weakness and Denies convulsions Psych Denies depression and Denies mood swings Physical Exam Vital Signs: BMI result Body Mass Index 20.8 Const General: comfortable and no acute distress Orientation/consciousness: patient oriented x3 Neck Neck: Yes no lymphadenopathy Chest Other: Left shoulder - cystic mass, about 8 mm; posterior to this is note of a lipomatous mass, about 3.5 cm Resp Auscultation: clear to auscultation bilaterally Cardio Rhythm: regular rhythm GI Palpation (GI): Soft to palpation, nontender and no guarding Neuro General: patient oriented x3 Assessment & Plan Assessment & Plan (1) Lipoma of left shoulder: Code(s): D17.22 - Benign lipomatous neoplasm of skin and subcutaneous tissue of left arm Category: Medical Plan: I explained the technique of excision under local anesthesia. I reviewed the risks including but not limited to bleeding and infections, as well as the benefits and alternatives. I reviewed with her what to expect postoperatively. She understands and wants to proceed. This will be done at the same time as the excision of the epidermal cyst on the left shoulder as well. (2) Epidermal cyst: Code(s): L72.0 - Epidermal cyst Category: Medical Plan: This will be removed along with the left shoulder lipoma in the office under local anesthesia. Coding Level of Care Code New Pt Level 3 (89529) Diagnoses Lipoma of left shoulder D17.22 Epidermal cyst L72.0
[2024-12-08 10:48] VITALS: BMI 20.8
--- OUTSIDE RECORDS SUMMARY | 2024-12-08 13:09 | XMS_ITS | Clinical Summary ---
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 , [address] [facility] D/B[facility]A: [facility] [place], [place] PCP - General Internal Medicine 08/12/16
== END 2024-12-08 11:03 | disposition home or self-care (01) ==
LOC: HO.HGS 10:47
PROVIDERS: PCP Internal Medicine; Visit Provider Surgery
DX: D17.22 Benign lipomatous neoplasm of skin and subcutaneous tissue of left arm (principal); L72.0 Epidermal cyst
CPT/HCPCS: 99203

== ENCOUNTER → 2024-12-08 10:46 | Outpatient (BNVA) | payer MEDICARE, MEDICAID, SELFPAY | PROVIDERS: PCP Internal Medicine; Visit Provider Surgery | DX: D17.22 Benign lipomatous neoplasm of skin and subcutaneous tissue of left arm (principal); L72.0 Epidermal cyst | CPT/HCPCS: 99202 ==

== ENCOUNTER → 2024-12-21 13:22 | Outpatient (REF) | payer MEDICARE, MEDICAID, SELFPAY ==
--- OUTSIDE RECORDS SUMMARY | 2024-12-21 16:14 | XMS_ITS | Patient Health Record ---
Author Organization [facility] Address [address] [place] [address] Care Team Providers Care Mud Jack Nozzle Worker Name Role Phone Rama Mays Primary Care Provider Narayan Kiran Unavailable [phone] Allergies Allergen (clinical drug ingredient) Drug/Non Drug Allergy documented on EMR Reaction Allergy Type Onset Date Status Sulfa Unknown Drug Allergy Active Reason For Referral No Information Medications Medication SIG (Take, Route, Frequency, Duration) Notes Start Date End Date Status Omeprazole Not-Takin g Dicyclomine HCl 10 MG 1-2 Orally QID prn abdominal bloating/discomfort; Duration: 30 days 02/05/2016 Active Vitamin D 2000 UNIT Orally Once a day Active Problems Problem Type SNOMED Code ICD Code Onset Dates Problem Status W/U Status Risk Notes Problem Abdominal bloating (346685453) Abdominal bloating (R14.0) Active confirmed Problem Irritable bowel syndrome (76300301) Irritable bowel syndrome, unspecified type (K58.9) Active confirmed Plan Of Treatment Future Test Test Name Order Date COLONOSCOPY 10/23/2011 Insurance Providers Payer Name Payer Address Payer Phone Subscriber Number Group Number Insured Name Patient Relationship to Insured Coverage Start Date Coverage End Date [facility] [email or web address] [facility] [address] [address] [place], [place] [id number] BEATRIZ JI Self - patient is the insured Medical (General) History Medical History History ICD Code Denies MS,DM,CVA,Lung disease,renal dise ase GERD/gastritis with H. pylori found on E GD [place] [address] Vann Neg. screening colonoscopy in 11/2011 ex cept internal hemorrhoids Surgical History Surgery Date(Month/Year) BTL
--- NOTE | 2024-12-28 14:18 | HM_ITS ---
Conclusion: 1. Patient was monitored for total period of 5 days and 2 hours 2. Baseline was normal sinus rhythm with average heart of 69 beats per minute 3. Frequent PVCs noted with total burden of 1.4% without any significant tachyarrhythmias 4. No significant pauses noted 5. No patient reported events MTDD
== END ==
LOC: HO.CARD 13:22
PROVIDERS: PCP Internal Medicine; Visit Provider Internal Medicine
DX: R00.1 Bradycardia, unspecified (principal)
CPT/HCPCS: 93225

== ENCOUNTER 2024-12-28 13:00 | Outpatient (RCR) | payer MEDICARE, MEDICAID, SELFPAY ==
--- NOTE | 2024-12-15 16:11 | MHC.PT.EP ---
[facility] [place] Office [place] Office [place] Office [address] Seg[address] [phone] F: [phone] F: [phone] F: [phone] F: [phone] Physical Therapy Plan of Care Date of Evaluation: 12/15/24 Date of Surgery: n/a Diagnosis: Cervicalgia Dorsalgia, unspecified Other chronic pain Chronic neck and back pain *Cervical radiculopathy *Lumbar radiculopathy *Cervical spondylosis *Lumbar spondylosis Assessment: Pt is a pleasant 64yo F who presents to PT with neck and back pain. She reports her neck pain is worse currently. She presents to PT with current impairments in pain, decreased ROM, decreased strength, soft tissue restrictions, and impaired posture. She is limited functionally by looking up, head rotation, prolonged sitting, and sleeping. She is a good candidate for skilled PT in order to address current impairments to facilitate return to PLOF. She is recommended to be seen 2x/week for 4 weeks and will be reassessed Frequency and Duration: The patient will be seen 2x/week for 4 weeks Short Term Goals: Pt will be I with HEP to promote self management of symptoms Pt will improve B cervical rotation by 10 deg B [facility] Goals: Pt will achieve full ROM all planes of cervical spine to assist with looking up and down Pt will demonstrate improvements in function as evidenced by statistically significant improvement in Neck Pain and Disability Index Questionnaire Treatment Plan: Modalities to reduce pain, spasms and effusion. Manual therapy to restore motion and function. Therapeutic exercise to improve strength and flexibility. Neuromuscular re-education for posture and balance. Therapeutic activities to return to functional activities of daily living. Electronically signed by: Alem Sotomayor, PT, DPT Please sign and return to therapist. Thank you for your referral.
--- NOTE | 2025-01-02 08:20 | MHC.PT.DC ---
[facility] [place] Office [place] Office [place] Office [address] Silvino Segundo [address] [phone] F: [phone] F: [phone] F: [phone] F: [phone] Physical Therapy Discharge Report Diagnosis: Cervicalgia Dorsalgia, unspecified Other chronic pain Chronic neck and back pain *Cervical radiculopathy *Lumbar radiculopathy *Cervical spondylosis *Lumbar spondylosis Date of Surgery: n/a Date of Evaluation: 12/15/24 Date of Discharge: 01/02/25 Treatments to Date: 4 Cancellations to Date: No Shows to Date: Discharge Status: Patient Elected to Stop Discharge Summary: Pt was seen for skilled PT from 12/15/24-12/28/24. Her last attended appointment was 12/28/24 and at that appointment she requested to self D/C from PT. She improved her score on Neck Pain Disability Index Questionnaire from 32/80 on initial PT evaluation to 18/40 on 12/28/24. She was D/C to HEP at last attended session per her request Electronically signed by: Alem Sotomayor, PT, DPT Please sign and return to therapist. Thank you for your referral.
--- NOTE | 2025-01-02 08:23 | MHC.PT.DC ---
[facility] [place] Office [place] Office [place] Office [address] Silvino Segundo [address] [phone] F: [phone] F: [phone] F: [phone] F: [phone] Physical Therapy Discharge Report Diagnosis: Cervicalgia Dorsalgia, unspecified Other chronic pain Chronic neck and back pain *Cervical radiculopathy *Lumbar radiculopathy *Cervical spondylosis *Lumbar spondylosis Date of Surgery: n/a Date of Evaluation: 12/15/24 Date of Discharge: 01/02/25 Treatments to Date: 4 Cancellations to Date: No Shows to Date: Discharge Status: Patient Elected to Stop Discharge Summary: Pt was seen for skilled PT from 12/15/24-12/28/24. Her last attended appointment was 12/28/24 and at that appointment she requested to self D/C from PT. She improved her score on Neck Pain Disability Index Questionnaire from 32/40 on initial PT evaluation to 18/45 on 12/28/24. She was D/C to HEP at last attended session per her request Electronically signed by: Alem Sotomayor, PT, DPT Please sign and return to therapist. Thank you for your referral.
== END 2025-01-02 08:20 | disposition home or self-care (01) ==
LOC: HO.PT 13:00
PROVIDERS: PCP Internal Medicine; Visit Provider Nurse Practitioner Family
DX: M47.22 Other spondylosis with radiculopathy, cervical region (principal); M47.26 Other spondylosis with radiculopathy, lumbar region; M54.2 Cervicalgia; G89.29 Other chronic pain
CPT/HCPCS: 97110; 97162

== ENCOUNTER → 2024-12-28 14:18 | Outpatient (BNV) | payer MEDICARE, MEDICAID, SELFPAY | PROVIDERS: PCP Internal Medicine; Visit Provider Internal Medicine Cardiovascular Disease | DX: I49.3 Ventricular premature depolarization (principal) | CPT/HCPCS: 93244 ==